=== PATIENT | female | born 1960 | race Caucasian/White ===

== ENCOUNTER 2018-02-27 17:27 | Emergency (ER) | payer OTHER ==
[~2018-02-27] VITALS: Ht 167.6 cm; Wt 143.3 kg
[~2018-02-27 17:27] MED LIST: (None)15 GM TOP; ACET325 PO; ACTOS; ARIP15; ARIP20 PO; ARIP30; ARIP30 PO; ASPI81EC; BASAGLAR K100 UNIT/1 SC; BUME2 PO; BUPR150T2; Bactrim Ds Tab1 EACH PO; CEPH500 PO; CHOL10002; CIPR250 PO; CLON1; CLON1 PO; CLOT1TC TOP; CLOTRIMAZOLE AF TOP; DOXY100 PO; ERGO400 PO; FLUO20; FLUT44OIA; FURO40; FURO40 PO; Flagyl500 MG PO; Flonase 0.05% N16 GM; GABA300 PO; GLIM4; HYDACE5 PO; IBUP600 PO; IBUP800 PO; INSDET100; INSULANI; INSULIN; LEVEMIR FL100 UNIT/1 SC; LEVEMIR FL100 UNIT/1 SQ; LORA1 PO; MELA3 PO; MELATONIN10 M2 PO; MELATONIN10 MG PO; METF500; METF500 PO; METO2.5 PO; MIRT15 PO; Macrobid 100 M100 MG PO; Micro-K10 MEQ PO; OMEP20ER PO; OXYACE5T PO; OXYB5 PO; PALI6TA; PALI6TA PO; PARO12.5; PARO20; PARO30; PAXIL CR; PERIDEX15 ML MM; PIOG15; PIOG45 PO; POTA10T; POTCHL10ER; Percocet 5-3251 EACH PO; Prozac40 MG PO; RANI150; RANI150 PO; SUDOGEST; Seroquel100 MG PO; TOPI25 PO; TRAM50 PO; TRAN2; TRAN2 PO; TRAVER4240; TRAZ100; TRAZ150T57 PO; TRAZ50; TRIA80TC TOP; Tylenol325 MG PO; Ultram50 MG PO; VERA240ER PO; ZIPR80; [UNRECOGNIZED DRUG - OTHER]; [UNRECOGNIZED DRUG - OTHER] PO; [UNRECOGNIZED DRUG - OTHER] PO; [UNRECOGNIZED DRUG - REMARK]
[2018-02-27 18:06] LABS: Source, Urine Voided
[2018-02-27] MEDS ORDERED: TRAN2 (18:09)
[2018-02-27] MEDS ORDERED: VERA240ER PO (18:09)
[2018-02-27] MEDS ORDERED: Prozac20 MG PO (18:09)
[2018-02-27] MEDS ORDERED: OXYB5 PO (18:10)
[2018-02-27] MEDS ORDERED: CLON1 PO (18:10)
[2018-02-27] MEDS ORDERED: CHOL10002 (18:10)
[2018-02-27] MEDS ORDERED: BUME2 PO (18:12)
[2018-02-27] MEDS ORDERED: POTCHL10ER PO (18:15)
[2018-02-27] MEDS ORDERED: SPIR25 PO (18:16)
[2018-02-27] MEDS ORDERED: GABA300 PO (18:16)
[2018-02-27] MEDS ORDERED: MELA3 PO (18:16)
[2018-02-27] MEDS ORDERED: OLAN7.5 PO (18:17)
[2018-02-27] MEDS ORDERED: RANI150 PO (18:18)
[2018-02-27] MEDS ORDERED: BASAGLAR K100 UNIT/1 SC (18:18)
[2018-02-27] MEDS ORDERED: SM PAIN RELIEV PO (18:18)
[2018-02-27 18:19] LABS: Appearance, Urine Clear (Clear); Bilirubin, Urine Neg (Neg); Blood, Urine Neg (Neg); Color, Urine Yellow (P-Yellow); Glucose Qualitative, Urine Neg (Neg); Ketones, Urine Neg (Neg); Leukocyte Esterase, Urine 3+ (Neg); Nitrite, Urine Pos (Neg); Protein, Urine Neg (Neg); Urobilinogen, Urine NORM (Normal)
[2018-02-27 18:23] LABS: BASOPHILS ABSOLUTE AUTO 0.03 K/mm3 (0.00-0.23); BASOPHILS PERCENT AUTO 0 % (0-2); EOSINOPHILS ABSOLUTE AUTO 0.71 K/mm3 (0.00-0.68); EOSINOPHILS PERCENT AUTO 7 % (0-6); Hematocrit 40.8 % (33.0-51.0); Hemoglobin 13.3 g/dL (11.5-16.0); IMMATURE GRAN ABSOLUTE AUTO 0.05 K/mm3 (0.00-0.10); IMMATURE GRAN PERCENT AUTO 1 % (0-1); LYMPHOCYTES ABSOLUTE AUTO 2.97 K/mm3 (0.84-5.20); LYMPHOCYTES PERCENT AUTO 30 % (21-46); MONOCYTES ABSOLUTE AUTO 0.94 K/mm3 (0.16-1.47); MONOCYTES PERCENT AUTO 9 % (4-13); Mean Corpuscular HGB 30.5 pg (26.0-34.0); Mean Corpuscular HGB Conc 32.6 g/dL (31.5-36.5); Mean Corpuscular Volume 94 fL (80-100); Mean Platelet Volume 9.6 fL (9.1-12.4); NEUTROPHILS ABSOLUTE AUTO 5.29 K/mm3 (1.96-9.15); NEUTROPHILS PERCENT AUTO 53 % (41-73); Platelet Count 233 K/mm3 (150-400); RDW Coefficient Variation 15.4 % (11.7-14.2); Red Blood Cell Count 4.36 M/mm3 (3.80-5.20); White Blood Cell Count 9.99 K/mm3 (4.00-11.30)
[2018-02-27 18:40] LABS: Albumin, Blood 3.6 g/dL (3.4-5.0); Albumin/Globulin Ratio 0.8 (0.8-1.8); Bilirubin, Total 0.3 mg/dL (0.1-1.0); Bun/Creatinine Ratio 28.4 (12.0-20.0); Calcium, Blood 9.2 mg/dL (8.5-10.1); Creatinine, Blood 2.08 mg/dL (0.40-1.00); Globulin, Blood 4.5 g/dL (2.2-4.0); Potassium, Blood 4.5 mmol/L (3.5-5.5); Total Protein, Blood 8.1 g/dL (6.4-8.2)
[2018-02-27 18:53] LABS: Bacteria Many /hpf; Red Blood Cells, Urine 0-2 /hpf (0-2); Squamous Epithelial Cells Few /hpf (Few); White Blood Cells, Urine 25-50 /hpf (0-5)
[2018-02-27] MEDS ORDERED: NITR100 PO (20:19)
== END 2018-02-27 20:38 | disposition home or self-care (01) ==
LOC: ER 17:27
PROVIDERS: Emergency Medicine
DX: N39.0 Urinary tract infection, site not specified (principal); E11.22 Type 2 diabetes mellitus with diabetic chronic kidney disease; N18.9 Chronic kidney disease, unspecified; N26.1 Atrophy of kidney (terminal); F32.9 Major depressive disorder, single episode, unspecified; E11.9 Type 2 diabetes mellitus without complications; Z87.891 Personal history of nicotine dependence; Z88.0 Allergy status to penicillin; Z79.899 Other long term (current) drug therapy; Z79.4 Long term (current) use of insulin; G40.909 Epilepsy, unspecified, not intractable, without status epilepticus
CPT/HCPCS: 36415; 76770; 80053; 81001; 82947; 85025; 87077; 87086; 87186; 96374; 96375; 99284; J0696; J1885; J2405

== ENCOUNTER 2018-03-15 22:14 | Emergency (ER) | payer OTHER ==
[~2018-03-15] VITALS: Ht 167.6 cm; Wt 142.0 kg
[~2018-03-15 22:14] MED LIST changes: +NITR100 PO; +OLAN7.5 PO; +POTCHL10ER PO; +Prozac20 MG PO; +SM PAIN RELIEV PO; +SPIR25 PO
[2018-03-16 00:29] LABS: Source, Urine Clean Catch
[2018-03-16 00:32] LABS: Bilirubin, Urine Neg (Neg); Blood, Urine Neg (Neg); Glucose Qualitative, Urine Neg (Neg); Ketones, Urine Neg (Neg); Leukocyte Esterase, Urine 3+ (Neg); Nitrite, Urine Pos (Neg); Protein, Urine Neg (Neg); Urobilinogen, Urine NORM (Normal)
[2018-03-16 00:33] LABS: Appearance, Urine Hazy (Clear); Color, Urine Pale Yellow (P-Yellow)
[2018-03-16 00:39] LABS: Bacteria Many /hpf; Red Blood Cells, Urine Not Seen /hpf (0-2); Squamous Epithelial Cells Few /hpf (Few); White Blood Cells, Urine 50-100 /hpf (0-5)
[2018-03-16] MEDS ORDERED: CEPH500 PO (04:34)
== END 2018-03-16 02:55 | disposition home or self-care (01) ==
LOC: ER 22:14
PROVIDERS: Emergency Medicine
DX: F32.9 Major depressive disorder, single episode, unspecified (principal); N39.0 Urinary tract infection, site not specified; Z88.0 Allergy status to penicillin; Z79.899 Other long term (current) drug therapy; Z79.4 Long term (current) use of insulin; Z79.2 Long term (current) use of antibiotics; E11.9 Type 2 diabetes mellitus without complications; F17.210 Nicotine dependence, cigarettes, uncomplicated
CPT/HCPCS: 81001; 87077; 87086; 87186; 99283

== ENCOUNTER → 2018-04-25 | Outpatient (CLI) | payer OTHER | END | disposition home or self-care (01) | LOC: LAB SHORT 09:51 → LAB EV 09:51 | DX: N39.0 Urinary tract infection, site not specified (principal) | CPT/HCPCS: 87077; 87086; 87186 ==

== ENCOUNTER 2018-06-04 10:05 | Emergency (ER) | payer OTHER ==
[~2018-06-04] VITALS: Ht 165.1 cm; Wt 140.6 kg
[2018-06-04] MEDS ORDERED: Prozac20 MG PO (11:30)
[2018-06-04] MEDS ORDERED: TRAN2 PO (11:31)
[2018-06-04] MEDS ORDERED: OXYB5 PO (11:31)
[2018-06-04] MEDS ORDERED: CHOL10002 PO (11:31)
[2018-06-04] MEDS ORDERED: CLON1 PO (11:31)
[2018-06-04] MEDS ORDERED: VERA240ER PO (11:31)
[2018-06-04] MEDS ORDERED: SPIR25 PO (11:32)
[2018-06-04] MEDS ORDERED: POTCHL10ER PO (11:32)
[2018-06-04] MEDS ORDERED: BUME2 PO ×2 (11:32)
[2018-06-04] MEDS ORDERED: OLAN7.5 PO (11:33)
[2018-06-04] MEDS ORDERED: GABA300 PO (11:33)
[2018-06-04] MEDS ORDERED: LITH300C PO (11:33)
[2018-06-04] MEDS ORDERED: RANI150EL PO (11:33)
[2018-06-04] MEDS ORDERED: METAMUCIL660 GM (11:34)
[2018-06-04] MEDS ORDERED: CEPH500 PO (11:34)
[2018-06-04] MEDS ORDERED: BASAGLAR K100 UNIT/1 SC (11:34)
[2018-06-04] MEDS ORDERED: TRAZ100 PO (11:34)
[2018-06-04 11:35] LABS: BASOPHILS ABSOLUTE AUTO 0.04 K/mm3 (0.00-0.23); BASOPHILS PERCENT AUTO 0 % (0-2); EOSINOPHILS ABSOLUTE AUTO 1.06 K/mm3 (0.00-0.68); EOSINOPHILS PERCENT AUTO 9 % (0-6); Hematocrit 43.5 % (33.0-51.0); Hemoglobin 14.3 g/dL (11.5-16.0); IMMATURE GRAN ABSOLUTE AUTO 0.06 K/mm3 (0.00-0.10); IMMATURE GRAN PERCENT AUTO 1 % (0-1); LYMPHOCYTES ABSOLUTE AUTO 2.76 K/mm3 (0.84-5.20); LYMPHOCYTES PERCENT AUTO 22 % (21-46); MONOCYTES PERCENT AUTO 6 % (4-13); Mean Corpuscular HGB 31.2 pg (26.0-34.0); Mean Corpuscular HGB Conc 32.9 g/dL (31.5-36.5); Mean Corpuscular Volume 95 fL (80-100); Mean Platelet Volume 9.8 fL (9.1-12.4); NEUTROPHILS ABSOLUTE AUTO 7.82 K/mm3 (1.96-9.15); NEUTROPHILS PERCENT AUTO 62 % (41-73); Platelet Count 253 K/mm3 (150-400); RDW Coefficient Variation 13.2 % (11.7-14.2); RDW Standard Deviation 46.4 fL (35.1-46.3); Red Blood Cell Count 4.58 M/mm3 (3.80-5.20); White Blood Cell Count 12.54 K/mm3 (4.00-11.30)
[2018-06-04 11:35] LABS: Source, Urine Voided
[2018-06-04 11:48] LABS: Appearance, Urine Cloudy (Clear); Bilirubin, Urine Neg (Neg); Blood, Urine 1+ (Neg); Color, Urine Yellow (P-Yellow); Glucose Qualitative, Urine Neg (Neg); Ketones, Urine Neg (Neg); Leukocyte Esterase, Urine 3+ (Neg); Nitrite, Urine Neg (Neg); Protein, Urine Neg (Neg); Urobilinogen, Urine NORM (Normal)
[2018-06-04 11:56] LABS: Alanine Aminotransfer (ALT/SGP 17 U/L (12-78); Albumin, Blood 3.9 g/dL (3.4-5.0); Albumin/Globulin Ratio 0.8 (0.8-1.8); Alk Phos 90 U/L (50-136); Anion Gap 7 mmol/L (6-16); Aspartate Aminotrans (AST/SGOT 20 U/L (12-37); Bilirubin, Total 0.4 mg/dL (0.1-1.0); Blood Urea Nitrogen 66 mg/dL (8-24); Bun/Creatinine Ratio 33.2 (12.0-20.0); CO2, Blood 30 mmol/L (21-32); Calcium, Blood 9.1 mg/dL (8.5-10.1); Chloride, Blood 101 mmol/L (98-108); Creatinine, Blood 1.99 mg/dL (0.40-1.00); Ethanol (Alcohol), Blood, Med <3 mg/dL; Globulin, Blood 4.6 g/dL (2.2-4.0); Glomerular Filtration Rate 28 (60-); Glucose, Blood 134 mg/dL (70-99); Potassium, Blood 4.3 mmol/L (3.5-5.5); Salicylate 3.5 mg/dL (2.8-20.0); Sodium, Blood 138 mmol/L (136-145); Total Protein, Blood 8.5 g/dL (6.4-8.2)
[2018-06-04 12:01] LABS: Bacteria Many /hpf; Squamous Epithelial Cells Few /hpf (Few); White Blood Cells, Urine 50-100 /hpf (0-5)
[2018-06-04 12:19] LABS: Acetaminophen, Random <2.0 ug/mL (10.0-30.0)
[2018-06-04 13:08] LABS: Lithium 0.53 mmol/L (0.60-1.20)
[2018-06-04 14:51] LABS: U Amphetamine Screen Not Detected; U Barbituate Screen Not Detected; U Benzodiazapine Screen Not Detected; U Buprenorphine Screen Not Detected; U Cannabinoids Screen Not Detected; U Cocaine Screen Not Detected; U Methadone Screen Not Detected; U Methamphetamine Screen Not Detected; U Opiates Screen Not Detected; U Oxycodone Screen Not Detected; U Phencyclidine Screen Not Detected; U Propoxyphene Screen Not Detected
== END 2018-06-04 13:31 | disposition home or self-care (01) ==
LOC: ER 10:05
PROVIDERS: Emergency Medicine
DX: F32.9 Major depressive disorder, single episode, unspecified (principal); L03.114 Cellulitis of left upper limb; N39.0 Urinary tract infection, site not specified; E11.9 Type 2 diabetes mellitus without complications; G40.909 Epilepsy, unspecified, not intractable, without status epilepticus; Z88.0 Allergy status to penicillin; Z79.899 Other long term (current) drug therapy; Z79.4 Long term (current) use of insulin
CPT/HCPCS: 36415; 80053; 80178; 81001; 81025; 84443; 85025; 87086; G0480

== ENCOUNTER 2018-07-15 08:52 | Emergency (ER) | payer OTHER ==
[~2018-07-15] VITALS: Ht 167.6 cm; Wt 142.9 kg
[~2018-07-15 08:52] MED LIST changes: +CHOL10002 PO; +LITH300C PO; +METAMUCIL660 GM; +RANI150EL PO; +TRAZ100 PO
[2018-07-15] MEDS ORDERED: GAVILAX17 GM PO (09:10)
== END 2018-07-15 15:12 | disposition home or self-care (01) ==
LOC: ER 08:52
DX: R45.1 Restlessness and agitation (principal); Z88.0 Allergy status to penicillin; Z79.899 Other long term (current) drug therapy; Z79.4 Long term (current) use of insulin; F32.9 Major depressive disorder, single episode, unspecified; E11.9 Type 2 diabetes mellitus without complications; F17.210 Nicotine dependence, cigarettes, uncomplicated
CPT/HCPCS: 99285; Q3014

== ENCOUNTER → 2018-07-29 | Outpatient (CLI) | payer OTHER ==
[~2018-07-29] MED LIST changes: +GAVILAX17 GM PO
== END | disposition home or self-care (01) ==
LOC: LAB SHORT 11:25 → LAB EV 11:25
DX: N39.0 Urinary tract infection, site not specified (principal)
CPT/HCPCS: 87077; 87086; 87186

== ENCOUNTER 2018-11-22 23:19 | Emergency (ER) | payer OTHER ==
[~2018-11-22] VITALS: Ht 172.7 cm; Wt 136.1 kg
[~2018-11-22 23:19] MED LIST changes: +ACID REDUCER 1150 MG PO; +ARIPIPRAZOLE5 MG PO; +CEFU500T30 PO; +OLAN2.5 PO
[2018-11-22 23:48] LABS: BASOPHILS ABSOLUTE AUTO 0.04 K/mm3 (0.00-0.23); BASOPHILS PERCENT AUTO 0 % (0-2); EOSINOPHILS ABSOLUTE AUTO 0.21 K/mm3 (0.00-0.68); EOSINOPHILS PERCENT AUTO 2 % (0-6); Hematocrit 40.9 % (33.0-51.0); Hemoglobin 13.1 g/dL (11.5-16.0); IMMATURE GRAN ABSOLUTE AUTO 0.04 K/mm3 (0.00-0.10); IMMATURE GRAN PERCENT AUTO 0 % (0-1); LYMPHOCYTES ABSOLUTE AUTO 2.32 K/mm3 (0.84-5.20); LYMPHOCYTES PERCENT AUTO 25 % (21-46); MONOCYTES ABSOLUTE AUTO 0.81 K/mm3 (0.16-1.47); MONOCYTES PERCENT AUTO 9 % (4-13); Mean Corpuscular HGB 31.6 pg (26.0-34.0); Mean Corpuscular Volume 99 fL (80-100); Mean Platelet Volume 9.6 fL (9.1-12.4); NEUTROPHILS ABSOLUTE AUTO 5.89 K/mm3 (1.96-9.15); NEUTROPHILS PERCENT AUTO 63 % (41-73); Platelet Count 213 K/mm3 (150-400); RDW Coefficient Variation 13.1 % (11.7-14.2); RDW Standard Deviation 47.5 fL (35.1-46.3); Red Blood Cell Count 4.15 M/mm3 (3.80-5.20); White Blood Cell Count 9.31 K/mm3 (4.00-11.30)
[2018-11-23 00:05] LABS: Albumin/Globulin Ratio 0.8 (0.8-1.8); Bilirubin, Total 0.3 mg/dL (0.1-1.0); Bun/Creatinine Ratio 14.8 (12.0-20.0); Calcium, Blood 8.7 mg/dL (8.5-10.1); Creatinine, Blood 1.15 mg/dL (0.40-1.00); Globulin, Blood 3.8 g/dL (2.2-4.0); Total Protein, Blood 6.8 g/dL (6.4-8.2)
[2018-11-23] MEDS ORDERED: LOPE2C PO (06:43)
== END 2018-11-23 00:27 | disposition left against medical advice (07) ==
LOC: ER 23:19
PROVIDERS: Emergency Medicine
DX: R53.83 Other fatigue (principal); R19.7 Diarrhea, unspecified; E86.0 Dehydration; Z88.0 Allergy status to penicillin; Z79.899 Other long term (current) drug therapy; Z79.4 Long term (current) use of insulin; F32.9 Major depressive disorder, single episode, unspecified; E11.9 Type 2 diabetes mellitus without complications; F17.210 Nicotine dependence, cigarettes, uncomplicated
CPT/HCPCS: 36415; 80053; 83690; 85025; 93005; 93010; 99284-25; J7030

== ENCOUNTER 2018-11-23 05:16 | Emergency (ER) | payer OTHER ==
[~2018-11-23] VITALS: Ht 160 cm; Wt 140.6 kg
[2018-11-23 05:46] LABS: Source, Urine Clean Catch
[2018-11-23 05:53] LABS: Bilirubin, Urine Neg (Neg); Blood, Urine 2+ (Neg); Glucose Qualitative, Urine Neg (Neg); Ketones, Urine 1+ (Neg); Leukocyte Esterase, Urine 3+ (Neg); Nitrite, Urine Neg (Neg); Protein, Urine 2+ (Neg); Specific Gravity, Urine 1.025 (1.003-1.022); Urobilinogen, Urine NORM (Normal)
[2018-11-23 06:02] LABS: Appearance, Urine Hazy (Clear); Color, Urine Yellow (P-Yellow)
[2018-11-23 06:03] LABS: Bacteria Many /hpf; Red Blood Cells, Urine 0-2 /hpf (0-2); Squamous Epithelial Cells Many /hpf (Few); White Blood Cells, Urine TNTC /hpf (0-5)
[2018-11-23] MEDS ORDERED: LOPE2C PO (06:43)
== END 2018-11-23 06:47 | disposition home or self-care (01) ==
LOC: ER 05:16
PROVIDERS: Emergency Medicine
DX: A08.4 Viral intestinal infection, unspecified (principal); F32.9 Major depressive disorder, single episode, unspecified; E11.9 Type 2 diabetes mellitus without complications; Z87.891 Personal history of nicotine dependence; Z88.0 Allergy status to penicillin; Z79.899 Other long term (current) drug therapy; Z79.4 Long term (current) use of insulin
CPT/HCPCS: 81001; 87086; 99283

== ENCOUNTER 2019-02-01 20:40 | Emergency (ER) | payer OTHER ==
[~2019-02-01] VITALS: Ht 167.6 cm; Wt 136.1 kg
[~2019-02-01 20:40] MED LIST changes: +LOPE2C PO
== END 2019-02-01 21:35 | disposition home or self-care (01) ==
LOC: ER 20:40
DX: F32.9 Major depressive disorder, single episode, unspecified (principal); Z88.0 Allergy status to penicillin; Z79.899 Other long term (current) drug therapy; E11.9 Type 2 diabetes mellitus without complications; Z87.891 Personal history of nicotine dependence
CPT/HCPCS: 99284

== ENCOUNTER 2019-02-10 22:12 | Emergency (ER) | payer OTHER ==
[~2019-02-10] VITALS: Ht 167.6 cm; Wt 156.5 kg
[2019-02-10 23:09] LABS: Source, Urine Clean Catch
[2019-02-10 23:15] LABS: Bilirubin, Urine Neg (Neg); Blood, Urine Neg (Neg); Glucose Qualitative, Urine Neg (Neg); Ketones, Urine Neg (Neg); Leukocyte Esterase, Urine 2+ (Neg); Nitrite, Urine Neg (Neg); Protein, Urine Neg (Neg); Urobilinogen, Urine NORM (Normal)
[2019-02-10 23:26] LABS: Appearance, Urine Hazy (Clear); Color, Urine Yellow (P-Yellow)
[2019-02-10 23:27] LABS: Bacteria Many /hpf; Red Blood Cells, Urine Not Seen /hpf (0-2); Squamous Epithelial Cells Mod /hpf (Few); Transitional Epithelial Cells Few /hpf (0-Rare); White Blood Cells, Urine TNTC /hpf (0-5)
[2019-02-10 23:28] LABS: U Amphetamine Screen Not Detected; U Barbituate Screen Not Detected; U Benzodiazapine Screen DETECTED; U Buprenorphine Screen Not Detected; U Cannabinoids Screen Not Detected; U Cocaine Screen Not Detected; U Methadone Screen Not Detected; U Methamphetamine Screen Not Detected; U Opiates Screen Not Detected; U Oxycodone Screen Not Detected; U Phencyclidine Screen Not Detected; U Propoxyphene Screen Not Detected
[2019-02-10 23:47] LABS: BASOPHILS ABSOLUTE AUTO 0.04 K/mm3 (0.00-0.23); BASOPHILS PERCENT AUTO 0 % (0-2); EOSINOPHILS ABSOLUTE AUTO 0.41 K/mm3 (0.00-0.68); EOSINOPHILS PERCENT AUTO 4 % (0-6); Hematocrit 43.1 % (33.0-51.0); Hemoglobin 13.8 g/dL (11.5-16.0); IMMATURE GRAN ABSOLUTE AUTO 0.03 K/mm3 (0.00-0.10); IMMATURE GRAN PERCENT AUTO 0 % (0-1); LYMPHOCYTES ABSOLUTE AUTO 2.81 K/mm3 (0.84-5.20); LYMPHOCYTES PERCENT AUTO 29 % (21-46); MONOCYTES ABSOLUTE AUTO 0.73 K/mm3 (0.16-1.47); MONOCYTES PERCENT AUTO 7 % (4-13); Mean Corpuscular HGB 30.9 pg (26.0-34.0); Mean Corpuscular Volume 96 fL (80-100); Mean Platelet Volume 9.9 fL (9.1-12.4); NEUTROPHILS ABSOLUTE AUTO 5.85 K/mm3 (1.96-9.15); NEUTROPHILS PERCENT AUTO 59 % (41-73); Platelet Count 203 K/mm3 (150-400); RDW Coefficient Variation 13.2 % (11.7-14.2); RDW Standard Deviation 47.4 fL (35.1-46.3); Red Blood Cell Count 4.47 M/mm3 (3.80-5.20); White Blood Cell Count 9.87 K/mm3 (4.00-11.30)
[2019-02-11 00:11] LABS: Alanine Aminotransfer (ALT/SGP 15 U/L (12-78); Albumin, Blood 3.3 g/dL (3.4-5.0); Albumin/Globulin Ratio 0.9 (0.8-1.8); Alk Phos 78 U/L (50-136); Anion Gap 8 mmol/L (6-16); Aspartate Aminotrans (AST/SGOT 9 U/L (12-37); Bilirubin, Total 0.3 mg/dL (0.1-1.0); Blood Urea Nitrogen 41 mg/dL (8-24); Bun/Creatinine Ratio 26.3 (12.0-20.0); CO2, Blood 28 mmol/L (21-32); Calcium, Blood 8.4 mg/dL (8.5-10.1); Chloride, Blood 106 mmol/L (98-108); Creatinine, Blood 1.56 mg/dL (0.40-1.00); Ethanol (Alcohol), Blood, Med <3 mg/dL; Globulin, Blood 3.7 g/dL (2.2-4.0); Glomerular Filtration Rate 36 (60-); Glucose, Blood 99 mg/dL (70-99); Salicylate <1.7 mg/dL (2.8-20.0); Sodium, Blood 142 mmol/L (136-145)
[2019-02-11 00:17] LABS: Acetaminophen, Random <2.0 ug/mL (10.0-30.0)
== END 2019-02-11 03:47 | disposition home or self-care (01) ==
LOC: ER 22:12
PROVIDERS: Emergency Medicine
DX: N39.0 Urinary tract infection, site not specified (principal); F32.9 Major depressive disorder, single episode, unspecified; Z88.0 Allergy status to penicillin; Z79.899 Other long term (current) drug therapy; Z79.4 Long term (current) use of insulin; E11.9 Type 2 diabetes mellitus without complications; Z87.891 Personal history of nicotine dependence
CPT/HCPCS: 80053; 81001; 84443; 85025; 87077; 87086; 87186; 99284; G0480; Q3014

== ENCOUNTER 2019-02-17 21:28 | Emergency (ER) | payer OTHER ==
[~2019-02-17] VITALS: Ht 167.6 cm; Wt 156.5 kg
[2019-02-17] MEDS ORDERED: MELATONIN5 M1 PO (21:48)
[2019-02-17] MEDS ORDERED: TOPI50 PO (21:50)
[2019-02-17 21:58] LABS: BASOPHILS ABSOLUTE AUTO 0.04 K/mm3 (0.00-0.23); BASOPHILS PERCENT AUTO 0 % (0-2); EOSINOPHILS ABSOLUTE AUTO 0.47 K/mm3 (0.00-0.68); EOSINOPHILS PERCENT AUTO 5 % (0-6); Hematocrit 43.1 % (33.0-51.0); Hemoglobin 13.9 g/dL (11.5-16.0); IMMATURE GRAN ABSOLUTE AUTO 0.04 K/mm3 (0.00-0.10); IMMATURE GRAN PERCENT AUTO 0 % (0-1); LYMPHOCYTES ABSOLUTE AUTO 3.32 K/mm3 (0.84-5.20); LYMPHOCYTES PERCENT AUTO 33 % (21-46); MONOCYTES ABSOLUTE AUTO 1.03 K/mm3 (0.16-1.47); MONOCYTES PERCENT AUTO 10 % (4-13); Mean Corpuscular HGB 31.6 pg (26.0-34.0); Mean Corpuscular HGB Conc 32.3 g/dL (31.5-36.5); Mean Corpuscular Volume 98 fL (80-100); Mean Platelet Volume 10.1 fL (9.1-12.4); NEUTROPHILS ABSOLUTE AUTO 5.25 K/mm3 (1.96-9.15); NEUTROPHILS PERCENT AUTO 52 % (41-73); Platelet Count 216 K/mm3 (150-400); RDW Coefficient Variation 13.2 % (11.7-14.2); RDW Standard Deviation 48.1 fL (35.1-46.3); White Blood Cell Count 10.15 K/mm3 (4.00-11.30)
[2019-02-17 22:07] LABS: Source, Urine Clean Catch
[2019-02-17 22:10] LABS: Appearance, Urine Clear (Clear); Bilirubin, Urine Neg (Neg); Blood, Urine Neg (Neg); Color, Urine Pale Yellow (P-Yellow); Glucose Qualitative, Urine Neg (Neg); Ketones, Urine Neg (Neg); Leukocyte Esterase, Urine Neg (Neg); Nitrite, Urine Neg (Neg); Protein, Urine Neg (Neg); Urobilinogen, Urine NORM (Normal); pH, Urine 6.5 (5.0-8.0)
[2019-02-17 22:16] LABS: Ethanol (Alcohol), Blood, Med <3 mg/dL
[2019-02-17 22:17] LABS: Alanine Aminotransfer (ALT/SGP 18 U/L (12-78); Albumin, Blood 3.2 g/dL (3.4-5.0); Albumin/Globulin Ratio 0.9 (0.8-1.8); Alk Phos 79 U/L (50-136); Anion Gap 8 mmol/L (6-16); Aspartate Aminotrans (AST/SGOT 9 U/L (12-37); Bilirubin, Total 0.4 mg/dL (0.1-1.0); Blood Urea Nitrogen 44 mg/dL (8-24); Bun/Creatinine Ratio 26.7 (12.0-20.0); CO2, Blood 28 mmol/L (21-32); Calcium, Blood 8.5 mg/dL (8.5-10.1); Chloride, Blood 108 mmol/L (98-108); Creatinine, Blood 1.65 mg/dL (0.40-1.00); Globulin, Blood 3.7 g/dL (2.2-4.0); Glomerular Filtration Rate 34 (60-); Glucose, Blood 161 mg/dL (70-99); Potassium, Blood 3.9 mmol/L (3.5-5.5); Sodium, Blood 144 mmol/L (136-145); Total Protein, Blood 6.9 g/dL (6.4-8.2)
[2019-02-17 22:22] LABS: U Amphetamine Screen Not Detected; U Barbituate Screen Not Detected; U Benzodiazapine Screen Not Detected; U Buprenorphine Screen Not Detected; U Cannabinoids Screen Not Detected; U Cocaine Screen Not Detected; U Methadone Screen Not Detected; U Methamphetamine Screen Not Detected; U Opiates Screen Not Detected; U Oxycodone Screen Not Detected; U Phencyclidine Screen Not Detected; U Propoxyphene Screen Not Detected
[2019-02-17 22:29] LABS: Salicylate <1.7 mg/dL (2.8-20.0)
[2019-02-17 22:32] LABS: Acetaminophen, Random <2.0 ug/mL (10.0-30.0)
== END 2019-02-17 23:22 | disposition home or self-care (01) ==
LOC: ER 21:28
PROVIDERS: Emergency Medicine
DX: T46.4X1A Poisoning by angiotensin-converting-enzyme inhibitors, accidental (unintentional), initial encounter (principal); T46.1X1A Poisoning by calcium-channel blockers, accidental (unintentional), initial encounter; T42.4X1A Poisoning by benzodiazepines, accidental (unintentional), initial encounter; Z88.0 Allergy status to penicillin; Z79.899 Other long term (current) drug therapy; F32.9 Major depressive disorder, single episode, unspecified; E11.9 Type 2 diabetes mellitus without complications; F17.210 Nicotine dependence, cigarettes, uncomplicated
CPT/HCPCS: 80053; 81003; 85025; 93005; 93010; 99284-25; G0480

== ENCOUNTER → 2019-02-22 | Outpatient (CLI) | payer OTHER ==
[~2019-02-22] MED LIST changes: +MELATONIN5 M1 PO; +TOPI50 PO
== END | disposition home or self-care (01) ==
LOC: PLD 07:43 → LAB SHORT 07:43
DX: N95.0 Postmenopausal bleeding (principal)
CPT/HCPCS: 88305

== ENCOUNTER → 2019-02-22 | Outpatient (CLI) | payer OTHER ==
[2019-02-24 14:07] LABS: HPV 16 Negative (Negative); HPV 18 Negative (Negative); HPV OTHER HR TYPES Negative (Negative)
== END | disposition home or self-care (01) ==
LOC: LAB SHORT 14:44 → LAB 14:44
PROVIDERS: Obstetrics & Gynecology
DX: N95.0 Postmenopausal bleeding (principal)
CPT/HCPCS: 87624; 88142

== ENCOUNTER 2019-03-19 22:37 | Emergency (ER) | payer OTHER ==
[~2019-03-19] VITALS: Ht 167.6 cm; Wt 155.1 kg
[2019-03-19 23:40] LABS: Source, Urine Clean Catch
[2019-03-19 23:43] LABS: Appearance, Urine Cloudy (Clear); Bilirubin, Urine Neg (Neg); Blood, Urine 2+ (Neg); Color, Urine Yellow (P-Yellow); Glucose Qualitative, Urine Neg (Neg); Ketones, Urine Neg (Neg); Leukocyte Esterase, Urine 3+ (Neg); Nitrite, Urine Neg (Neg); Protein, Urine 1+ (Neg); Specific Gravity, Urine 1.015 (1.003-1.022); Urobilinogen, Urine NORM (Normal); pH, Urine 6.5 (5.0-8.0)
[2019-03-19 23:48] LABS: Bacteria Many /hpf; Red Blood Cells, Urine 0-2 /hpf (0-2); Squamous Epithelial Cells Mod /hpf (Few); White Blood Cells, Urine TNTC /hpf (0-5)
[2019-03-19 23:51] LABS: BASOPHILS ABSOLUTE AUTO 0.06 K/mm3 (0.00-0.23); BASOPHILS PERCENT AUTO 0 % (0-2); EOSINOPHILS ABSOLUTE AUTO 0.58 K/mm3 (0.00-0.68); EOSINOPHILS PERCENT AUTO 3 % (0-6); Hematocrit 38.2 % (33.0-51.0); Hemoglobin 12.2 g/dL (11.5-16.0); IMMATURE GRAN ABSOLUTE AUTO 0.48 K/mm3 (0.00-0.10); IMMATURE GRAN PERCENT AUTO 3 % (0-1); LYMPHOCYTES ABSOLUTE AUTO 3.33 K/mm3 (0.84-5.20); LYMPHOCYTES PERCENT AUTO 19 % (21-46); MONOCYTES ABSOLUTE AUTO 1.15 K/mm3 (0.16-1.47); MONOCYTES PERCENT AUTO 7 % (4-13); Mean Corpuscular HGB Conc 31.9 g/dL (31.5-36.5); Mean Corpuscular Volume 97 fL (80-100); Mean Platelet Volume 9.4 fL (9.1-12.4); NEUTROPHILS ABSOLUTE AUTO 11.92 K/mm3 (1.96-9.15); NEUTROPHILS PERCENT AUTO 68 % (41-73); Platelet Count 267 K/mm3 (150-400); RDW Coefficient Variation 13.2 % (11.7-14.2); RDW Standard Deviation 47.6 fL (35.1-46.3); Red Blood Cell Count 3.94 M/mm3 (3.80-5.20); White Blood Cell Count 17.52 K/mm3 (4.00-11.30)
[2019-03-20 00:09] LABS: Albumin, Blood 2.4 g/dL (3.4-5.0); Albumin/Globulin Ratio 0.5 (0.8-1.8); Bilirubin, Total 0.2 mg/dL (0.1-1.0); Bun/Creatinine Ratio 20.4 (12.0-20.0); Creatinine, Blood 1.52 mg/dL (0.40-1.00); Globulin, Blood 4.8 g/dL (2.2-4.0); Total Protein, Blood 7.2 g/dL (6.4-8.2)
[2019-03-20] MEDS ORDERED: CEPH500 PO (00:28)
== END 2019-03-20 00:54 | disposition home or self-care (01) ==
LOC: ER 22:37
PROVIDERS: Emergency Medicine
DX: N12 Tubulo-interstitial nephritis, not specified as acute or chronic (principal); F32.9 Major depressive disorder, single episode, unspecified; E11.9 Type 2 diabetes mellitus without complications; F17.200 Nicotine dependence, unspecified, uncomplicated; Z79.899 Other long term (current) drug therapy; Z88.0 Allergy status to penicillin
CPT/HCPCS: 80053; 81001; 83690; 85025; 87086; 96361; 96365; 96375; 99284-25; J0696; J1170; J2405; J7120

== ENCOUNTER 2019-03-22 22:39 | Emergency (ER) | payer OTHER ==
[~2019-03-22] VITALS: Ht 162.6 cm; Wt 170.1 kg
[2019-03-22 23:41] LABS: BASOPHILS ABSOLUTE AUTO 0.06 K/mm3 (0.00-0.23); BASOPHILS PERCENT AUTO 0 % (0-2); EOSINOPHILS ABSOLUTE AUTO 0.47 K/mm3 (0.00-0.68); EOSINOPHILS PERCENT AUTO 4 % (0-6); Hematocrit 39.8 % (33.0-51.0); Hemoglobin 12.4 g/dL (11.5-16.0); IMMATURE GRAN ABSOLUTE AUTO 0.24 K/mm3 (0.00-0.10); IMMATURE GRAN PERCENT AUTO 2 % (0-1); LYMPHOCYTES PERCENT AUTO 21 % (21-46); MONOCYTES ABSOLUTE AUTO 0.97 K/mm3 (0.16-1.47); MONOCYTES PERCENT AUTO 7 % (4-13); Mean Corpuscular HGB 30.5 pg (26.0-34.0); Mean Corpuscular HGB Conc 31.2 g/dL (31.5-36.5); Mean Corpuscular Volume 98 fL (80-100); Mean Platelet Volume 9.1 fL (9.1-12.4); NEUTROPHILS ABSOLUTE AUTO 8.93 K/mm3 (1.96-9.15); NEUTROPHILS PERCENT AUTO 66 % (41-73); Platelet Count 281 K/mm3 (150-400); RDW Coefficient Variation 13.1 % (11.7-14.2); Red Blood Cell Count 4.07 M/mm3 (3.80-5.20); White Blood Cell Count 13.47 K/mm3 (4.00-11.30)
[2019-03-22 23:59] LABS: Alanine Aminotransfer (ALT/SGP 16 U/L (12-78); Albumin, Blood 2.7 g/dL (3.4-5.0); Albumin/Globulin Ratio 0.6 (0.8-1.8); Alk Phos 83 U/L (50-136); Anion Gap 6 mmol/L (6-16); Aspartate Aminotrans (AST/SGOT 19 U/L (12-37); Bilirubin, Total 0.2 mg/dL (0.1-1.0); Blood Urea Nitrogen 33 mg/dL (8-24); Bun/Creatinine Ratio 24.4 (12.0-20.0); CO2, Blood 28 mmol/L (21-32); Calcium, Blood 8.8 mg/dL (8.5-10.1); Chloride, Blood 107 mmol/L (98-108); Creatinine, Blood 1.35 mg/dL (0.40-1.00); Ethanol (Alcohol), Blood, Med <3 mg/dL; Globulin, Blood 4.5 g/dL (2.2-4.0); Glomerular Filtration Rate 43 (60-); Glucose, Blood 204 mg/dL (70-99); Potassium, Blood 3.8 mmol/L (3.5-5.5); Salicylate <1.7 mg/dL (2.8-20.0); Sodium, Blood 141 mmol/L (136-145); Total Protein, Blood 7.2 g/dL (6.4-8.2)
[2019-03-23 00:02] LABS: Acetaminophen, Random <2.0 ug/mL (10.0-30.0)
== END 2019-03-23 00:02 | disposition home or self-care (01) ==
LOC: ER 22:39
PROVIDERS: Physician Assistant
DX: Z04.6 Encounter for general psychiatric examination, requested by authority (principal); Z88.0 Allergy status to penicillin; Z79.899 Other long term (current) drug therapy; F32.9 Major depressive disorder, single episode, unspecified; E11.22 Type 2 diabetes mellitus with diabetic chronic kidney disease; N18.9 Chronic kidney disease, unspecified; F17.210 Nicotine dependence, cigarettes, uncomplicated
CPT/HCPCS: 80053; 85025; 99284; G0480

== ENCOUNTER 2019-05-05 01:35 | Emergency (ER) | payer OTHER ==
[~2019-05-05] VITALS: Ht 167.6 cm; Wt 136.1 kg
== END 2019-05-05 03:15 | disposition home or self-care (01) ==
LOC: ER 01:35
DX: F32.9 Major depressive disorder, single episode, unspecified (principal); Z88.0 Allergy status to penicillin; Z79.899 Other long term (current) drug therapy; E11.9 Type 2 diabetes mellitus without complications; F17.210 Nicotine dependence, cigarettes, uncomplicated
CPT/HCPCS: 99284

== ENCOUNTER 2019-05-12 23:08 | Emergency (ER) | payer OTHER ==
[~2019-05-12] VITALS: Ht 167.6 cm; Wt 148.3 kg
[2019-09-15] MEDS ORDERED: MELA3 PO (17:13)
[2019-09-15] MEDS ORDERED: LEVO750 PO (17:15)
[2019-09-15] MEDS ORDERED: Florastor250 MG PO (17:15)
== END 2019-05-12 23:45 | disposition left against medical advice (07) ==
LOC: ER 23:08
DX: Z53.21 Procedure and treatment not carried out due to patient leaving prior to being seen by health care provider (principal)

== ENCOUNTER 2019-05-13 00:43 | Emergency (ER) | payer OTHER ==
[~2019-05-13] VITALS: Ht 167.6 cm; Wt 148.3 kg
[2019-09-15] MEDS ORDERED: MELA3 PO (17:13)
[2019-09-15] MEDS ORDERED: LEVO750 PO (17:15)
[2019-09-15] MEDS ORDERED: Florastor250 MG PO (17:15)
== END 2019-05-13 02:20 | disposition home or self-care (01) ==
LOC: ER 00:43
DX: K80.20 Calculus of gallbladder without cholecystitis without obstruction (principal); F32.9 Major depressive disorder, single episode, unspecified; Z88.0 Allergy status to penicillin; Z79.899 Other long term (current) drug therapy; E11.9 Type 2 diabetes mellitus without complications; F17.210 Nicotine dependence, cigarettes, uncomplicated
CPT/HCPCS: 99284

== ENCOUNTER 2019-05-18 05:34 | Emergency (ER) | payer OTHER ==
[~2019-05-18] VITALS: Ht 167.6 cm; Wt 148.3 kg
[2019-05-18 06:03] LABS: BASOPHILS ABSOLUTE AUTO 0.04 K/mm3 (0.00-0.23); BASOPHILS PERCENT AUTO 0 % (0-2); EOSINOPHILS ABSOLUTE AUTO 0.45 K/mm3 (0.00-0.68); EOSINOPHILS PERCENT AUTO 4 % (0-6); Hematocrit 40.8 % (33.0-51.0); Hemoglobin 13.2 g/dL (11.5-16.0); IMMATURE GRAN ABSOLUTE AUTO 0.08 K/mm3 (0.00-0.10); IMMATURE GRAN PERCENT AUTO 1 % (0-1); LYMPHOCYTES ABSOLUTE AUTO 3.71 K/mm3 (0.84-5.20); LYMPHOCYTES PERCENT AUTO 29 % (21-46); MONOCYTES ABSOLUTE AUTO 1.01 K/mm3 (0.16-1.47); MONOCYTES PERCENT AUTO 8 % (4-13); Mean Corpuscular HGB 31.2 pg (26.0-34.0); Mean Corpuscular HGB Conc 32.4 g/dL (31.5-36.5); Mean Corpuscular Volume 97 fL (80-100); Mean Platelet Volume 9.6 fL (9.1-12.4); NEUTROPHILS ABSOLUTE AUTO 7.74 K/mm3 (1.96-9.15); NEUTROPHILS PERCENT AUTO 59 % (41-73); Platelet Count 229 K/mm3 (150-400); RDW Coefficient Variation 13.4 % (11.7-14.2); RDW Standard Deviation 47.8 fL (35.1-46.3); Red Blood Cell Count 4.23 M/mm3 (3.80-5.20); White Blood Cell Count 13.03 K/mm3 (4.00-11.30)
[2019-05-18 06:19] LABS: Albumin, Blood 3.2 g/dL (3.4-5.0); Albumin/Globulin Ratio 0.8 (0.8-1.8); Bilirubin, Total 0.3 mg/dL (0.1-1.0); Calcium, Blood 8.9 mg/dL (8.5-10.1); Creatinine, Blood 1.39 mg/dL (0.40-1.00); Globulin, Blood 3.9 g/dL (2.2-4.0); Total Protein, Blood 7.1 g/dL (6.4-8.2)
[2019-09-15] MEDS ORDERED: MELA3 PO (17:13)
[2019-09-15] MEDS ORDERED: Florastor250 MG PO (17:15)
[2019-09-15] MEDS ORDERED: LEVO750 PO (17:15)
== END 2019-05-18 07:06 | disposition home or self-care (01) ==
LOC: ER 05:34
PROVIDERS: Emergency Medicine
DX: R10.11 Right upper quadrant pain (principal); Z88.0 Allergy status to penicillin; Z79.899 Other long term (current) drug therapy; F32.9 Major depressive disorder, single episode, unspecified; E11.9 Type 2 diabetes mellitus without complications; F17.210 Nicotine dependence, cigarettes, uncomplicated
CPT/HCPCS: 36415; 80053; 83690; 85025; 99284

== ENCOUNTER 2019-05-20 21:51 | Observation (INO) | payer OTHER ==
[~2019-05-20] VITALS: Ht 167.6 cm; Wt 148.3 kg
[2019-09-15] MEDS ORDERED: MELA3 PO (17:13)
[2019-09-15] MEDS ORDERED: LEVO750 PO (17:15)
[2019-09-15] MEDS ORDERED: Florastor250 MG PO (17:15)
== END 2019-05-21 09:10 | disposition home or self-care (01) ==
LOC: ER 21:51 → EOR 21:52
PROVIDERS: ADMIT Emergency Medicine
DX: F32.9 Major depressive disorder, single episode, unspecified (principal); E11.9 Type 2 diabetes mellitus without complications; F17.210 Nicotine dependence, cigarettes, uncomplicated; Z88.0 Allergy status to penicillin; Z79.899 Other long term (current) drug therapy
CPT/HCPCS: 82947; 99285; G0378

== ENCOUNTER 2019-05-22 22:06 | Emergency (ER) | payer OTHER ==
[~2019-05-22] VITALS: Ht 167.6 cm; Wt 148.3 kg
[2019-05-22 23:23] LABS: BASOPHILS ABSOLUTE AUTO 0.04 K/mm3 (0.00-0.23); BASOPHILS PERCENT AUTO 0 % (0-2); EOSINOPHILS PERCENT AUTO 5 % (0-6); Hematocrit 40.2 % (33.0-51.0); Hemoglobin 12.9 g/dL (11.5-16.0); IMMATURE GRAN ABSOLUTE AUTO 0.06 K/mm3 (0.00-0.10); IMMATURE GRAN PERCENT AUTO 1 % (0-1); LYMPHOCYTES ABSOLUTE AUTO 3.86 K/mm3 (0.84-5.20); LYMPHOCYTES PERCENT AUTO 31 % (21-46); MONOCYTES ABSOLUTE AUTO 1.05 K/mm3 (0.16-1.47); MONOCYTES PERCENT AUTO 8 % (4-13); Mean Corpuscular HGB 31.5 pg (26.0-34.0); Mean Corpuscular HGB Conc 32.1 g/dL (31.5-36.5); Mean Corpuscular Volume 98 fL (80-100); Mean Platelet Volume 9.8 fL (9.1-12.4); NEUTROPHILS ABSOLUTE AUTO 7.05 K/mm3 (1.96-9.15); NEUTROPHILS PERCENT AUTO 56 % (41-73); Platelet Count 228 K/mm3 (150-400); RDW Coefficient Variation 13.4 % (11.7-14.2); RDW Standard Deviation 48.3 fL (35.1-46.3); White Blood Cell Count 12.66 K/mm3 (4.00-11.30)
[2019-05-22 23:41] LABS: Alanine Aminotransfer (ALT/SGP 21 U/L (12-78); Albumin/Globulin Ratio 0.8 (0.8-1.8); Alk Phos 83 U/L (50-136); Anion Gap 4 mmol/L (6-16); Aspartate Aminotrans (AST/SGOT 15 U/L (12-37); Bilirubin, Total 0.2 mg/dL (0.1-1.0); Blood Urea Nitrogen 38 mg/dL (8-24); Bun/Creatinine Ratio 28.8 (12.0-20.0); CO2, Blood 31 mmol/L (21-32); Calcium, Blood 8.8 mg/dL (8.5-10.1); Chloride, Blood 106 mmol/L (98-108); Creatinine, Blood 1.32 mg/dL (0.40-1.00); Globulin, Blood 3.9 g/dL (2.2-4.0); Glomerular Filtration Rate 44 (60-); Glucose, Blood 138 mg/dL (70-99); Potassium, Blood 3.8 mmol/L (3.5-5.5); Sodium, Blood 141 mmol/L (136-145); Total Protein, Blood 6.9 g/dL (6.4-8.2); Troponin I <0.015 ng/mL (0.000-0.040)
[2019-09-15] MEDS ORDERED: MELA3 PO (17:13)
[2019-09-15] MEDS ORDERED: Florastor250 MG PO (17:15)
[2019-09-15] MEDS ORDERED: LEVO750 PO (17:15)
== END 2019-05-23 00:49 | disposition home or self-care (01) ==
LOC: ER 22:06
PROVIDERS: Emergency Medicine
DX: R07.9 Chest pain, unspecified (principal); F32.9 Major depressive disorder, single episode, unspecified; E11.9 Type 2 diabetes mellitus without complications; Z88.0 Allergy status to penicillin; Z79.899 Other long term (current) drug therapy; F17.200 Nicotine dependence, unspecified, uncomplicated
CPT/HCPCS: 71045; 80053; 83690; 84484; 85025; 93005; 93010; 96374; 99285-25; J2405

== ENCOUNTER → 2019-05-25 | Outpatient (CLI) | payer OTHER ==
[~2019-05-25] MED LIST changes: +ALBU90OI INH; +Benedryl E12.5 MG/5 PO; +Bumetanide2 MG PO; +Chlor-Trimeton4 MG PO; +Florastor250 MG PO; +INSULIN GLARGINE SC; +Keflex500 MG PO; +LEVFLO500 PO; +LEVO750 PO; +MIRALAX17 GM PO; +Monodox100 MG PO; +POTA10T PO; +Prednisone20 MG PO; +QUET100 PO; +Venlafaxine HC225 MG PO
[2019-05-25 17:14] LABS: Bilirubin, Urine Neg (Neg); Blood, Urine Neg (Neg); Glucose Qualitative, Urine Neg (Neg); Ketones, Urine Neg (Neg); Leukocyte Esterase, Urine 3+ (Neg); Nitrite, Urine Pos (Neg); Protein, Urine Neg (Neg); Specific Gravity, Urine 1.005 (1.003-1.022); Urobilinogen, Urine NORM (Normal)
[2019-05-25 17:24] LABS: Appearance, Urine Clear (Clear); Color, Urine Yellow (P-Yellow)
[2019-05-25 17:25] LABS: Bacteria Many /hpf; Red Blood Cells, Urine 0-2 /hpf (0-2); Squamous Epithelial Cells Few /hpf (Few)
== END ==
LOC: LAB SHORT 16:47 → LAB 16:47
PROVIDERS: Nurse Practitioner Family
DX: N39.0 Urinary tract infection, site not specified (principal); R82.90 Unspecified abnormal findings in urine
CPT/HCPCS: 81001; 87077; 87086; 87186

== ENCOUNTER 2019-05-27 21:42 | Observation (INO) | payer OTHER ==
[~2019-05-27] VITALS: Ht 167.6 cm; Wt 148.3 kg
[~2019-05-27 21:42] MED LIST changes: -ALBU90OI INH; -Benedryl E12.5 MG/5 PO; -Bumetanide2 MG PO; -Chlor-Trimeton4 MG PO; -Florastor250 MG PO; -INSULIN GLARGINE SC; -Keflex500 MG PO; -LEVFLO500 PO; -LEVO750 PO; -MIRALAX17 GM PO; -Monodox100 MG PO; -POTA10T PO; -Prednisone20 MG PO; -QUET100 PO; -Venlafaxine HC225 MG PO
[2019-05-27 23:38] LABS: BASOPHILS ABSOLUTE AUTO 0.03 K/mm3 (0.00-0.23); BASOPHILS PERCENT AUTO 0 % (0-2); EOSINOPHILS ABSOLUTE AUTO 0.51 K/mm3 (0.00-0.68); EOSINOPHILS PERCENT AUTO 5 % (0-6); Hematocrit 40.1 % (33.0-51.0); Hemoglobin 12.8 g/dL (11.5-16.0); IMMATURE GRAN ABSOLUTE AUTO 0.04 K/mm3 (0.00-0.10); IMMATURE GRAN PERCENT AUTO 0 % (0-1); LYMPHOCYTES ABSOLUTE AUTO 2.96 K/mm3 (0.84-5.20); LYMPHOCYTES PERCENT AUTO 31 % (21-46); MONOCYTES ABSOLUTE AUTO 0.86 K/mm3 (0.16-1.47); MONOCYTES PERCENT AUTO 9 % (4-13); Mean Corpuscular HGB 31.3 pg (26.0-34.0); Mean Corpuscular HGB Conc 31.9 g/dL (31.5-36.5); Mean Corpuscular Volume 98 fL (80-100); NEUTROPHILS PERCENT AUTO 54 % (41-73); Platelet Count 214 K/mm3 (150-400); RDW Coefficient Variation 13.4 % (11.7-14.2); RDW Standard Deviation 48.7 fL (35.1-46.3); Red Blood Cell Count 4.09 M/mm3 (3.80-5.20)
[2019-05-27 23:55] LABS: Alanine Aminotransfer (ALT/SGP 22 U/L (12-78); Albumin/Globulin Ratio 0.8 (0.8-1.8); Alk Phos 88 U/L (50-136); Anion Gap 6 mmol/L (6-16); Aspartate Aminotrans (AST/SGOT 16 U/L (12-37); Bilirubin, Total 0.2 mg/dL (0.1-1.0); Blood Urea Nitrogen 54 mg/dL (8-24); Bun/Creatinine Ratio 28.1 (12.0-20.0); CO2, Blood 29 mmol/L (21-32); Calcium, Blood 9.6 mg/dL (8.5-10.1); Chloride, Blood 104 mmol/L (98-108); Creatinine, Blood 1.92 mg/dL (0.40-1.00); Ethanol (Alcohol), Blood, Med <3 mg/dL; Globulin, Blood 3.8 g/dL (2.2-4.0); Glomerular Filtration Rate 29 (60-); Glucose, Blood 193 mg/dL (70-99); Potassium, Blood 4.8 mmol/L (3.5-5.5); Salicylate 1.8 mg/dL (2.8-20.0); Sodium, Blood 139 mmol/L (136-145); Total Protein, Blood 6.8 g/dL (6.4-8.2)
[2019-05-28 00:05] LABS: Acetaminophen, Random <2.0 ug/mL (10.0-30.0)
[2019-05-28 03:41] LABS: Source, Urine Clean Catch
[2019-05-28 03:50] LABS: Bilirubin, Urine Neg (Neg); Blood, Urine Neg (Neg); Glucose Qualitative, Urine Neg (Neg); Ketones, Urine Neg (Neg); Leukocyte Esterase, Urine 1+ (Neg); Nitrite, Urine Neg (Neg); Protein, Urine Neg (Neg); Urobilinogen, Urine NORM (Normal); pH, Urine 6.5 (5.0-8.0)
[2019-05-28 03:55] LABS: Appearance, Urine Hazy (Clear); Color, Urine Pale Yellow (P-Yellow)
[2019-05-28 03:59] LABS: U Amphetamine Screen Not Detected; U Barbituate Screen Not Detected; U Benzodiazapine Screen DETECTED; U Buprenorphine Screen Not Detected; U Cannabinoids Screen Not Detected; U Cocaine Screen Not Detected; U Methadone Screen Not Detected; U Methamphetamine Screen Not Detected; U Opiates Screen Not Detected; U Oxycodone Screen Not Detected; U Phencyclidine Screen Not Detected; U Propoxyphene Screen Not Detected
[2019-05-28 04:08] LABS: Amorphous Light (0-Heavy); Bacteria Few /hpf; Red Blood Cells, Urine Not Seen /hpf (0-2); Squamous Epithelial Cells Mod /hpf (Few); White Blood Cells, Urine 50-100 /hpf (0-5)
[2019-05-28] MEDS ORDERED: Bactrim Ds Tab1 EACH PO (05:35)
[2019-09-15] MEDS ORDERED: MELA3 PO (17:13)
[2019-09-15] MEDS ORDERED: Florastor250 MG PO (17:15)
[2019-09-15] MEDS ORDERED: LEVO750 PO (17:15)
== END 2019-05-28 05:43 | disposition home or self-care (01) ==
LOC: ER 21:42 → EOR 21:43
PROVIDERS: ADMIT Emergency Medicine
DX: F33.1 Major depressive disorder, recurrent, moderate (principal); N30.90 Cystitis, unspecified without hematuria; E11.9 Type 2 diabetes mellitus without complications; F17.200 Nicotine dependence, unspecified, uncomplicated; Z88.0 Allergy status to penicillin; Z79.899 Other long term (current) drug therapy
CPT/HCPCS: 80053; 81001; 81025; 84443; 85025; 87086; 93005; 93010; 99285-25; G0378; G0480; Q3014

== ENCOUNTER 2019-06-02 22:57 | Observation (INO) | payer OTHER ==
[~2019-06-02] VITALS: Ht 167.6 cm; Wt 161.9 kg
[2019-06-03 00:50] LABS: Source, Urine Voided
[2019-06-03 00:58] LABS: Bilirubin, Urine Neg (Neg); Blood, Urine Neg (Neg); Glucose Qualitative, Urine Neg (Neg); Ketones, Urine Neg (Neg); Leukocyte Esterase, Urine 2+ (Neg); Nitrite, Urine Neg (Neg); Protein, Urine Neg (Neg); Urobilinogen, Urine NORM (Normal)
[2019-06-03 01:04] LABS: Appearance, Urine Clear (Clear); Color, Urine Yellow (P-Yellow)
[2019-06-03 01:05] LABS: Bacteria Few /hpf; Red Blood Cells, Urine Not Seen /hpf (0-2); Squamous Epithelial Cells Few /hpf (Few)
[2019-06-03 01:11] LABS: U Amphetamine Screen Not Detected; U Barbituate Screen Not Detected; U Benzodiazapine Screen DETECTED; U Buprenorphine Screen Not Detected; U Cannabinoids Screen Not Detected; U Cocaine Screen Not Detected; U Methadone Screen Not Detected; U Methamphetamine Screen Not Detected; U Opiates Screen Not Detected; U Oxycodone Screen Not Detected; U Phencyclidine Screen Not Detected; U Propoxyphene Screen Not Detected
[2019-09-15] MEDS ORDERED: MELA3 PO (17:13)
[2019-09-15] MEDS ORDERED: Florastor250 MG PO (17:15)
[2019-09-15] MEDS ORDERED: LEVO750 PO (17:15)
== END 2019-06-03 15:21 | disposition home or self-care (01) ==
LOC: ER 22:57 → EOR 22:58
PROVIDERS: ADMIT Emergency Medicine
DX: F32.9 Major depressive disorder, single episode, unspecified (principal); F43.25 Adjustment disorder with mixed disturbance of emotions and conduct; F84.8 Other pervasive developmental disorders; E11.9 Type 2 diabetes mellitus without complications; F17.210 Nicotine dependence, cigarettes, uncomplicated; Z88.0 Allergy status to penicillin; Z79.899 Other long term (current) drug therapy
CPT/HCPCS: 81001; 87086; 99285; G0378; Q3014

== ENCOUNTER 2019-06-04 23:26 | Emergency (ER) | payer OTHER ==
[~2019-06-04] VITALS: Ht 167.6 cm; Wt 170.1 kg
[2019-09-15] MEDS ORDERED: MELA3 PO (17:13)
[2019-09-15] MEDS ORDERED: LEVO750 PO (17:15)
[2019-09-15] MEDS ORDERED: Florastor250 MG PO (17:15)
== END 2019-06-05 00:30 | disposition home or self-care (01) ==
LOC: ER 23:26
DX: S90.32XA Contusion of left foot, initial encounter (principal); X58.XXXA Exposure to other specified factors, initial encounter; F32.9 Major depressive disorder, single episode, unspecified; E11.9 Type 2 diabetes mellitus without complications; F17.210 Nicotine dependence, cigarettes, uncomplicated
CPT/HCPCS: 73630; 99283-25

== ENCOUNTER 2019-06-06 01:03 | Emergency (ER) | payer OTHER ==
[~2019-06-06] VITALS: Ht 167.6 cm; Wt 170.1 kg
[2019-09-15] MEDS ORDERED: MELA3 PO (17:13)
[2019-09-15] MEDS ORDERED: Florastor250 MG PO (17:15)
[2019-09-15] MEDS ORDERED: LEVO750 PO (17:15)
== END 2019-06-06 01:21 | disposition home or self-care (01) ==
LOC: ER 01:03
DX: F32.9 Major depressive disorder, single episode, unspecified (principal); Z88.0 Allergy status to penicillin; Z79.899 Other long term (current) drug therapy; E11.9 Type 2 diabetes mellitus without complications; F17.210 Nicotine dependence, cigarettes, uncomplicated
CPT/HCPCS: 99283

== ENCOUNTER 2019-06-19 15:47 | Emergency (ER) | payer OTHER ==
[~2019-06-19] VITALS: Ht 162.6 cm; Wt 156.5 kg
[2019-06-19 16:12] LABS: Source, Urine Clean Catch
[2019-06-19 16:15] LABS: BASOPHILS ABSOLUTE AUTO 0.04 K/mm3 (0.00-0.23); BASOPHILS PERCENT AUTO 0 % (0-2); EOSINOPHILS PERCENT AUTO 6 % (0-6); Hematocrit 42.7 % (33.0-51.0); Hemoglobin 13.7 g/dL (11.5-16.0); IMMATURE GRAN ABSOLUTE AUTO 0.04 K/mm3 (0.00-0.10); IMMATURE GRAN PERCENT AUTO 0 % (0-1); LYMPHOCYTES ABSOLUTE AUTO 2.69 K/mm3 (0.84-5.20); LYMPHOCYTES PERCENT AUTO 26 % (21-46); MONOCYTES ABSOLUTE AUTO 0.84 K/mm3 (0.16-1.47); MONOCYTES PERCENT AUTO 8 % (4-13); Mean Corpuscular HGB 31.6 pg (26.0-34.0); Mean Corpuscular HGB Conc 32.1 g/dL (31.5-36.5); Mean Corpuscular Volume 98 fL (80-100); Mean Platelet Volume 10.1 fL (9.1-12.4); NEUTROPHILS PERCENT AUTO 60 % (41-73); Platelet Count 202 K/mm3 (150-400); RDW Coefficient Variation 13.3 % (11.7-14.2); RDW Standard Deviation 48.8 fL (35.1-46.3); Red Blood Cell Count 4.34 M/mm3 (3.80-5.20); White Blood Cell Count 10.51 K/mm3 (4.00-11.30)
[2019-06-19 16:28] LABS: Albumin, Blood 3.4 g/dL (3.4-5.0); Albumin/Globulin Ratio 0.9 (0.8-1.8); Bilirubin, Total 0.3 mg/dL (0.1-1.0); Calcium, Blood 9.1 mg/dL (8.5-10.1); Creatinine, Blood 1.63 mg/dL (0.40-1.00); Globulin, Blood 3.9 g/dL (2.2-4.0); Total Protein, Blood 7.3 g/dL (6.4-8.2)
[2019-06-19 16:33] LABS: Bilirubin, Urine Neg (Neg); Blood, Urine Neg (Neg); Glucose Qualitative, Urine Neg (Neg); Ketones, Urine Neg (Neg); Leukocyte Esterase, Urine 2+ (Neg); Nitrite, Urine Neg (Neg); Protein, Urine Neg (Neg); Specific Gravity, Urine 1.015 (1.003-1.022); Urobilinogen, Urine NORM (Normal)
[2019-06-19 16:46] LABS: Color, Urine Pale Yellow (P-Yellow)
[2019-06-19 16:47] LABS: Appearance, Urine Hazy (Clear)
[2019-06-19 16:48] LABS: Bacteria Many /hpf; Red Blood Cells, Urine 0-2 /hpf (0-2); Squamous Epithelial Cells Mod /hpf (Few)
[2019-06-19] MEDS ORDERED: CEPH500 PO (17:00)
[2019-09-15] MEDS ORDERED: MELA3 PO (17:13)
[2019-09-15] MEDS ORDERED: LEVO750 PO (17:15)
[2019-09-15] MEDS ORDERED: Florastor250 MG PO (17:15)
== END 2019-06-19 17:15 | disposition home or self-care (01) ==
LOC: ER 15:47
PROVIDERS: Emergency Medicine
DX: N39.0 Urinary tract infection, site not specified (principal); Z88.0 Allergy status to penicillin; Z79.899 Other long term (current) drug therapy; F32.9 Major depressive disorder, single episode, unspecified; E11.9 Type 2 diabetes mellitus without complications; F17.210 Nicotine dependence, cigarettes, uncomplicated
CPT/HCPCS: 36415; 80053; 81001; 85025; 87077; 87086; 87186; 99284

== ENCOUNTER 2019-06-27 17:24 | Emergency (ER) | payer OTHER ==
[~2019-06-27] VITALS: Ht 167.6 cm; Wt 155.1 kg
[2019-06-27 17:51] LABS: Source, Urine Clean Catch
[2019-06-27 18:17] LABS: Bilirubin, Urine Neg (Neg); Blood, Urine Neg (Neg); Glucose Qualitative, Urine Neg (Neg); Ketones, Urine Neg (Neg); Leukocyte Esterase, Urine 3+ (Neg); Nitrite, Urine Neg (Neg); Protein, Urine Neg (Neg); Urobilinogen, Urine NORM (Normal)
[2019-06-27] MEDS ORDERED: Chlor-Trimeton4 MG PO (18:23)
[2019-06-27 18:40] LABS: Appearance, Urine Hazy (Clear); Color, Urine Pale Yellow (P-Yellow)
[2019-06-27 18:41] LABS: Bacteria Many /hpf; Red Blood Cells, Urine 0-2 /hpf (0-2); Squamous Epithelial Cells Few /hpf (Few); White Blood Cells, Urine 50-100 /hpf (0-5)
[2019-06-27] MEDS ORDERED: LEVFLO500 PO (18:43)
[2019-09-15] MEDS ORDERED: MELA3 PO (17:13)
[2019-09-15] MEDS ORDERED: LEVO750 PO (17:15)
[2019-09-15] MEDS ORDERED: Florastor250 MG PO (17:15)
== END 2019-06-27 19:10 | disposition home or self-care (01) ==
LOC: ER 17:24
PROVIDERS: Physician Assistant
DX: N39.0 Urinary tract infection, site not specified (principal); H92.01 Otalgia, right ear; Z88.0 Allergy status to penicillin; Z79.899 Other long term (current) drug therapy; F32.9 Major depressive disorder, single episode, unspecified; E11.9 Type 2 diabetes mellitus without complications; F17.210 Nicotine dependence, cigarettes, uncomplicated
CPT/HCPCS: 81001; 87077; 87086; 87186; 99283

== ENCOUNTER 2019-06-29 03:31 | Emergency (ER) | payer OTHER ==
[~2019-06-29] VITALS: Ht 167.6 cm; Wt 155.1 kg
[~2019-06-29 03:31] MED LIST changes: +Chlor-Trimeton4 MG PO; +LEVFLO500 PO
[2019-06-29 04:45] LABS: Albumin, Blood 3.3 g/dL (3.4-5.0); Albumin/Globulin Ratio 0.8 (0.8-1.8); Bilirubin, Total 0.2 mg/dL (0.1-1.0); Bun/Creatinine Ratio 17.9 (12.0-20.0); Calcium, Blood 8.8 mg/dL (8.5-10.1); Creatinine, Blood 1.79 mg/dL (0.40-1.00); Potassium, Blood 3.6 mmol/L (3.5-5.5); Total Protein, Blood 7.3 g/dL (6.4-8.2)
[2019-09-15] MEDS ORDERED: MELA3 PO (17:13)
[2019-09-15] MEDS ORDERED: Florastor250 MG PO (17:15)
[2019-09-15] MEDS ORDERED: LEVO750 PO (17:15)
== END 2019-06-29 05:04 | disposition home or self-care (01) ==
LOC: ER 03:31
PROVIDERS: Emergency Medicine
DX: K76.0 Fatty (change of) liver, not elsewhere classified (principal); N39.0 Urinary tract infection, site not specified; Z88.0 Allergy status to penicillin; Z79.899 Other long term (current) drug therapy; F32.9 Major depressive disorder, single episode, unspecified; E11.9 Type 2 diabetes mellitus without complications; F17.210 Nicotine dependence, cigarettes, uncomplicated
CPT/HCPCS: 36415; 80053; 96372; 99285; J1885; J3010

== ENCOUNTER 2019-07-04 09:22 | Emergency (ER) | payer OTHER ==
[~2019-07-04] VITALS: Ht 167.6 cm; Wt 147.4 kg
[2019-07-04 10:09] LABS: BASOPHILS ABSOLUTE AUTO 0.04 K/mm3 (0.00-0.23); BASOPHILS PERCENT AUTO 0 % (0-2); EOSINOPHILS ABSOLUTE AUTO 0.38 K/mm3 (0.00-0.68); EOSINOPHILS PERCENT AUTO 3 % (0-6); Hematocrit 40.3 % (33.0-51.0); Hemoglobin 12.9 g/dL (11.5-16.0); IMMATURE GRAN ABSOLUTE AUTO 0.14 K/mm3 (0.00-0.10); IMMATURE GRAN PERCENT AUTO 1 % (0-1); LYMPHOCYTES ABSOLUTE AUTO 4.66 K/mm3 (0.84-5.20); LYMPHOCYTES PERCENT AUTO 30 % (21-46); MONOCYTES ABSOLUTE AUTO 1.34 K/mm3 (0.16-1.47); MONOCYTES PERCENT AUTO 9 % (4-13); Mean Corpuscular HGB 31.2 pg (26.0-34.0); Mean Corpuscular Volume 97 fL (80-100); Mean Platelet Volume 9.9 fL (9.1-12.4); NEUTROPHILS ABSOLUTE AUTO 8.77 K/mm3 (1.96-9.15); NEUTROPHILS PERCENT AUTO 57 % (41-73); Platelet Count 198 K/mm3 (150-400); RDW Coefficient Variation 13.6 % (11.7-14.2); RDW Standard Deviation 49.1 fL (35.1-46.3); Red Blood Cell Count 4.14 M/mm3 (3.80-5.20); White Blood Cell Count 15.33 K/mm3 (4.00-11.30)
[2019-07-04 10:30] LABS: Albumin, Blood 3.2 g/dL (3.4-5.0); Albumin/Globulin Ratio 0.7 (0.8-1.8); Bilirubin, Total 0.3 mg/dL (0.1-1.0); Bun/Creatinine Ratio 25.7 (12.0-20.0); Calcium, Blood 9.1 mg/dL (8.5-10.1); Creatinine, Blood 2.02 mg/dL (0.40-1.00); Globulin, Blood 4.4 g/dL (2.2-4.0); Potassium, Blood 3.9 mmol/L (3.5-5.5); Total Protein, Blood 7.6 g/dL (6.4-8.2)
[2019-07-04] MEDS ORDERED: ALBU90OI INH (11:08)
[2019-07-04] MEDS ORDERED: Prednisone20 MG PO (11:19)
[2019-07-04] MEDS ORDERED: QUET100 PO (11:49)
[2019-07-04] MEDS ORDERED: Venlafaxine HC225 MG PO (11:51)
[2019-09-15] MEDS ORDERED: MELA3 PO (17:13)
[2019-09-15] MEDS ORDERED: Florastor250 MG PO (17:15)
[2019-09-15] MEDS ORDERED: LEVO750 PO (17:15)
== END 2019-07-04 12:11 | disposition home or self-care (01) ==
LOC: ER 09:22
PROVIDERS: Physician Assistant
DX: J44.1 Chronic obstructive pulmonary disease with (acute) exacerbation (principal); Z88.0 Allergy status to penicillin; Z79.899 Other long term (current) drug therapy; F32.9 Major depressive disorder, single episode, unspecified; E11.9 Type 2 diabetes mellitus without complications; F17.210 Nicotine dependence, cigarettes, uncomplicated
CPT/HCPCS: 36415; 71046; 80053; 83880; 85025; 93005; 93010; 99284-25; J7512

== ENCOUNTER 2019-07-09 19:00 | Emergency (ER) | payer OTHER ==
[~2019-07-09] VITALS: Ht 170.2 cm; Wt 136.1 kg
[~2019-07-09 19:00] MED LIST changes: +ALBU90OI INH; +Prednisone20 MG PO; +QUET100 PO; +Venlafaxine HC225 MG PO
[2019-09-15] MEDS ORDERED: MELA3 PO (17:13)
[2019-09-15] MEDS ORDERED: LEVO750 PO (17:15)
[2019-09-15] MEDS ORDERED: Florastor250 MG PO (17:15)
== END 2019-07-09 20:39 | disposition home or self-care (01) ==
LOC: ER 19:00
DX: R60.0 Localized edema (principal); Z88.0 Allergy status to penicillin; Z79.899 Other long term (current) drug therapy; E11.9 Type 2 diabetes mellitus without complications; F32.9 Major depressive disorder, single episode, unspecified; F17.210 Nicotine dependence, cigarettes, uncomplicated
CPT/HCPCS: 73600; 99283-25

== ENCOUNTER 2019-07-18 00:48 | Emergency (ER) | payer OTHER ==
[~2019-07-18] VITALS: Ht 167.6 cm; Wt 154.2 kg
[2019-09-15] MEDS ORDERED: MELA3 PO (17:13)
[2019-09-15] MEDS ORDERED: Florastor250 MG PO (17:15)
[2019-09-15] MEDS ORDERED: LEVO750 PO (17:15)
== END 2019-07-18 01:18 | disposition home or self-care (01) ==
LOC: ER 00:48
DX: S80.02XA Contusion of left knee, initial encounter (principal); S80.01XA Contusion of right knee, initial encounter; W18.30XA Fall on same level, unspecified, initial encounter; F32.9 Major depressive disorder, single episode, unspecified; E11.9 Type 2 diabetes mellitus without complications; F17.210 Nicotine dependence, cigarettes, uncomplicated; F41.9 Anxiety disorder, unspecified; Z88.0 Allergy status to penicillin; Z79.899 Other long term (current) drug therapy; Z79.52 Long term (current) use of systemic steroids
CPT/HCPCS: 99283

== ENCOUNTER 2019-07-23 20:11 | Emergency (ER) | payer OTHER ==
[~2019-07-23] VITALS: Ht 167.6 cm; Wt 158.8 kg
[2019-09-15] MEDS ORDERED: MELA3 PO (17:13)
[2019-09-15] MEDS ORDERED: Florastor250 MG PO (17:15)
[2019-09-15] MEDS ORDERED: LEVO750 PO (17:15)
== END 2019-07-23 22:05 | disposition home or self-care (01) ==
LOC: ER 20:11
DX: S81.832A Puncture wound without foreign body, left lower leg, initial encounter (principal); E11.9 Type 2 diabetes mellitus without complications; F32.9 Major depressive disorder, single episode, unspecified; F17.210 Nicotine dependence, cigarettes, uncomplicated; Z86.73 Personal history of transient ischemic attack (TIA), and cerebral infarction without residual deficits; Z88.0 Allergy status to penicillin; Z79.899 Other long term (current) drug therapy; Y04.2XXA Assault by strike against or bumped into by another person, initial encounter
CPT/HCPCS: 99283

== ENCOUNTER 2019-07-27 19:17 | Emergency (ER) | payer OTHER ==
[~2019-07-27] VITALS: Ht 167.6 cm; Wt 158.3 kg
[2019-09-15] MEDS ORDERED: MELA3 PO (17:13)
[2019-09-15] MEDS ORDERED: LEVO750 PO (17:15)
[2019-09-15] MEDS ORDERED: Florastor250 MG PO (17:15)
== END 2019-07-27 21:56 | disposition home or self-care (01) ==
LOC: ER 19:17
DX: M79.605 Pain in left leg (principal); R55 Syncope and collapse; E79.0 Hyperuricemia without signs of inflammatory arthritis and tophaceous disease
CPT/HCPCS: 73590; 73630; 84550; 99283-25

== ENCOUNTER 2019-08-07 14:38 | Emergency (ER) | payer OTHER ==
[~2019-08-07] VITALS: Ht 167.6 cm; Wt 155.1 kg
[2019-09-15] MEDS ORDERED: MELA3 PO (17:13)
[2019-09-15] MEDS ORDERED: LEVO750 PO (17:15)
[2019-09-15] MEDS ORDERED: Florastor250 MG PO (17:15)
== END 2019-08-07 16:05 | disposition home or self-care (01) ==
LOC: ER 14:38
DX: S40.012A Contusion of left shoulder, initial encounter (principal); F32.9 Major depressive disorder, single episode, unspecified; R45.851 Suicidal ideations; Z88.0 Allergy status to penicillin; Z79.899 Other long term (current) drug therapy; E11.9 Type 2 diabetes mellitus without complications; F17.210 Nicotine dependence, cigarettes, uncomplicated; W18.30XA Fall on same level, unspecified, initial encounter
CPT/HCPCS: 73030; 99283-25

== ENCOUNTER 2019-08-09 02:50 | Emergency (ER) | payer OTHER ==
[~2019-08-09] VITALS: Ht 167.6 cm; Wt 155.1 kg
[2019-08-09] MEDS ORDERED: TOPI50 PO (03:12)
[2019-08-09] MEDS ORDERED: Bactrim Ds Tab1 EACH PO (07:58)
[2019-08-09] MEDS ORDERED: Keflex500 MG PO (07:58)
[2019-09-15] MEDS ORDERED: MELA3 PO (17:13)
[2019-09-15] MEDS ORDERED: Florastor250 MG PO (17:15)
[2019-09-15] MEDS ORDERED: LEVO750 PO (17:15)
== END 2019-08-09 04:26 | disposition left against medical advice (07) ==
LOC: ER 02:50
DX: M79.89 Other specified soft tissue disorders (principal); Z88.0 Allergy status to penicillin; Z79.899 Other long term (current) drug therapy; F32.9 Major depressive disorder, single episode, unspecified; E11.9 Type 2 diabetes mellitus without complications; F17.210 Nicotine dependence, cigarettes, uncomplicated; L03.116 Cellulitis of left lower limb; I89.0 Lymphedema, not elsewhere classified
CPT/HCPCS: 93971; 99283; 99283-25

== ENCOUNTER 2019-08-13 12:43 | Emergency (ER) | payer OTHER ==
[~2019-08-13] VITALS: Ht 167.6 cm; Wt 163.8 kg
[~2019-08-13 12:43] MED LIST changes: +Keflex500 MG PO
[2019-08-13] MEDS ORDERED: Monodox100 MG PO (15:31)
[2019-09-15] MEDS ORDERED: MELA3 PO (17:13)
[2019-09-15] MEDS ORDERED: LEVO750 PO (17:15)
[2019-09-15] MEDS ORDERED: Florastor250 MG PO (17:15)
== END 2019-08-13 15:36 | disposition home or self-care (01) ==
LOC: ER 12:43
DX: S80.01XA Contusion of right knee, initial encounter (principal); S80.822A Blister (nonthermal), left lower leg, initial encounter; L03.116 Cellulitis of left lower limb; Z88.0 Allergy status to penicillin; Z79.899 Other long term (current) drug therapy; Z87.442 Personal history of urinary calculi; E11.9 Type 2 diabetes mellitus without complications; F32.9 Major depressive disorder, single episode, unspecified; F17.210 Nicotine dependence, cigarettes, uncomplicated
CPT/HCPCS: 73562-RT; 99283-25

== ENCOUNTER 2019-08-22 21:03 | Emergency (ER) | payer OTHER ==
[~2019-08-22] VITALS: Ht 167.6 cm; Wt 162.4 kg
[~2019-08-22 21:03] MED LIST changes: +Monodox100 MG PO
[2019-08-22] MEDS ORDERED: TRAM50 PO (23:32)
[2019-09-15] MEDS ORDERED: MELA3 PO (17:13)
[2019-09-15] MEDS ORDERED: LEVO750 PO (17:15)
[2019-09-15] MEDS ORDERED: Florastor250 MG PO (17:15)
== END 2019-08-23 00:38 | disposition home or self-care (01) ==
LOC: ER 21:03
DX: M23.91 Unspecified internal derangement of right knee (principal); M79.81 Nontraumatic hematoma of soft tissue; Z88.0 Allergy status to penicillin; Z79.899 Other long term (current) drug therapy; F32.9 Major depressive disorder, single episode, unspecified; E11.9 Type 2 diabetes mellitus without complications; F17.210 Nicotine dependence, cigarettes, uncomplicated
CPT/HCPCS: 93971; 99284-25

== ENCOUNTER 2019-09-02 00:42 | Day surgery (SDC) | payer OTHER ==
[2019-09-02] MEDS ORDERED: Benedryl E12.5 MG/5 PO (14:18)
[2019-09-02] MEDS ORDERED: MIRALAX17 GM PO (14:20)
[2019-09-02] MEDS ORDERED: ACET325 PO (14:21)
[2019-09-02] MEDS ORDERED: INSULIN GLARGINE SC (14:24)
[2019-09-02] MEDS ORDERED: POTA10T PO (14:25)
[2019-09-02] MEDS ORDERED: Bumetanide2 MG PO (14:26)
[2019-09-15] MEDS ORDERED: MELA3 PO (17:13)
[2019-09-15] MEDS ORDERED: LEVO750 PO (17:15)
[2019-09-15] MEDS ORDERED: Florastor250 MG PO (17:15)
== END 2019-09-02 15:00 | disposition home or self-care (01) ==
LOC: ATC 00:42
DX: N39.0 Urinary tract infection, site not specified (principal); I12.9 Hypertensive chronic kidney disease with stage 1 through stage 4 chronic kidney disease, or unspecified chronic kidney disease; E11.22 Type 2 diabetes mellitus with diabetic chronic kidney disease; N18.4 Chronic kidney disease, stage 4 (severe); D63.1 Anemia in chronic kidney disease; N25.81 Secondary hyperparathyroidism of renal origin; E11.21 Type 2 diabetes mellitus with diabetic nephropathy; E55.9 Vitamin D deficiency, unspecified; Z79.899 Other long term (current) drug therapy; Z88.0 Allergy status to penicillin
CPT/HCPCS: 96365; J3370

== ENCOUNTER → 2019-09-14 | Outpatient (CLI) | payer OTHER ==
[~2019-09-14] MED LIST changes: +Benedryl E12.5 MG/5 PO; +Bumetanide2 MG PO; +Florastor250 MG PO; +INSULIN GLARGINE SC; +LEVO750 PO; +MIRALAX17 GM PO; +POTA10T PO
== END | disposition home or self-care (01) ==
LOC: LAB SHORT 09:13 → LAB 09:13
DX: L97.209 Non-pressure chronic ulcer of unspecified calf with unspecified severity (principal)
CPT/HCPCS: 87070; 87077; 87185; 87205

== ENCOUNTER 2019-09-17 19:49 | Emergency (ER) | payer OTHER ==
[~2019-09-17] VITALS: Ht 167.6 cm; Wt 154.2 kg
== END 2019-09-17 20:43 | disposition home or self-care (01) ==
LOC: ER 19:49
DX: F41.9 Anxiety disorder, unspecified (principal); F32.9 Major depressive disorder, single episode, unspecified; E11.9 Type 2 diabetes mellitus without complications; Z88.0 Allergy status to penicillin; Z79.899 Other long term (current) drug therapy
CPT/HCPCS: 99284

== ENCOUNTER 2019-09-26 14:03 | Emergency (ER) | payer OTHER ==
[~2019-09-26] VITALS: Ht 165.1 cm; Wt 149.7 kg
[2019-09-26 14:31] LABS: Hematocrit 39.8 % (33.0-51.0); Hemoglobin 12.6 g/dL (11.5-16.0); Mean Corpuscular HGB Conc 31.7 g/dL (31.5-36.5); Mean Corpuscular Volume 98 fL (80-100); Mean Platelet Volume 9.3 fL (9.1-12.4); Platelet Count 282 K/mm3 (150-400); RDW Coefficient Variation 13.8 % (11.7-14.2); RDW Standard Deviation 50.4 fL (35.1-46.3); Red Blood Cell Count 4.07 M/mm3 (3.80-5.20); White Blood Cell Count 11.45 K/mm3 (4.00-11.30)
[2019-09-26 14:49] LABS: Anion Gap 7 mmol/L (6-16); Blood Urea Nitrogen 62 mg/dL (8-24); Bun/Creatinine Ratio 35.8 (12.0-20.0); CO2, Blood 25 mmol/L (21-32); Calcium, Blood 8.9 mg/dL (8.5-10.1); Chloride, Blood 105 mmol/L (98-108); Creatinine, Blood 1.73 mg/dL (0.40-1.00); Glomerular Filtration Rate 32 (60-); Glucose, Blood 237 mg/dL (70-99); Potassium, Blood 4.3 mmol/L (3.5-5.5); Sodium, Blood 137 mmol/L (136-145); Troponin I <0.015 ng/mL (0.000-0.040)
== END 2019-09-26 15:25 | disposition home or self-care (01) ==
LOC: ER 14:03
PROVIDERS: Emergency Medicine
DX: R07.2 Precordial pain (principal); I12.9 Hypertensive chronic kidney disease with stage 1 through stage 4 chronic kidney disease, or unspecified chronic kidney disease; E11.22 Type 2 diabetes mellitus with diabetic chronic kidney disease; N18.4 Chronic kidney disease, stage 4 (severe); F32.9 Major depressive disorder, single episode, unspecified; E66.9 Obesity, unspecified; F17.210 Nicotine dependence, cigarettes, uncomplicated
CPT/HCPCS: 71045; 80048; 84484; 85027; 93005; 93010; 99285-25

== ENCOUNTER 2019-09-28 03:34 | Emergency (ER) | payer OTHER ==
[~2019-09-28] VITALS: Ht 167.6 cm; Wt 154.2 kg
== END 2019-09-28 03:51 | disposition home or self-care (01) ==
LOC: ER 03:34
DX: G89.29 Other chronic pain (principal); R10.9 Unspecified abdominal pain; Z88.0 Allergy status to penicillin; Z79.899 Other long term (current) drug therapy; F32.9 Major depressive disorder, single episode, unspecified; E11.9 Type 2 diabetes mellitus without complications; F17.210 Nicotine dependence, cigarettes, uncomplicated
CPT/HCPCS: 99283

== ENCOUNTER 2019-10-15 05:57 | Emergency (ER) | payer OTHER ==
[~2019-10-15] VITALS: Ht 167.6 cm; Wt 140.6 kg
[~2019-10-15 05:57] MED LIST changes: -INSULIN GLARGINE SC
[2019-10-16] MEDS ORDERED: LIDO700A20 TOP (23:48)
[2019-10-16] MEDS ORDERED: IBUP600 PO (23:48)
== END 2019-10-15 07:13 | disposition home or self-care (01) ==
LOC: ER 05:57
DX: S63.602A Unspecified sprain of left thumb, initial encounter (principal); I12.9 Hypertensive chronic kidney disease with stage 1 through stage 4 chronic kidney disease, or unspecified chronic kidney disease; E11.22 Type 2 diabetes mellitus with diabetic chronic kidney disease; N18.4 Chronic kidney disease, stage 4 (severe); F32.9 Major depressive disorder, single episode, unspecified; E66.01 Morbid (severe) obesity due to excess calories; Z68.43 Body mass index [BMI] 50.0-59.9, adult; Z87.440 Personal history of urinary (tract) infections; Z88.0 Allergy status to penicillin; W18.39XA Other fall on same level, initial encounter
CPT/HCPCS: 29125; 73120; 99283-25; A9270-GY

== ENCOUNTER 2019-10-16 23:15 | Emergency (ER) | payer OTHER ==
[~2019-10-16] VITALS: Ht 167.6 cm; Wt 147.4 kg
[2019-10-16] MEDS ORDERED: LIDO700A20 TOP (23:48)
[2019-10-16] MEDS ORDERED: IBUP600 PO (23:48)
== END 2019-10-17 00:20 | disposition home or self-care (01) ==
LOC: ER 23:15
DX: S80.01XA Contusion of right knee, initial encounter (principal); F32.9 Major depressive disorder, single episode, unspecified; E11.9 Type 2 diabetes mellitus without complications; F17.210 Nicotine dependence, cigarettes, uncomplicated; Z79.899 Other long term (current) drug therapy; W18.39XA Other fall on same level, initial encounter
CPT/HCPCS: 73562-RT; 99283-25; A9270-GY

== ENCOUNTER → 2019-10-21 | Outpatient (CLI) | payer OTHER ==
[~2019-10-21] MED LIST changes: +LIDO700A20 TOP; +Nystatin15 GM TOP
== END | disposition home or self-care (01) ==
LOC: LAB SHORT 16:33 → LAB 16:33
DX: B37.2 Candidiasis of skin and nail (principal)
CPT/HCPCS: 87070; 87147; 87205

== ENCOUNTER 2019-10-22 17:21 | Emergency (ER) | payer OTHER ==
[~2019-10-22] VITALS: Ht 167.6 cm; Wt 158.8 kg
[~2019-10-22 17:21] MED LIST changes: -Nystatin15 GM TOP
[2019-10-22 17:51] LABS: BASOPHILS ABSOLUTE AUTO 0.04 K/mm3 (0.00-0.23); BASOPHILS PERCENT AUTO 0 % (0-2); EOSINOPHILS ABSOLUTE AUTO 0.98 K/mm3 (0.00-0.68); EOSINOPHILS PERCENT AUTO 5 % (0-6); Hematocrit 38.9 % (33.0-51.0); Hemoglobin 12.1 g/dL (11.5-16.0); IMMATURE GRAN ABSOLUTE AUTO 0.17 K/mm3 (0.00-0.10); IMMATURE GRAN PERCENT AUTO 1 % (0-1); LYMPHOCYTES ABSOLUTE AUTO 2.94 K/mm3 (0.84-5.20); LYMPHOCYTES PERCENT AUTO 14 % (21-46); MONOCYTES ABSOLUTE AUTO 1.72 K/mm3 (0.16-1.47); MONOCYTES PERCENT AUTO 8 % (4-13); Mean Corpuscular HGB 30.3 pg (26.0-34.0); Mean Corpuscular HGB Conc 31.1 g/dL (31.5-36.5); Mean Corpuscular Volume 98 fL (80-100); Mean Platelet Volume 9.7 fL (9.1-12.4); NEUTROPHILS ABSOLUTE AUTO 14.88 K/mm3 (1.96-9.15); NEUTROPHILS PERCENT AUTO 72 % (41-73); Platelet Count 290 K/mm3 (150-400); RDW Coefficient Variation 13.5 % (11.7-14.2); RDW Standard Deviation 49.1 fL (35.1-46.3); Red Blood Cell Count 3.99 M/mm3 (3.80-5.20); White Blood Cell Count 20.73 K/mm3 (4.00-11.30)
[2019-10-22 18:13] LABS: Alanine Aminotransfer (ALT/SGP 14 U/L (12-78); Albumin/Globulin Ratio 0.7 (0.8-1.8); Alk Phos 83 U/L (50-136); Anion Gap 6 mmol/L (6-16); Aspartate Aminotrans (AST/SGOT 9 U/L (12-37); Bilirubin, Total 0.3 mg/dL (0.1-1.0); Blood Urea Nitrogen 50 mg/dL (8-24); CO2, Blood 25 mmol/L (21-32); Calcium, Blood 8.9 mg/dL (8.5-10.1); Chloride, Blood 105 mmol/L (98-108); Ethanol (Alcohol), Blood, Med <3 mg/dL; Globulin, Blood 4.5 g/dL (2.2-4.0); Glomerular Filtration Rate 27 (60-); Glucose, Blood 139 mg/dL (70-99); Sodium, Blood 136 mmol/L (136-145); Thyroxine (T4) 6.1 ug/dL (4.8-13.9); Total Protein, Blood 7.5 g/dL (6.4-8.2)
[2019-10-22 18:18] LABS: Acetaminophen, Random 10.7 ug/mL (10.0-30.0)
[2019-10-22] MEDS ORDERED: GABA300 PO (19:14)
[2019-10-22] MEDS ORDERED: Nystatin15 GM TOP (19:21)
== END 2019-10-22 19:44 | disposition home or self-care (01) ==
LOC: ER 17:21
PROVIDERS: Emergency Medicine
DX: B37.2 Candidiasis of skin and nail (principal); R45.851 Suicidal ideations; E11.9 Type 2 diabetes mellitus without complications; F32.9 Major depressive disorder, single episode, unspecified; F17.210 Nicotine dependence, cigarettes, uncomplicated; Z88.0 Allergy status to penicillin; Z79.899 Other long term (current) drug therapy
CPT/HCPCS: 36415; 80053; 84436; 84443; 85025; 99284; G0480

== ENCOUNTER 2019-10-26 19:59 | Inpatient (IN) | payer OTHER ==
[~2019-10-26] VITALS: Ht 167.6 cm; Wt 161.0 kg
[~2019-10-26 19:59] MED LIST changes: +Nystatin15 GM TOP
[2019-10-26 20:38] LABS: BASOPHILS ABSOLUTE AUTO 0.05 K/mm3 (0.00-0.23); BASOPHILS PERCENT AUTO 0 % (0-2); EOSINOPHILS ABSOLUTE AUTO 0.33 K/mm3 (0.00-0.68); EOSINOPHILS PERCENT AUTO 1 % (0-6); Hematocrit 34.9 % (33.0-51.0); IMMATURE GRAN ABSOLUTE AUTO 0.32 K/mm3 (0.00-0.10); IMMATURE GRAN PERCENT AUTO 1 % (0-1); LYMPHOCYTES ABSOLUTE AUTO 2.14 K/mm3 (0.84-5.20); LYMPHOCYTES PERCENT AUTO 8 % (21-46); MONOCYTES ABSOLUTE AUTO 1.26 K/mm3 (0.16-1.47); MONOCYTES PERCENT AUTO 5 % (4-13); Mean Corpuscular HGB 30.6 pg (26.0-34.0); Mean Corpuscular HGB Conc 31.5 g/dL (31.5-36.5); Mean Corpuscular Volume 97 fL (80-100); NEUTROPHILS ABSOLUTE AUTO 22.05 K/mm3 (1.96-9.15); NEUTROPHILS PERCENT AUTO 84 % (41-73); NRBC ABSOLUTE 0.02 K/mm3 (0.00-0.02); NRBC Auto 0.1 /100 WBC (0.0-0.2); Platelet Count 289 K/mm3 (150-400); RDW Coefficient Variation 14.5 % (11.7-14.2); RDW Standard Deviation 52.1 fL (35.1-46.3); Red Blood Cell Count 3.59 M/mm3 (3.80-5.20); White Blood Cell Count 26.15 K/mm3 (4.00-11.30)
[2019-10-26 21:00] LABS: Source, Urine Clean Catch
[2019-10-26 21:03] LABS: Bilirubin, Urine Neg (Neg); Blood, Urine 4+ (Neg); Glucose Qualitative, Urine Neg (Neg); Ketones, Urine Neg (Neg); Leukocyte Esterase, Urine 3+ (Neg); Nitrite, Urine Pos (Neg); Protein, Urine 2+ (Neg); Specific Gravity, Urine 1.015 (1.003-1.022); Urobilinogen, Urine NORM (Normal)
[2019-10-26 21:04] LABS: Appearance, Urine Cloudy (Clear); Color, Urine Yellow (P-Yellow)
[2019-10-26 21:07] LABS: Albumin, Blood 2.3 g/dL (3.4-5.0); Albumin/Globulin Ratio 0.5 (0.8-1.8); Bilirubin, Total 0.3 mg/dL (0.1-1.0); Bun/Creatinine Ratio 18.2 (12.0-20.0); Calcium, Blood 8.4 mg/dL (8.5-10.1); Creatinine, Blood 4.39 mg/dL (0.40-1.00); Potassium, Blood 4.6 mmol/L (3.5-5.5); Total Protein, Blood 7.3 g/dL (6.4-8.2)
[2019-10-26 21:08] LABS: Bacteria Many /hpf; Mucus Light (0-Heavy); Squamous Epithelial Cells Mod /hpf (Few); White Blood Cells, Urine 25-50 /hpf (0-5)
[2019-10-27 04:33] LABS: Hematocrit 33.1 % (33.0-51.0); Hemoglobin 10.3 g/dL (11.5-16.0); Mean Corpuscular HGB Conc 31.1 g/dL (31.5-36.5); Mean Corpuscular Volume 97 fL (80-100); Mean Platelet Volume 10.2 fL (9.1-12.4); Platelet Count 236 K/mm3 (150-400); RDW Coefficient Variation 14.3 % (11.7-14.2); RDW Standard Deviation 50.4 fL (35.1-46.3); Red Blood Cell Count 3.43 M/mm3 (3.80-5.20); White Blood Cell Count 18.84 K/mm3 (4.00-11.30)
[2019-10-27 04:51] LABS: Albumin/Globulin Ratio 0.5 (0.8-1.8); Bilirubin, Total 0.2 mg/dL (0.1-1.0); Bun/Creatinine Ratio 17.9 (12.0-20.0); Calcium, Blood 8.1 mg/dL (8.5-10.1); Creatinine, Blood 4.18 mg/dL (0.40-1.00); Globulin, Blood 4.3 g/dL (2.2-4.0); Potassium, Blood 3.9 mmol/L (3.5-5.5); Total Protein, Blood 6.3 g/dL (6.4-8.2)
--- NOTE | 2019-10-27 06:26 | NUR ---
SHIFT SUMMARY PT ARRIVED APPROX 2300. DENIED PAIN. SBA Ina BELLO TO BA. BP 86/53. NOTIFIED DR SHAW AND HE ORDERED 500 NS BOLUS. BP AFTERWARDS 96/54. TELE WAS NSR @ 72 PER DIESEL INSTRUCTOR AT 0105. R LEG PINK WARM PICS TAKEN. SAYS SHE HAS A CAREGIVER(S) COME IN TO HELP HER. SHE DOSED OFF AND ON T/O NIGHT. CALL LIGHT IN REACH.
--- NOTE | 2019-10-27 15:19 | NUR ---
PT REPORTED SUICIDAL IDEATION TO [facility] MENTAL HEALTH REPRESENTITIVE KIMBERLEE. PT REPORTS BEING VERY DEPRESSED ABOUT CURRENT ILLNESS BUT HAS NO PLAN AND AGREES TO REMAIN SAFE WHILE SHE IS IN THE HOSPITAL. ALL ABOVE REPORTED TO MELISSA ALBERTS RN, DR. GRISSOM. SEE SUICIDE RISK ASSESSMENT.
--- NOTE | 2019-10-27 16:06 | NUR ---
PREEXISTING IV 20G LEFT ANTECUBITAL PATENT AND WNL.
--- NOTE | 2019-10-27 17:27 | NUR ---
SHIFT SUMMARY OX3; PSYCH HX. DM CBG'S AC. LIVES AT HOME WITH CAREGIVERS. LOW SUICIDE RISK. TEARFUL TODAY AND SUICIDE ASSESSMENT PLACED IN CHART. STOOL SPECIMEN SENT. SBA TO BATHROOM CONTINENT PULL UPS IN PLACE.
[2019-10-27 17:58] LABS: Campylobacter Sp Not Detected (NOT DETECT)
[2019-10-27 17:59] LABS: Adenovirus F 40/41 Not Detected (NOT DETECT); Astrovirus Not Detected (NOT DETECT); Cryptosporidium Not Detected (NOT DETECT); Cyclospora Cayetanensis Not Detected (NOT DETECT); E. Coli O157 Not Detected (NOT DETECT); Entamoeba Histolytica Not Detected (NOT DETECT); Enteroaggregative E. coli-EAEC Not Detected (NOT DETECT); Enteropathogenic E. coli-EPEC Not Detected (NOT DETECT); Enterotoxigenic E. coli-ETEC Not Detected (NOT DETECT); Giardia Lamblia Not Detected (NOT DETECT); Norovirus GI/GII Not Detected (NOT DETECT); Plesiomonas Shigelloides Not Detected (NOT DETECT); Rotavirus A Not Detected (NOT DETECT); Salmonella Sp Not Detected (NOT DETECT); Sapovirus Not Detected (NOT DETECT); Shiga Toxin-prod E. coli-STEC Not Detected (NOT DETECT); Shigella/Enteroin E. coli-EIEC Not Detected (NOT DETECT); Vibrio Cholerae Not Detected (NOT DETECT); Vibrio Sp Not Detected (NOT DETECT); Yersinia Enterocolitica Not Detected (NOT DETECT)
--- NOTE | 2019-10-27 18:20 | NUR ---
PT STATES "I'M HOPING TO GO HOME SOON I NEED TO GET HOME AND GET READY TO GO TO THE [facility] IS RIGHT ON THURSDAY NIGHT. I WOULDN'T MISS THAT!" APPEARS IN [employer]TER [employer]IR[employer] SITTING UP IN BED WATCHING T.V. AND TALKING WITH FAMILY ON PHONE.
--- NOTE | 2019-10-28 04:45 | NUR ---
SHIFT SUMMARY PT HAD NO ISSUES NOTED. PT SLEPT SOME THIS SHIFT. PT IS EAGER TO GO HOME TODAY. PT STATES SHE HAS PLANS SHE DOES NOT WANT TO MISS. PT CURRENTLY RESTING COMFORTABLY. CALL LIGHT IN REACH.
[2019-10-28 05:16] LABS: Hematocrit 33.7 % (33.0-51.0); Hemoglobin 10.9 g/dL (11.5-16.0)
[2019-10-28 05:41] LABS: Magnesium, Blood 2.1 mg/dL (1.6-2.4)
[2019-10-28 05:44] LABS: Albumin, Blood 2.3 g/dL (3.4-5.0); Anion Gap 6 mmol/L (6-16); Blood Urea Nitrogen 60 mg/dL (8-24); Bun/Creatinine Ratio 19.8 (12.0-20.0); CO2, Blood 27 mmol/L (21-32); Calcium, Blood 9.2 mg/dL (8.5-10.1); Chloride, Blood 109 mmol/L (98-108); Creatinine, Blood 3.03 mg/dL (0.40-1.00); Glomerular Filtration Rate 17 (60-); Glucose, Blood 141 mg/dL (70-99); Phosphorus, Blood 3.2 mg/dL (2.5-4.9); Sodium, Blood 142 mmol/L (136-145)
[2019-10-28] MEDS ORDERED: CEPH500 PO (11:00)
--- NOTE | 2019-10-28 11:31 | NUR ---
PATIENT REFUSED LUNCH BLOOD SUGAR SHE IS TO DISCHARGE AT 1200. NO ACUTE CONCERNS PER PATIENT SHE JUST WANTS TO GO HOME.
--- NOTE | 2019-10-28 11:32 | NUR ---
PATIENT IS PLEASANT, ALERT AND ORIENTED. NO ACUTE CONCERNS AT THIS TIME. PATIENT WAS GIVEN ALL DISCAHRGE INFORMATION INCLUDING HER FOLLOW UP APPOINTMENTS WHICH ARE ALL SCHEDULED. SHE HAS A TAXI RIDE HOME AT 1200 FROM CARE MANAGEMENT.
== END 2019-10-28 11:50 | disposition home or self-care (01) | DRG 872 ==
LOC: ER 19:59 → MEDS 21:56 → ENPENDDIS 10-28 11:10 → MEDS 10-28 11:50
PROVIDERS: Internal Medicine Nephrology; Physician Assistant; ADMIT Internal Medicine
DX: A41.9 Sepsis, unspecified organism (principal); N39.0 Urinary tract infection, site not specified; N18.4 Chronic kidney disease, stage 4 (severe); N17.9 Acute kidney failure, unspecified; Z68.43 Body mass index [BMI] 50.0-59.9, adult; L03.116 Cellulitis of left lower limb; N25.81 Secondary hyperparathyroidism of renal origin; R65.20 Severe sepsis without septic shock; I12.9 Hypertensive chronic kidney disease with stage 1 through stage 4 chronic kidney disease, or unspecified chronic kidney disease; E11.22 Type 2 diabetes mellitus with diabetic chronic kidney disease; F32.9 Major depressive disorder, single episode, unspecified; E66.01 Morbid (severe) obesity due to excess calories; F17.210 Nicotine dependence, cigarettes, uncomplicated; E88.09 Other disorders of plasma-protein metabolism, not elsewhere classified; D63.1 Anemia in chronic kidney disease; E86.9 Volume depletion, unspecified; F41.9 Anxiety disorder, unspecified; Z91.5 Personal history of self-harm; Z88.0 Allergy status to penicillin; E86.0 Dehydration; E11.65 Type 2 diabetes mellitus with hyperglycemia; G89.29 Other chronic pain; R21 Rash and other nonspecific skin eruption
CPT/HCPCS: 0097U; 36415; 36416; 76770; 80053; 80069; 81001; 82947; 83036; 83605; 83690; 83735; 85014; 85018; 85025; 85027; 87040; 87077; 87086; 87186; 93306; 93975; 96361; 96365; 99285-25; J0690; J1644; J1956; J7030; J7040; J7120; P9041

== ENCOUNTER 2019-11-01 15:12 | Emergency (ER) | payer OTHER ==
[~2019-11-01] VITALS: Ht 167.6 cm; Wt 154.2 kg
[2019-11-01 15:54] LABS: BASOPHILS ABSOLUTE AUTO 0.06 K/mm3 (0.00-0.23); BASOPHILS PERCENT AUTO 0 % (0-2); EOSINOPHILS ABSOLUTE AUTO 0.21 K/mm3 (0.00-0.68); EOSINOPHILS PERCENT AUTO 1 % (0-6); Hematocrit 36.4 % (33.0-51.0); Hemoglobin 11.4 g/dL (11.5-16.0); IMMATURE GRAN ABSOLUTE AUTO 0.75 K/mm3 (0.00-0.10); IMMATURE GRAN PERCENT AUTO 4 % (0-1); LYMPHOCYTES ABSOLUTE AUTO 2.19 K/mm3 (0.84-5.20); LYMPHOCYTES PERCENT AUTO 13 % (21-46); MONOCYTES ABSOLUTE AUTO 1.42 K/mm3 (0.16-1.47); MONOCYTES PERCENT AUTO 8 % (4-13); Mean Corpuscular HGB 30.3 pg (26.0-34.0); Mean Corpuscular HGB Conc 31.3 g/dL (31.5-36.5); Mean Corpuscular Volume 97 fL (80-100); Mean Platelet Volume 9.8 fL (9.1-12.4); NEUTROPHILS ABSOLUTE AUTO 12.32 K/mm3 (1.96-9.15); NEUTROPHILS PERCENT AUTO 73 % (41-73); Platelet Count 402 K/mm3 (150-400); RDW Standard Deviation 50.3 fL (35.1-46.3); Red Blood Cell Count 3.76 M/mm3 (3.80-5.20); White Blood Cell Count 16.95 K/mm3 (4.00-11.30)
[2019-11-01 16:05] LABS: Bun/Creatinine Ratio 19.2 (12.0-20.0); Creatinine, Blood 2.91 mg/dL (0.40-1.00); Potassium, Blood 4.1 mmol/L (3.5-5.5)
[2019-11-01] MEDS ORDERED: Cleocin HCl150 MG PO (16:21)
== END 2019-11-01 18:50 | disposition home or self-care (01) ==
LOC: ER 15:12
PROVIDERS: Physician Assistant
DX: L03.115 Cellulitis of right lower limb (principal); L03.116 Cellulitis of left lower limb; E11.622 Type 2 diabetes mellitus with other skin ulcer; L97.829 Non-pressure chronic ulcer of other part of left lower leg with unspecified severity; L97.819 Non-pressure chronic ulcer of other part of right lower leg with unspecified severity; F32.9 Major depressive disorder, single episode, unspecified; M10.9 Gout, unspecified; F17.210 Nicotine dependence, cigarettes, uncomplicated; Z88.0 Allergy status to penicillin; Z79.899 Other long term (current) drug therapy; Z79.4 Long term (current) use of insulin
CPT/HCPCS: 36415; 80048; 85025; 99283

== ENCOUNTER 2019-11-05 12:03 | Emergency (ER) | payer OTHER ==
[~2019-11-05] VITALS: Ht 167.6 cm; Wt 156.5 kg
[~2019-11-05 12:03] MED LIST changes: +Cleocin HCl150 MG PO
[2019-11-05 12:56] LABS: Albumin, Blood 2.1 g/dL (3.4-5.0); Albumin/Globulin Ratio 0.4 (0.8-1.8); Bilirubin, Total 0.2 mg/dL (0.1-1.0); Bun/Creatinine Ratio 24.5 (12.0-20.0); Creatinine, Blood 2.29 mg/dL (0.40-1.00); Globulin, Blood 4.7 g/dL (2.2-4.0); Potassium, Blood 3.5 mmol/L (3.5-5.5); Total Protein, Blood 6.8 g/dL (6.4-8.2)
[2019-11-05 13:01] LABS: BASOPHILS ABSOLUTE AUTO 0.05 K/mm3 (0.00-0.23); BASOPHILS PERCENT AUTO 1 % (0-2); EOSINOPHILS PERCENT AUTO 4 % (0-6); Hematocrit 39.1 % (33.0-51.0); Hemoglobin 12.1 g/dL (11.5-16.0); IMMATURE GRAN ABSOLUTE AUTO 0.06 K/mm3 (0.00-0.10); IMMATURE GRAN PERCENT AUTO 1 % (0-1); LYMPHOCYTES ABSOLUTE AUTO 2.57 K/mm3 (0.84-5.20); LYMPHOCYTES PERCENT AUTO 25 % (21-46); MONOCYTES PERCENT AUTO 7 % (4-13); Mean Corpuscular HGB 29.7 pg (26.0-34.0); Mean Corpuscular HGB Conc 30.9 g/dL (31.5-36.5); Mean Corpuscular Volume 96 fL (80-100); Mean Platelet Volume 9.8 fL (9.1-12.4); NEUTROPHILS ABSOLUTE AUTO 6.47 K/mm3 (1.96-9.15); NEUTROPHILS PERCENT AUTO 63 % (41-73); Platelet Count 360 K/mm3 (150-400); RDW Standard Deviation 49.4 fL (35.1-46.3); Red Blood Cell Count 4.08 M/mm3 (3.80-5.20); White Blood Cell Count 10.25 K/mm3 (4.00-11.30)
== END 2019-11-05 14:14 | disposition home or self-care (01) ==
LOC: ER 12:03
PROVIDERS: Physician Assistant
DX: E11.65 Type 2 diabetes mellitus with hyperglycemia (principal); E11.622 Type 2 diabetes mellitus with other skin ulcer; L97.829 Non-pressure chronic ulcer of other part of left lower leg with unspecified severity; L97.819 Non-pressure chronic ulcer of other part of right lower leg with unspecified severity; E11.42 Type 2 diabetes mellitus with diabetic polyneuropathy; L03.116 Cellulitis of left lower limb; L03.115 Cellulitis of right lower limb; F32.9 Major depressive disorder, single episode, unspecified; M10.9 Gout, unspecified; F17.210 Nicotine dependence, cigarettes, uncomplicated; Z88.0 Allergy status to penicillin; Z79.899 Other long term (current) drug therapy; Z79.4 Long term (current) use of insulin
CPT/HCPCS: 36415; 80053; 85025; 96374; 99283-25; J1885

== ENCOUNTER 2019-12-03 15:30 | Emergency (ER) | payer OTHER ==
[~2019-12-03] VITALS: Ht 167.6 cm; Wt 154.2 kg
[2019-12-03 16:22] LABS: BASOPHILS ABSOLUTE AUTO 0.03 K/mm3 (0.00-0.23); BASOPHILS PERCENT AUTO 0 % (0-2); EOSINOPHILS ABSOLUTE AUTO 0.73 K/mm3 (0.00-0.68); EOSINOPHILS PERCENT AUTO 7 % (0-6); Hematocrit 39.8 % (33.0-51.0); Hemoglobin 12.5 g/dL (11.5-16.0); IMMATURE GRAN ABSOLUTE AUTO 0.05 K/mm3 (0.00-0.10); IMMATURE GRAN PERCENT AUTO 0 % (0-1); LYMPHOCYTES ABSOLUTE AUTO 1.78 K/mm3 (0.84-5.20); LYMPHOCYTES PERCENT AUTO 16 % (21-46); MONOCYTES ABSOLUTE AUTO 0.97 K/mm3 (0.16-1.47); MONOCYTES PERCENT AUTO 9 % (4-13); Mean Corpuscular HGB 30.3 pg (26.0-34.0); Mean Corpuscular HGB Conc 31.4 g/dL (31.5-36.5); Mean Corpuscular Volume 96 fL (80-100); Mean Platelet Volume 9.9 fL (9.1-12.4); NEUTROPHILS ABSOLUTE AUTO 7.62 K/mm3 (1.96-9.15); NEUTROPHILS PERCENT AUTO 68 % (41-73); Platelet Count 228 K/mm3 (150-400); RDW Coefficient Variation 14.6 % (11.7-14.2); RDW Standard Deviation 51.6 fL (35.1-46.3); Red Blood Cell Count 4.13 M/mm3 (3.80-5.20); White Blood Cell Count 11.18 K/mm3 (4.00-11.30)
[2019-12-03 16:44] LABS: Alanine Aminotransfer (ALT/SGP 17 U/L (12-78); Albumin, Blood 3.3 g/dL (3.4-5.0); Albumin/Globulin Ratio 0.7 (0.8-1.8); Alk Phos 88 U/L (50-136); Anion Gap 9 mmol/L (6-16); Aspartate Aminotrans (AST/SGOT 14 U/L (12-37); Bilirubin, Total 0.4 mg/dL (0.1-1.0); Blood Urea Nitrogen 40 mg/dL (8-24); Bun/Creatinine Ratio 24.7 (12.0-20.0); CO2, Blood 28 mmol/L (21-32); Chloride, Blood 99 mmol/L (98-108); Creatinine, Blood 1.62 mg/dL (0.40-1.00); Glomerular Filtration Rate 35 (60-); Glucose, Blood 202 mg/dL (70-99); Potassium, Blood 3.9 mmol/L (3.5-5.5); Sodium, Blood 136 mmol/L (136-145); Total Protein, Blood 8.3 g/dL (6.4-8.2); Troponin I <0.015 ng/mL (0.000-0.040)
[2019-12-03] MEDS ORDERED: ALBU90OI INH (16:55)
[2019-12-03] MEDS ORDERED: AZIT250 PO (16:55)
== END 2019-12-03 17:36 | disposition home or self-care (01) ==
LOC: ER 15:30
PROVIDERS: Physician Assistant
DX: J45.901 Unspecified asthma with (acute) exacerbation (principal); I12.9 Hypertensive chronic kidney disease with stage 1 through stage 4 chronic kidney disease, or unspecified chronic kidney disease; E11.22 Type 2 diabetes mellitus with diabetic chronic kidney disease; N18.4 Chronic kidney disease, stage 4 (severe); F32.9 Major depressive disorder, single episode, unspecified; F17.210 Nicotine dependence, cigarettes, uncomplicated; Z79.899 Other long term (current) drug therapy; Z79.4 Long term (current) use of insulin
CPT/HCPCS: 36415; 71046; 80053; 83880; 84484; 85025; 93005; 93010; 94640; 99284-25

== ENCOUNTER 2019-12-10 10:13 | Emergency (ER) | payer OTHER ==
[~2019-12-10] VITALS: Ht 167.6 cm; Wt 151.9 kg
[~2019-12-10 10:13] MED LIST changes: +AZIT250 PO
== END 2019-12-10 11:02 | disposition home or self-care (01) ==
LOC: ER 10:13
DX: E11.65 Type 2 diabetes mellitus with hyperglycemia (principal); F32.9 Major depressive disorder, single episode, unspecified; Z88.0 Allergy status to penicillin; Z79.899 Other long term (current) drug therapy; Z79.4 Long term (current) use of insulin
CPT/HCPCS: 82947; 99285

== ENCOUNTER 2019-12-20 20:37 | Emergency (ER) | payer OTHER ==
[~2019-12-20] VITALS: Ht 167.6 cm; Wt 155.1 kg
== END 2019-12-20 22:17 | disposition home or self-care (01) ==
LOC: ER 20:37
DX: F32.9 Major depressive disorder, single episode, unspecified (principal); Z88.0 Allergy status to penicillin; Z79.899 Other long term (current) drug therapy; Z79.4 Long term (current) use of insulin; E11.9 Type 2 diabetes mellitus without complications; Z87.891 Personal history of nicotine dependence
CPT/HCPCS: 99284

== ENCOUNTER 2019-12-24 21:14 | Emergency (ER) | payer OTHER ==
[~2019-12-24] VITALS: Ht 167.6 cm; Wt 156.5 kg
[2019-12-24] MEDS ORDERED: Zovirax800 MG PO (23:54)
[2019-12-24] MEDS ORDERED: LIDO700A20 TOP (23:54)
== END 2019-12-25 00:34 | disposition home or self-care (01) ==
LOC: ER 21:14
DX: B02.9 Zoster without complications (principal); Z88.0 Allergy status to penicillin; Z79.899 Other long term (current) drug therapy; Z79.4 Long term (current) use of insulin; F32.9 Major depressive disorder, single episode, unspecified; E11.9 Type 2 diabetes mellitus without complications; Z87.891 Personal history of nicotine dependence
CPT/HCPCS: 99283

== ENCOUNTER 2020-04-06 20:50 | Emergency (ER) | payer OTHER ==
[~2020-04-06] VITALS: Ht 167.6 cm; Wt 154.2 kg
[~2020-04-06 20:50] MED LIST changes: +Zovirax800 MG PO
[2020-04-06 21:10] LABS: BASOPHILS ABSOLUTE AUTO 0.03 K/mm3 (0.00-0.23); BASOPHILS PERCENT AUTO 0 % (0-2); EOSINOPHILS ABSOLUTE AUTO 0.37 K/mm3 (0.00-0.68); EOSINOPHILS PERCENT AUTO 4 % (0-6); Hemoglobin 12.4 g/dL (11.5-16.0); IMMATURE GRAN ABSOLUTE AUTO 0.06 K/mm3 (0.00-0.10); IMMATURE GRAN PERCENT AUTO 1 % (0-1); LYMPHOCYTES ABSOLUTE AUTO 2.47 K/mm3 (0.84-5.20); LYMPHOCYTES PERCENT AUTO 24 % (21-46); MONOCYTES ABSOLUTE AUTO 0.99 K/mm3 (0.16-1.47); MONOCYTES PERCENT AUTO 10 % (4-13); Mean Corpuscular HGB 30.8 pg (26.0-34.0); Mean Corpuscular HGB Conc 31.8 g/dL (31.5-36.5); Mean Corpuscular Volume 97 fL (80-100); Mean Platelet Volume 9.9 fL (9.1-12.4); NEUTROPHILS ABSOLUTE AUTO 6.44 K/mm3 (1.96-9.15); NEUTROPHILS PERCENT AUTO 62 % (41-73); Platelet Count 217 K/mm3 (150-400); RDW Coefficient Variation 13.5 % (11.7-14.2); RDW Standard Deviation 49.1 fL (35.1-46.3); Red Blood Cell Count 4.03 M/mm3 (3.80-5.20); White Blood Cell Count 10.36 K/mm3 (4.00-11.30)
[2020-04-06 21:38] LABS: Bun/Creatinine Ratio 34.6 (12.0-20.0); Calcium, Blood 8.9 mg/dL (8.5-10.1); Creatinine, Blood 2.43 mg/dL (0.40-1.00); Magnesium, Blood 2.5 mg/dL (1.6-2.4); Potassium, Blood 4.9 mmol/L (3.5-5.5)
== END 2020-04-06 23:22 | disposition home or self-care (01) ==
LOC: ER 20:50
PROVIDERS: Emergency Medicine
DX: R60.0 Localized edema (principal); I12.9 Hypertensive chronic kidney disease with stage 1 through stage 4 chronic kidney disease, or unspecified chronic kidney disease; E11.22 Type 2 diabetes mellitus with diabetic chronic kidney disease; N18.4 Chronic kidney disease, stage 4 (severe); F32.9 Major depressive disorder, single episode, unspecified; E66.01 Morbid (severe) obesity due to excess calories; Z88.0 Allergy status to penicillin; Z79.899 Other long term (current) drug therapy; Z79.4 Long term (current) use of insulin; Z79.51 Long term (current) use of inhaled steroids; Z87.891 Personal history of nicotine dependence; Z68.43 Body mass index [BMI] 50.0-59.9, adult
CPT/HCPCS: 36415; 80048; 83735; 83880; 85025; 99284

== ENCOUNTER 2020-04-29 18:23 | Emergency (ER) | payer OTHER ==
[~2020-04-29] VITALS: Ht 167.6 cm; Wt 154.2 kg
[2020-04-29 20:10] LABS: Source, Urine Catheter
[2020-04-29 20:12] LABS: Bilirubin, Urine Neg (Neg); Blood, Urine Neg (Neg); Glucose Qualitative, Urine Neg (Neg); Ketones, Urine Neg (Neg); Leukocyte Esterase, Urine 1+ (Neg); Nitrite, Urine Neg (Neg); Protein, Urine Neg (Neg); Specific Gravity, Urine 1.015 (1.003-1.022); Urobilinogen, Urine NORM (Normal)
[2020-04-29 20:16] LABS: Appearance, Urine Clear (Clear); Color, Urine Yellow (P-Yellow)
[2020-04-29 20:18] LABS: Bacteria Many /hpf; Red Blood Cells, Urine 0-2 /hpf (0-2); Squamous Epithelial Cells Few /hpf (Few)
== END 2020-04-30 00:16 | disposition home or self-care (01) ==
LOC: ER 18:23
PROVIDERS: Emergency Medicine
DX: N93.9 Abnormal uterine and vaginal bleeding, unspecified (principal); F32.9 Major depressive disorder, single episode, unspecified; E11.9 Type 2 diabetes mellitus without complications; Z88.0 Allergy status to penicillin; Z79.899 Other long term (current) drug therapy; Z79.4 Long term (current) use of insulin; Z87.891 Personal history of nicotine dependence
CPT/HCPCS: 51701; 81001; 87077; 87086; 87186; 99283

== ENCOUNTER 2020-07-05 09:42 | Inpatient (IN) | payer OTHER ==
[~2020-07-05] VITALS: Ht 167.6 cm; Wt 153.8 kg
[~2020-07-05 09:42] MED LIST changes: +PRED20 PO
[2020-07-05 11:42] LABS: BASOPHILS ABSOLUTE AUTO 0.02 K/mm3 (0.00-0.23); BASOPHILS PERCENT AUTO 0 % (0-2); EOSINOPHILS ABSOLUTE AUTO 0.06 K/mm3 (0.00-0.68); EOSINOPHILS PERCENT AUTO 0 % (0-6); Hematocrit 37.3 % (33.0-51.0); Hemoglobin 12.9 g/dL (11.5-16.0); IMMATURE GRAN ABSOLUTE AUTO 0.14 K/mm3 (0.00-0.10); IMMATURE GRAN PERCENT AUTO 1 % (0-1); LYMPHOCYTES ABSOLUTE AUTO 1.19 K/mm3 (0.84-5.20); LYMPHOCYTES PERCENT AUTO 7 % (21-46); MONOCYTES ABSOLUTE AUTO 1.19 K/mm3 (0.16-1.47); MONOCYTES PERCENT AUTO 7 % (4-13); Mean Corpuscular HGB 31.5 pg (26.0-34.0); Mean Corpuscular HGB Conc 34.6 g/dL (31.5-36.5); Mean Corpuscular Volume 91 fL (80-100); Mean Platelet Volume 10.7 fL (9.1-12.4); NEUTROPHILS ABSOLUTE AUTO 15.29 K/mm3 (1.96-9.15); NEUTROPHILS PERCENT AUTO 85 % (41-73); Platelet Count 204 K/mm3 (150-400); RDW Coefficient Variation 12.7 % (11.7-14.2); RDW Standard Deviation 42.3 fL (35.1-46.3); Red Blood Cell Count 4.09 M/mm3 (3.80-5.20); White Blood Cell Count 17.89 K/mm3 (4.00-11.30)
[2020-07-05 12:13] LABS: Troponin I 0.017 ng/mL (0.000-0.040)
[2020-07-05 12:17] LABS: Albumin, Blood 3.5 g/dL (3.4-5.0); Albumin/Globulin Ratio 0.9 (0.8-1.8); Bilirubin, Total 0.5 mg/dL (0.1-1.0); Bun/Creatinine Ratio 21.2 (12.0-20.0); Creatinine, Blood 10.4 mg/dL (0.40-1.00); Globulin, Blood 4.1 g/dL (2.2-4.0); Potassium, Blood 4.7 mmol/L (3.5-5.5); Total Protein, Blood 7.6 g/dL (6.4-8.2)
[2020-07-05] MEDS ORDERED: GABA300 PO ×2 (12:41→12:42)
[2020-07-05 13:35] LABS: Source, Urine Clean Catch
[2020-07-05 13:39] LABS: Bilirubin, Urine Neg (Neg); Blood, Urine 2+ (Neg); Glucose Qualitative, Urine Neg (Neg); Ketones, Urine Neg (Neg); Leukocyte Esterase, Urine 3+ (Neg); Nitrite, Urine Neg (Neg); Protein, Urine 2+ (Neg); Urobilinogen, Urine NORM (Normal)
[2020-07-05 13:45] LABS: Appearance, Urine Cloudy (Clear); Color, Urine Yellow (P-Yellow)
[2020-07-05 13:47] LABS: White Blood Cells, Urine 25-50 /hpf (0-5)
[2020-07-05 13:48] LABS: Bacteria Many /hpf; Squamous Epithelial Cells Many /hpf (Few)
--- NOTE | 2020-07-05 14:02 | NUR ---
INTO [facility] VIA [facility]. History, Chart, Medications and Allergies reviewed before start of procedure.Patient confirms NPO status and agrees with scheduled surgery. Surgical site prepped with 2% Chlorhexidine cloth wipe. Lungs clear T/O to Auscultation.
[2020-07-05 14:31] LABS: Creatine Kinase MB 28.5 ng/mL (0.0-3.6); Creatine Kinase MB Index 3.1 (0.0-4.0)
[2020-07-05 17:46] LABS: Source, Urine Catheter
--- NOTE | 2020-07-05 17:51 | NUR ---
Admission/[place] of Care: Patient arrived to room ICU 2 at 1640hr, via stretcher, accompanied by PACU nurse. Patient slightly drowsy, but awake responding easily to verbal stimuli. Oriented to self, place, and date. Perma-cath to rt upper chest (placed today in OR). Cath site shows very scant amount of sanguineous drainage, no s/s of active bleeding, CHG dressing C/D/I. Peripheral IV to lt AC patent and intact. Dr. Diez and Dr. Schuler to room shortly after arrival to unit. Received instructions/orders for Dialysis (per Dr. Diez) now, Morris MOSES in route at this time to run dialysis. Order placed per Dr. Diez after he left unit, for 24hr. Call then placed to Dr. Diez, as he did not want to place a Mays catheter when he was at patient's bedside, expressed concern with accurately obtaining 24hr specimen as patient is incontinent of urine. Received instructions to bladder scan patient to assess for urinary retention before placing mays catheter. Patient then bladder scanned, which showed volume of 550ml. Mays cath then placed without difficulty, sterile technique maintained and UA sent to lab per protocol. Call light in reach, makes needs known. Will continue to monitor for pain, safety, comfort.
[2020-07-05 17:55] LABS: Bilirubin, Urine Neg (Neg); Blood, Urine 3+ (Neg); Glucose Qualitative, Urine Neg (Neg); Ketones, Urine Neg (Neg); Leukocyte Esterase, Urine 3+ (Neg); Nitrite, Urine Neg (Neg); Protein, Urine 2+ (Neg); Specific Gravity, Urine 1.005 (1.003-1.022); Urobilinogen, Urine NORM (Normal)
[2020-07-05 18:07] LABS: Appearance, Urine Cloudy (Clear); Color, Urine Yellow (P-Yellow)
[2020-07-05 18:12] LABS: White Blood Cells, Urine TNTC /hpf (0-5)
[2020-07-05 18:13] LABS: Bacteria Many /hpf; Squamous Epithelial Cells Many /hpf (Few)
--- NOTE | 2020-07-05 18:25 | NUR ---
HD 1:1 NON-ROUTINE HOURS HEMODIALSIS FOR PATIENT ADMITTED TO ICU VIA ER FOR URGENT CVC INSERT AND FIRST RUN DIALYSIS PER DR BAIG'S ORDERS.
--- NOTE | 2020-07-05 19:00 | NUR ---
ASSUMED CARE ASSUMED CARE OF PATIENT. AWAKE AND ALERT. ORIENTED AND COOPERATIVE. SLOW VERBAL RESPONSE. MOVES ALL EXTREMITES WEAKLY. DENIES C/O PAIN OR DISCOMFORT. MONITOR SHOWS NSR, RATE 70s. SBP 80s-100s. RA SATS STABLE. RESPIRATIONS EVEN AND UNLABORED. RSC HEMODIALYSIS CATHETER NOTED- DIALYSIS IN PROGRESS. BLAIR PATENT AND DRAINING YELLOW URINE. SEE SHIFT ASSESSMENT FOR FULL ASSESSMENT.
[2020-07-05 20:30] LABS: Albumin, Blood 3.8 g/dL (3.4-5.0); Anion Gap 12 mmol/L (6-16); Blood Urea Nitrogen 120 mg/dL (8-24); Bun/Creatinine Ratio 20.7 (12.0-20.0); CO2, Blood 29 mmol/L (21-32); Calcium, Blood 8.7 mg/dL (8.5-10.1); Chloride, Blood 87 mmol/L (98-108); Glomerular Filtration Rate 8 (60-); Glucose, Blood 143 mg/dL (70-99); Potassium, Blood 3.3 mmol/L (3.5-5.5); Sodium, Blood 128 mmol/L (136-145)
[2020-07-05 20:31] LABS: Phosphorus, Blood 6.2 mg/dL (2.5-4.9)
[2020-07-06 03:34] LABS: BASOPHILS ABSOLUTE AUTO 0.01 K/mm3 (0.00-0.23); BASOPHILS PERCENT AUTO 0 % (0-2); EOSINOPHILS ABSOLUTE AUTO 0.05 K/mm3 (0.00-0.68); EOSINOPHILS PERCENT AUTO 1 % (0-6); Hematocrit 33.9 % (33.0-51.0); Hemoglobin 11.7 g/dL (11.5-16.0); IMMATURE GRAN ABSOLUTE AUTO 0.07 K/mm3 (0.00-0.10); IMMATURE GRAN PERCENT AUTO 1 % (0-1); LYMPHOCYTES PERCENT AUTO 8 % (21-46); MONOCYTES ABSOLUTE AUTO 0.87 K/mm3 (0.16-1.47); MONOCYTES PERCENT AUTO 8 % (4-13); Mean Corpuscular HGB 31.5 pg (26.0-34.0); Mean Corpuscular HGB Conc 34.5 g/dL (31.5-36.5); Mean Corpuscular Volume 91 fL (80-100); Mean Platelet Volume 10.3 fL (9.1-12.4); NEUTROPHILS PERCENT AUTO 82 % (41-73); Platelet Count 177 K/mm3 (150-400); RDW Coefficient Variation 12.6 % (11.7-14.2); RDW Standard Deviation 42.3 fL (35.1-46.3); Red Blood Cell Count 3.72 M/mm3 (3.80-5.20)
[2020-07-06 04:00] LABS: Albumin, Blood 3.4 g/dL (3.4-5.0); Anion Gap 16 mmol/L (6-16); Blood Urea Nitrogen 132 mg/dL (8-24); Bun/Creatinine Ratio 19.2 (12.0-20.0); CO2, Blood 28 mmol/L (21-32); CPK Creatine Kinase 620 U/L (26-193); Calcium, Blood 8.4 mg/dL (8.5-10.1); Chloride, Blood 86 mmol/L (98-108); Creatinine, Blood 6.88 mg/dL (0.40-1.00); Glomerular Filtration Rate 7 (60-); Glucose, Blood 134 mg/dL (70-99); Magnesium, Blood 2.3 mg/dL (1.6-2.4); Osmolality, Serum 321 mos/KG (275-300); Potassium, Blood 3.7 mmol/L (3.5-5.5); Sodium, Blood 130 mmol/L (136-145); Uric Acid, Blood 11.2 mg/dL (2.6-6.0)
[2020-07-06 04:11] LABS: Phosphorus, Blood 8.7 mg/dL (2.5-4.9)
--- NOTE | 2020-07-06 05:59 | NUR ---
SHIFT SUMMARY NO ACUTE CHANGES. SLEPT INTERMITTENTLY. CONTINUES TO BE ORIENTED AND COOPERATIVE. ASSISTS WITH REPOSITIONING. DENIED C/O PAIN OR DISCOMFORT T/O NOC. REMAINS ON RA. LABILE BP WITH SBP BETWEEN 80s-140. AFEBRILE. BLAIR PATENT AND DRAINING CLOUDY YELLOW URINE. PLAN IS TO DIALYZE PT THIS AM. WILL REPORT TO ONCOMING RN WHEN AVAILABLE.
--- NOTE | 2020-07-06 07:24 | NUR ---
ASSUMED CARE: RECEIVED BEDSIDE REPORT FROM NOC RN. PT SITTING UP IN THE BED A/O ANSWERING QUESTIONS APPROPRIATLY. CALL LIGHT IN REACH. BLAIR NOTED TO BE DRAINGING TO GRAVITY AND BAG NOTED IN A BUCKET OF ICE. 24 HOUR URINE TO BE COMPLETE AT 1730. NO ACUTE DISTRESS NOTED AT THIS TIME. WILL CONTINUE TO MONITOR AND ASSESS FURTHER. NO IV FLUIDS RUNNINT AT THIS TIME.
--- NOTE | 2020-07-06 07:37 | NUR ---
24 HOUR URINE: ADDED ICE TO BLAIR BUCKET
[2020-07-06 09:11] LABS: HBSAG SCREEN Negative (Negative); HEP A AB, IGM Negative (Negative); HEP B CORE AB, IGM Negative (Negative); HEP C VIRUS AB <0.1 (0.0-0.9)
--- NOTE | 2020-07-06 09:23 | NUR ---
DIALYSIS: PT IS RECEIVING DIALYSIS AT THIS TIME. WILL CONTINUE TO MONITOR.
--- NOTE | 2020-07-06 10:03 | NUR ---
ELIVATED TEMP NOTED: CORE TEMP IS NOTED. PT STATES SHE FEELS WARM TEMPT IN THE ROOM HAD BEEN TURNED DOWN DURING BEDSIDE REPORT, BUT SOME HOW WAS TURNED BACK UP. TURNED THE TEMP IN THE ROOM DOWN AND WILL CONTINUE TO MONITOR. TEMPORAL TEMP IS NOTED TO BE AT 98.8
--- NOTE | 2020-07-06 11:32 | NUR ---
24 HOUR URINE: ICE PLACED IN BUCKET WITH BLAIR BAG AND COLLECTION JUG BUCKET.
--- NOTE | 2020-07-06 12:39 | NUR ---
ECHO AT THIS TIME
--- NOTE | 2020-07-06 15:14 | NUR ---
REPORT GIVEN TO YANIV Bradley RN. PT APPEARS STABLE. [facility] PCT TAKES PT UP TO THE FLOOR.
--- NOTE | 2020-07-06 15:35 | NUR ---
1440 RECIEVED REPORT FROM CYRUS ZAMORA. PT HERE TO ROOM AT 1505. SETTLED TO BED. PT A/O ANSWERS QUESTIONS. A/O X3. BED IN LOW POSITION, CALL LITE IN REACH, CALLS APPROP, BED ALARM ON FOR SAFETY
--- NOTE | 2020-07-06 16:51 | NUR ---
PT PLEASANT SINCE TRANSFER FROM ICU.PERMACATH CLEAN, DRY, INTACT. RUCW. PT STATES WILL NOT TOUCH. PT IS SOME DEV DELAY. BP RETURNED UP TO WNL AFTER DAILYSIS. HELD MIDODRINE THIS ANGELLA. NO NEW CONCERNS AT THIS TIME. BED IN LOW POSITION, CALL LITE IN REACH, CALLS APPROP. BED ALARM ON FOR SAFETY
[2020-07-06 19:25] LABS: Protein, Urine Quantitative 38.5 mg/dL (0.0-11.9)
--- NOTE | 2020-07-07 04:02 | NUR ---
SHIFT SUMMARY PATIENT HAD NO ACUTE CHANGES OBSERVED. AXOX 2-3 AND BEDREST. PERMACATH C/D/I RUC. BLAIR PATENT AND DRAINING. VSS/AFEBRILE. DENIES PAIN, SOB, AND N/V. PIV REMAINS INTACT. VISUAL HALLUCINATIONS AT TIMES SEEING SOMEONE IN ROOM AND BEHIND DOOR. DEVELOPMENTALLY DELAYED. CBG 244. CALL LIGHT IN REACH. BED IN LOWEST POSITION. WILL CONTINUE TO MONITOR UNTIL DAY SHIFT NURSE ASSUMES CARE.
[2020-07-07 05:00] LABS: Hematocrit 37.6 % (33.0-51.0); Hemoglobin 12.3 g/dL (11.5-16.0)
[2020-07-07 05:50] LABS: Albumin, Blood 3.7 g/dL (3.4-5.0); Anion Gap 11 mmol/L (6-16); Blood Urea Nitrogen 68 mg/dL (8-24); Bun/Creatinine Ratio 18.7 (12.0-20.0); CO2, Blood 31 mmol/L (21-32); Calcium, Blood 9.6 mg/dL (8.5-10.1); Chloride, Blood 94 mmol/L (98-108); Creatinine, Blood 3.63 mg/dL (0.40-1.00); Glomerular Filtration Rate 14 (60-); Glucose, Blood 217 mg/dL (70-99); Phosphorus, Blood 6.4 mg/dL (2.5-4.9); Potassium, Blood 3.6 mmol/L (3.5-5.5); Sodium, Blood 136 mmol/L (136-145)
--- NOTE | 2020-07-07 16:04 | NUR ---
SHIFT SUMMARY PT AWAKE DURING SHIFT REPORT THIS AM, RESTING QUIETLY. SOME AMS NOTED; PER SHIFT REPORT, PT IS DEVELOPMENTALLY DELAYED. PT HAS BEEN EMOTIONALLY UP AND DOWN ALL DAY TODAY. TOOK MEDICATIONS W/O DIFFICULTY. PT TAKEN DOWN TO DIALYSIS THIS AM. DR DELGADO IN TO SEE PT PRIOR TO GOING DOWN. PT WILL NEED TO HAVE OUTPT DIALYSIS SET UP PRIOR TO D/C, PER DR DELGADO. P/T HERE AFTER DIALYSIS TO HELP GET PT MOBILE AGAIN. PT WAS NOT CO-OPERATIVE SHE NEEDED TO BE. P/T ABLE TO ASSIST PT, UP TO EOB FOR A WHILE. MORBIDLY OBESE, MAKING MOBILITY VERY DIFFICULT. ABX CHANGED PER DR DELGADO. BLAIR TO GRAVITY, PATENT; PER DR BAIG. CALL LT IN REACH, ABLE TO MAKE NEEDS KNOWN.
--- NOTE | 2020-07-07 17:37 | NUR ---
BLOOD GLUCOSE HAS SLOWLY GONE UP TODAY. DR DELGADO NOTIFIED. PT RESTARTED ON LANTUS AT BEDTIME; SEE EMAR, WELL MED SS INSULIN.
--- NOTE | 2020-07-08 04:36 | NUR ---
SHIFT SUMMARY ALERT, ABLE TO MAKE NEEDS KNOWN. COOPERATIVE WITH CARE. ANXIOUS AND FEARFUL AT TIMES. C/O PAIN/DISCOMFORT TO LOWER BACK; CHRONIC, MEDICATED PER EMAR. BP NOTED TO BE ELEVATED AT BEGINNING OF SHIFT AND STILL HAS NOT CHANGED. WILL RE-CHECK PRESSURE. APPEARED TO REST MUCH OF SHIFT. BLAIR SECURED AND DRAINING TO GRAIVITY. NO OTHER ACUTE CHANGES NOTED OVERNIGHT. BED REMAINED IN LOWEST POSITION. CALL LIGHT AND BELONINGS WITHIN REACH. WCTM. REPORT TO ONCOMING RN.
[2020-07-08 05:03] LABS: Hematocrit 41.7 % (33.0-51.0); Hemoglobin 13.6 g/dL (11.5-16.0)
[2020-07-08 05:37] LABS: Albumin, Blood 3.6 g/dL (3.4-5.0); Anion Gap 11 mmol/L (6-16); Blood Urea Nitrogen 53 mg/dL (8-24); Bun/Creatinine Ratio 19.5 (12.0-20.0); CO2, Blood 29 mmol/L (21-32); Calcium, Blood 11.1 mg/dL (8.5-10.1); Chloride, Blood 93 mmol/L (98-108); Creatinine, Blood 2.72 mg/dL (0.40-1.00); Glomerular Filtration Rate 19 (60-); Glucose, Blood 241 mg/dL (70-99); Magnesium, Blood 1.9 mg/dL (1.6-2.4); Phosphorus, Blood 5.2 mg/dL (2.5-4.9); Potassium, Blood 3.6 mmol/L (3.5-5.5); Sodium, Blood 133 mmol/L (136-145)
--- NOTE | 2020-07-08 11:55 | NUR ---
PT REFUSING TO GET OUT OF CHAIR & WANTS TO GO HOME PT UP IN WHEELCHAIR. REFUSING TO GET BACK INTO BED WITH NURSING STAFF AND PHYSICAL THERAPY. DR. DELGADO IN ROOM DURING EVENT AND AWARE OF PROBLEM. PT STATES SHE WANTS TO QUIT DIALYSIS AND THAT SHE "CAN TAKE CARE OF HERSELF." DR. BAIG NOTIFIED AND SPOKE TO PT ABOUT CARE. DR. BAIG STATED HE WILL COME IN AND SPEAK TO PT. MEANWHILE PT REQUIRES A 2P MAX ASSIST TO TRANSFER FROM BED TO WHEELCHAIR AND BACK. DR. DELGADO NOTIFIED OF ELEVATED SUGAR LEVELS AND LACK OF APPETITE.
--- NOTE | 2020-07-08 12:57 | NUR ---
UPDATE PT RELUCTANT TO TAKEN MEDICATIONS BUT AGREEABLE AFTER TALKING TO DR. BAIG. DR. BAIG TREATED PT TO LUNCH A COMPROMISE TO STAYING ANOTHER NIGHT. WILL MONITOR SUGARS. PT CONTINUES TO THINK THAT MEDICATIONS & FOOD ARE POISONED BY STAFF. PT UP IN WHEELCHAIR. STATES SHE WILL LAY DOWN AFTER SHE IS DONE EATING AND AGREEABLE TO STAYING. PRIOR TO THIS AGREEMENT, PT HAD TO HAVE BLOOD SUGAR REPEATED IN FRONT OF DR. BAIG TO PROVE STAFF WASNT LYING ABOUT RESULTS. WILL CONTINUE TO MONITOR.
--- NOTE | 2020-07-08 17:03 | NUR ---
SHIFT SUMMARY PT AGREED TO GET BACK INTO BED. MORE RELAXED, BUT STATES SHE IS "SCARED OF BEING HERE" PT REMINDED THAT SHE "IS SAFE AND WE ARE ALL ON HER TEAM". PT HAS POOR APPETITE. SUGARS REMAIN ELEVATED. DR. DELGADO MADE ADJUSTMENTS TO INSULINS TO HELP. SON IN TO VISIT THIS MORNING. TOOK PT OUTSIDE FOR AIR, THIS TRIGGERED HER ANXIETY AND FURTHER PARANOIA. PT STARTED BLADDER TRAINING THIS SHIFT. OKAY TO REMOVE BLAIR NEXT SHIFT. NO OTHER CHANGES IN ASSESSMENT AT THIS TIME. VS REVIEWED. WILL CONTINUE TO MONITOR UNTIL TURNOVER IS COMPLETE.
--- NOTE | 2020-07-08 22:37 | NUR ---
PATIENT ANXIOUS AND IRRITABLE INITIALLY REFUSING MEDICATION ADMINISTRATION. YELLING AND SCREAMING IN ROOM. WAITED AND VISTARIL 25 MG GIVEN FOR ANXIETY AND MELATONIN 6 MG GIVEN FOR INOSOMNIA. PATIENT ABLE TO TAKE REST OF MEDICATION AND INSULIN. CALL LIGHT IN REACH.
--- NOTE | 2020-07-09 03:09 | NUR ---
SHIFT SUMMARY PATIENT HAD TWO EVENTS YELLING AND SCREAMING. REFUSED HER MEDICATION INITIALLY AND TOOK IT THE SECOND TIME AFTER WAITING LESS THAN AN HOUR. MELATONIN 6 MG GIVEN FOR INSOMNIA AND VISTARIL 25 MG GIVEN FOR ANXIETY. CBG 235. TOOK MEDICATION WHOLE WITH WATER. AXOX 2-3, DEVELOPMENTALLY DELAYED. VSS/AFEBRILE. REPORTED BACK PAIN X ONE AND TYLENOL 650 MG GIVEN PER EMAR. HELD MIDODRINE SBP>130. PATIENT WANTING TO LEAVE FACILITY TO GO HOME. CALL LIGHT IN REACH. BED IN LOWEST POSITION. WILL CONTINUE TO MONITOR UNTIL DAY SHIFT NURSE ASSUMES CARE.
[2020-07-09 05:26] LABS: Hematocrit 42.4 % (33.0-51.0)
[2020-07-09 05:58] LABS: Albumin, Blood 3.7 g/dL (3.4-5.0); Anion Gap 13 mmol/L (6-16); Blood Urea Nitrogen 75 mg/dL (8-24); Bun/Creatinine Ratio 24.9 (12.0-20.0); CO2, Blood 30 mmol/L (21-32); Chloride, Blood 92 mmol/L (98-108); Creatinine, Blood 3.01 mg/dL (0.40-1.00); Glomerular Filtration Rate 17 (60-); Glucose, Blood 211 mg/dL (70-99); Magnesium, Blood 1.9 mg/dL (1.6-2.4); Phosphorus, Blood 4.7 mg/dL (2.5-4.9); Potassium, Blood 3.3 mmol/L (3.5-5.5); Sodium, Blood 135 mmol/L (136-145)
[2020-07-09 10:08] LABS: ANTIGLOMERULAR BM AB 3 units (0-20)
--- NOTE | 2020-07-09 13:11 | NUR ---
RETENTION PT HAS YET TO PEE AFTER 6 HOURS OF NO BLAIR. PT DENIES AN URGE TO URINATE. PT ATTEMPTED TO GET UP TO COMMODE TO TRY BUT WAS UNABLE TO. PT STRAIGHT CATHED PER PROTOCOL. [address] NEED[address] FOR THIS. DR. COLEMAN NOTIFIED AND GAVE NEW ORDER FOR STRAIGH CATH FOR BLADDER SCAN MORE THAN 400CC.
--- NOTE | 2020-07-09 18:27 | NUR ---
SHIFT SUMMARY PT HAD DIALYSIS THIS SHFIT. VERY FATIGUED AFTERWARDS. WORKED WITH PHYSICAL THERAPY UP TO SIDE OF BED AND STOOD. UNABLE TO TRANSFER TO CHAIR. PT MEDICATED ONCE PRN FOR ANXIETY. PT STRAIGHT CATHED ONCE THIS SHIFT. BLADDER SCANNED AT 1814 AND REVEALED 32CC. PT ENCOURAGED TO INCREASE PO INTAKE. WATER & DIET PEPSI PROVIDED. NO OTHER CHANGES IN ASSESSMENT AT THIS TIME. VITALS SIGNS REVIEWED. WILL CONTINUE TO MONITOR UNTIL TURNOVER IS COMPLETE.
--- NOTE | 2020-07-09 21:44 | NUR ---
QUIET UNLESS SPOKEN TO, TOLERATED HS MEDS WELL. HOB ELEVATED. CALL LIGHT IN REACH
--- NOTE | 2020-07-09 23:49 | NUR ---
FLUIDS ENCOURAGED. BLADDER SCAN 124 CC. WILL RESCAN IN ABOUT 4 HRS.
--- NOTE | 2020-07-10 05:05 | NUR ---
BLADDER SCAN 221. FLUIDS CONTINUE TO BE ENCOURAGED. CALL LIGHT IN REACH
[2020-07-10 05:38] LABS: BASOPHILS ABSOLUTE AUTO 0.06 K/mm3 (0.00-0.23); BASOPHILS PERCENT AUTO 0 % (0-2); EOSINOPHILS ABSOLUTE AUTO 0.29 K/mm3 (0.00-0.68); EOSINOPHILS PERCENT AUTO 2 % (0-6); Hematocrit 45.8 % (33.0-51.0); Hemoglobin 14.1 g/dL (11.5-16.0); IMMATURE GRAN ABSOLUTE AUTO 0.12 K/mm3 (0.00-0.10); IMMATURE GRAN PERCENT AUTO 1 % (0-1); LYMPHOCYTES ABSOLUTE AUTO 2.84 K/mm3 (0.84-5.20); LYMPHOCYTES PERCENT AUTO 20 % (21-46); MONOCYTES ABSOLUTE AUTO 1.45 K/mm3 (0.16-1.47); MONOCYTES PERCENT AUTO 10 % (4-13); Mean Corpuscular HGB 30.6 pg (26.0-34.0); Mean Corpuscular HGB Conc 30.8 g/dL (31.5-36.5); Mean Corpuscular Volume 99 fL (80-100); Mean Platelet Volume 10.2 fL (9.1-12.4); NEUTROPHILS ABSOLUTE AUTO 9.81 K/mm3 (1.96-9.15); NEUTROPHILS PERCENT AUTO 67 % (41-73); Platelet Count 204 K/mm3 (150-400); RDW Coefficient Variation 12.9 % (11.7-14.2); RDW Standard Deviation 47.8 fL (35.1-46.3); Red Blood Cell Count 4.61 M/mm3 (3.80-5.20); White Blood Cell Count 14.57 K/mm3 (4.00-11.30)
[2020-07-10 05:56] LABS: Albumin, Blood 3.3 g/dL (3.4-5.0); Anion Gap 10 mmol/L (6-16); Blood Urea Nitrogen 64 mg/dL (8-24); Bun/Creatinine Ratio 21.1 (12.0-20.0); CO2, Blood 24 mmol/L (21-32); Calcium, Blood 10.3 mg/dL (8.5-10.1); Chloride, Blood 100 mmol/L (98-108); Creatinine, Blood 3.04 mg/dL (0.40-1.00); Glomerular Filtration Rate 17 (60-); Glucose, Blood 216 mg/dL (70-99); Magnesium, Blood 2.2 mg/dL (1.6-2.4); Phosphorus, Blood 4.8 mg/dL (2.5-4.9); Potassium, Blood 3.7 mmol/L (3.5-5.5); Sodium, Blood 134 mmol/L (136-145)
--- NOTE | 2020-07-10 08:25 | NUR ---
DIFFICULT TO TELL IF PATIENT IS TRULY CONFUSED OR DOES NOT WANT TO ANSWER QUESTIONS
[2020-07-10 13:10] LABS: ALBUMIN 3.1 g/dL (2.9-4.4); ALPHA-1-GLOBULIN 0.3 g/dL (0.0-0.4); ALPHA-2-GLOBULIN 1.1 g/dL (0.4-1.0); ANA DIRECT Negative (Negative); ANTIMYELOPEROXIDASE (MPO) ABS <9.0 U/mL (0.0-9.0); ANTIPROTEINASE 3 (PR-3) ABS <3.5 U/mL (0.0-3.5); ATYPICAL PANCA <1:20 titer (Neg:<1:20); BETA GLOBULIN 0.9 g/dL (0.7-1.3); CYTOPLASMIC (C-ANCA) <1:20 titer (Neg:<1:20); GAMMA GLOBULIN 0.9 g/dL (0.4-1.8); GLOBULIN, TOTAL 3.2 g/dL (2.2-3.9); IMMUNOGLOBULIN A, QN, SERUM 215 mg/dL (87-352); IMMUNOGLOBULIN G, QN, SERUM 836 mg/dL (586-1602); IMMUNOGLOBULIN M, QN, SERUM 201 mg/dL (26-217); M-SPIKE Not Observed g/dL (Not Observed); PERINUCLEAR (P-ANCA) <1:20 titer (Neg:<1:20); PROTEIN, TOTAL, SERUM 6.3 g/dL (6.0-8.5)
--- NOTE | 2020-07-10 17:43 | NUR ---
ALERT. SLOW TO RESPOND. UNLABORED RESPIRATIONS. BLADDER SCAN 351ML. PER CAREGIVER PATIENT WALKS AT HOME TO BATHROOM AND CAN TAKE SHOWER ON HER OWN. DISCUSS WITH PATIENT COOPERATING WITH P.T. AND STAFF WITH REGARDS TO GETTING UP. PATIENT WANTS TO GO HOME. INCONTINENT OF URINE AND STOOL. COOPERATIVE WITH MEDS. NO ACUTE CHANGES.WCTM.
--- NOTE | 2020-07-11 06:30 | NUR ---
SHIFT SUMMARY PT IS A 59 Y/O FEMALE, ADMITTED FOR ACUTE ON CHRONIC RENAL FAILURE. SHE HAS A HX OF DEVELOPMENTAL DELAY, A&O X 2, AND CURRENTLY ON BEDREST. SHE WAS MEDICATED FOR BACK PAIN AT HS, AND AFTER REPORTING NAUSEA WAS MEDICATED WITH PRN ODT ZOFRAN PER HOSPITALIST ASHVIN PARK'S ORDER. NO C/O SOB. PT SLEPT WELL THROUGH THE NIGHT. VITAL SIGNS STABLE. NO ACUTE CHANGES IN PT CONDITION NOTED. WILL CONTINUE TO MONITOR AND TREAT PER EMAR UNTIL HAND OFF TO DAY SHIFT RN.
[2020-07-11] MEDS ORDERED: NYSTOP15 GM TOP (08:55)
[2020-07-11] MEDS ORDERED: VERA240ER PO (08:57)
[2020-07-11] MEDS ORDERED: TRAN2 PO (08:58)
[2020-07-11] MEDS ORDERED: SPIR25 PO (08:59)
[2020-07-11 09:02] LABS: Albumin, Blood 3.4 g/dL (3.4-5.0); Anion Gap 10 mmol/L (6-16); Blood Urea Nitrogen 93 mg/dL (8-24); Bun/Creatinine Ratio 33.9 (12.0-20.0); CO2, Blood 28 mmol/L (21-32); Calcium, Blood 10.5 mg/dL (8.5-10.1); Chloride, Blood 98 mmol/L (98-108); Creatinine, Blood 2.74 mg/dL (0.40-1.00); Glomerular Filtration Rate 19 (60-); Glucose, Blood 192 mg/dL (70-99); Magnesium, Blood 2.2 mg/dL (1.6-2.4); Phosphorus, Blood 5.6 mg/dL (2.5-4.9); Potassium, Blood 3.7 mmol/L (3.5-5.5); Sodium, Blood 136 mmol/L (136-145)
[2020-07-11] MEDS ORDERED: QUET100 PO (09:03)
[2020-07-11] MEDS ORDERED: ACET325 PO (09:03)
[2020-07-11] MEDS ORDERED: BRINTELLIX10 MG PO (09:04)
[2020-07-11] MEDS ORDERED: Nicoderm Cq1 EAC1 TOP (09:06)
[2020-07-11] MEDS ORDERED: VOLTAREN ARTHRI20 GM TOP (09:06)
[2020-07-11] MEDS ORDERED: VITAMIN D325 MC3 PO (09:07)
[2020-07-11] MEDS ORDERED: BUME1 PO (09:08)
[2020-07-11] MEDS ORDERED: Ranitidine HCl150 M1 PO (09:09)
[2020-07-11 10:19] LABS: Hematocrit 45.1 % (33.0-51.0); Hemoglobin 14.3 g/dL (11.5-16.0)
[2020-07-11 13:08] LABS: M-SPIKE, % Comment: % (Not Observed)
--- NOTE | 2020-07-11 15:13 | NUR ---
DIALYSIS NURSE, BUSTER, WAS UNABLE TO GET PERMACATH TO WORK. USED ACTIVASE WHICH WAS LEFT IN FOR ONE HOUR AND STILL COULD NOT GET CATH TO WORK. STS PER , DO ANOTHER ACTIVASE AND LEAVE IN OVER NIGHT AND TRY AGAIN TOMORROW. IF CATH DOES NOT WORK, THEN WILL NEED SURGERY FOR ANOTHER CATH PLACEMENT. WILL LET NIGHT RN KNOW TO NOTIFY TOMORROWS DAY SHIFT RN. WILL PLACE PATIENT NPO AFTER MIDNITE JUST IN CASE.
--- NOTE | 2020-07-11 16:41 | NUR ---
Hemodialysis Patients catheter was clotted. Unable to run. Called Dr. Diez for orders. Activase ordered for a 1 hour dwell. Then restart. Activase administered. Will come back in one hour to resart
--- NOTE | 2020-07-11 16:44 | NUR ---
Hemodialysis Activase was not successful. Called Dr. Diez for orders. Activase orderd for a dwell. If not successfull, call for port replacement. Acitvase was administered. Will give report to dialysis nurse Becca.
--- NOTE | 2020-07-11 18:40 | NUR ---
ALERT AND ORIENTED X 3. DEVELOPMENTALLY DELAYED. PERMACATH DID NOT WORK TODAY.2 PERSON ASSIST TO CHAIR. WEAKNESS ON RETURNING TO BED REQUIRING 3 PERSON. NICKEL TO QUARTER SIZE WOUND TO LEFT BUTTOCK W/NEW MEPILEX APPLIED. SCANT AMOUNT OF DRAINAGE. C/O BACK PAIN WITJH MOVING AND MEDICATED W/GOOD RESULTS. UNLABORED RESPIRATIONS. WCTM
--- NOTE | 2020-07-12 04:36 | NUR ---
CHANGE CONTROL MANAGER SUMMARY PT A/O X3 TO SELF AND PLACE. SLEPT WELL TONIGHT. NPO SINCE MIDNIGHT FOR POSSIBLE PROCEDURE. MEDICATED FOR CHRONIC BACK PAIN. DENIES CHEST PAIN, SOB. VSS. NO ACUTE CHANGES.
[2020-07-12 05:15] LABS: Hematocrit 43.2 % (33.0-51.0); Hemoglobin 13.7 g/dL (11.5-16.0)
[2020-07-12 05:59] LABS: Albumin, Blood 3.4 g/dL (3.4-5.0); Anion Gap 14 mmol/L (6-16); Blood Urea Nitrogen 109 mg/dL (8-24); Bun/Creatinine Ratio 43.4 (12.0-20.0); CO2, Blood 25 mmol/L (21-32); Calcium, Blood 10.4 mg/dL (8.5-10.1); Chloride, Blood 99 mmol/L (98-108); Creatinine, Blood 2.51 mg/dL (0.40-1.00); Glomerular Filtration Rate 21 (60-); Glucose, Blood 180 mg/dL (70-99); Phosphorus, Blood 5.5 mg/dL (2.5-4.9); Potassium, Blood 3.2 mmol/L (3.5-5.5); Sodium, Blood 138 mmol/L (136-145)
--- NOTE | 2020-07-12 14:51 | NUR ---
PATIENT HAS HAD AN UNEVENTFUL DAY. SHE WENT TO DIALYSIS AND BRENDA, THE DIALYSIS NURSE, WAS ABLE TO ACCESS THE PATIENTS HD PORT AND THE PATIENT DID NOT REQUIRE NEW ACCESS TO BE SURGICALLY PLACED. SUBQ HEPARIN HELD THIS MORNING IN PREP OF POSSIBLE SURGERY, ALTHOUGH THE PATIENT DID NOT REQUIRE IT. PATIENT TOLERATED DIALYSIS WITHOUT TROUBLE AND IS NOW IN HER ROOM RELAXING. PATIENT REPOSITIONED AND CHANGED NEEDED. WILL CONTINUE TO MONITOR AND PROVIDE CARE NEEDED.
--- NOTE | 2020-07-13 05:05 | NUR ---
SHIFT SUMMARY PATIENT HAD NO ACUTE CHANGES OBSERVED. AXOX X 2-3, DEVELOPMENTAL DELAY. BEDFAST. TAKES MEDICATION WHOLE WITH WATER. NO IV ACCESS. CBG 172. VSS/AFEBRILE. DENIES PAIN, SOB AND N/V. PATIENT ANXIOUS AT TIMES PULLING ON BED RAILS. MELATONIN 6 MG GIVEN FOR INSOMNIA. PERMACATH INTACT. CALL LIGHT IN REACH. BED IN LOWEST POSITION. WILL CONTINUE TO MONITOR UNTIL DAY SHIFT NURSE ASSUMES CARE.
[2020-07-13 05:12] LABS: Hematocrit 46.8 % (33.0-51.0); Hemoglobin 14.9 g/dL (11.5-16.0)
[2020-07-13 05:43] LABS: Albumin, Blood 3.7 g/dL (3.4-5.0); Anion Gap 14 mmol/L (6-16); Blood Urea Nitrogen 86 mg/dL (8-24); CO2, Blood 25 mmol/L (21-32); Chloride, Blood 97 mmol/L (98-108); Creatinine, Blood 3.44 mg/dL (0.40-1.00); Glomerular Filtration Rate 15 (60-); Glucose, Blood 196 mg/dL (70-99); Magnesium, Blood 2.3 mg/dL (1.6-2.4); Phosphorus, Blood 5.8 mg/dL (2.5-4.9); Potassium, Blood 3.6 mmol/L (3.5-5.5); Sodium, Blood 136 mmol/L (136-145)
[2020-07-13] MEDS ORDERED: METO25ER PO (14:43)
[2020-07-13] MEDS ORDERED: MIDO5 PO (14:43)
--- NOTE | 2020-07-13 15:00 | NUR ---
PATIENT D/C'D TO [facility], REPORTS CALLED TO KYLER, A NURSE AT THE FACILITY. BELONGINGS SENT WITH PATIENT. SHE WAS TRANSPORTED BY [facility]. DC PACKET WAS LEFT BEHIND, [facility] CALLED AND THEY WILL BE BACK TO PICK IT UP AT THE PATIENT ENTRANCE.
== END 2020-07-13 15:11 | DRG 673 ==
LOC: ER 09:42 → PCU 13:51 → ICUE 13:51 → MEDS 07-06 15:15
PROVIDERS: Emergency Medicine; Internal Medicine; Internal Medicine Nephrology; Surgery; ADMIT Internal Medicine
PROC: 02HV33Z Insertion of Infusion Device into Superior Vena Cava, Percutaneous Approach (ICD-10-PCS; 2020-07-05)
PROC: B513ZZA Fluoroscopy of Right Jugular Veins, Guidance (ICD-10-PCS; 2020-07-05)
PROC: 5A1D70Z Performance of Urinary Filtration, Intermittent, Less than 6 Hours Per Day (ICD-10-PCS; 2020-07-05)
PROC: 0JH63XZ Insertion of Tunneled Vascular Access Device into Chest Subcutaneous Tissue and Fascia, Percutaneous Approach (ICD-10-PCS; principal; 2020-07-05 14:00)
PROC: 5A1D70Z Performance of Urinary Filtration, Intermittent, Less than 6 Hours Per Day (ICD-10-PCS; 2020-07-06)
PROC: 5A1D70Z Performance of Urinary Filtration, Intermittent, Less than 6 Hours Per Day (ICD-10-PCS; 2020-07-07)
DX: N17.9 Acute kidney failure, unspecified (principal); G92 Toxic encephalopathy; I12.0 Hypertensive chronic kidney disease with stage 5 chronic kidney disease or end stage renal disease; E87.1 Hypo-osmolality and hyponatremia; M62.82 Rhabdomyolysis; Z68.43 Body mass index [BMI] 50.0-59.9, adult; Z20.828 Contact with and (suspected) exposure to other viral communicable diseases; E87.70 Fluid overload, unspecified; E11.22 Type 2 diabetes mellitus with diabetic chronic kidney disease; N18.6 End stage renal disease; Z99.2 Dependence on renal dialysis; D63.1 Anemia in chronic kidney disease; E11.65 Type 2 diabetes mellitus with hyperglycemia; E66.01 Morbid (severe) obesity due to excess calories; E83.39 Other disorders of phosphorus metabolism; E83.52 Hypercalcemia; E87.6 Hypokalemia; F32.9 Major depressive disorder, single episode, unspecified; F43.10 Post-traumatic stress disorder, unspecified; Z87.891 Personal history of nicotine dependence; I95.9 Hypotension, unspecified; W19.XXXA Unspecified fall, initial encounter; E11.40 Type 2 diabetes mellitus with diabetic neuropathy, unspecified; F41.9 Anxiety disorder, unspecified; F60.89 Other specific personality disorders
CPT/HCPCS: 36415; 36593; 51702; 71046; 76770; 77001; 80048; 80053; 80069; 80074; 81001; 81050; 82530; 82533; 82550; 82553; 82784; 82947; 83516; 83520; 83735; 83930; 84156; 84165; 84166; 84443; 84484; 84550; 85014; 85018; 85025; 86038; 86256; 86317; 86334; 86335; 87077; 87086; 87186; 93005; 93010; 93306; 94760; 96360; 96361; 97110; 97162; 97166; 97530; 97535; 99285-25; A9270; A9270-GY; C1750; J0690; J0696; J1644; J2370; J2405; J2704; J2997; J3010; J7030; P9046; Q0177; U0002

== ENCOUNTER 2020-07-28 14:08 | Inpatient (IN) | payer OTHER ==
[~2020-07-28] VITALS: Ht 167.6 cm; Wt 152.0 kg
[~2020-07-28 14:08] MED LIST changes: -ARIPIPRAZOLE5 MG PO; +BISA10S PR; +BUME1 PO; +METO25ER PO; +NYSTOP15 GM TOP; +Ranitidine HCl150 M1 PO; +SULTRIDS PO; +VOLTAREN ARTHRI20 GM TOP; -Venlafaxine HC225 MG PO
[2020-07-28 14:45] LABS: Hematocrit 33.5 % (33.0-51.0); Hemoglobin 11.3 g/dL (11.5-16.0); Mean Corpuscular HGB 30.5 pg (26.0-34.0); Mean Corpuscular HGB Conc 33.7 g/dL (31.5-36.5); Mean Corpuscular Volume 90 fL (80-100); Red Blood Cell Count 3.71 M/mm3 (3.80-5.20); White Blood Cell Count 22.37 K/mm3 (4.00-11.30)
[2020-07-28 14:48] LABS: Mean Platelet Volume 13.4 fL (9.1-12.4)
[2020-07-28] MEDS ORDERED: BASAGLAR K100 UNIT/1 SC (14:51)
[2020-07-28 14:52] LABS: Platelet Count 35 K/mm3 (150-400)
[2020-07-28] MEDS ORDERED: ABILIFY MYCITE15 MG PO (14:52)
[2020-07-28] MEDS ORDERED: QUET100 PO (14:53)
[2020-07-28] MEDS ORDERED: BUME2 PO (14:53)
[2020-07-28] MEDS ORDERED: TOPI25 PO (14:53)
[2020-07-28] MEDS ORDERED: GABA300 PO ×2 (14:54)
[2020-07-28] MEDS ORDERED: POTA10T PO (14:55)
[2020-07-28] MEDS ORDERED: Verapamil HCl240 M1 PO (14:56)
[2020-07-28] MEDS ORDERED: BRINTELLIX10 MG PO (14:57)
[2020-07-28] MEDS ORDERED: SPIR25 PO (14:57)
[2020-07-28 14:58] LABS: PO2 Arterial 57.6 mmHg (80-100)
[2020-07-28] MEDS ORDERED: METO5 PO (14:58)
[2020-07-28] MEDS ORDERED: ALBU90OI INH (14:58)
[2020-07-28] MEDS ORDERED: CLON.5 PO (14:59)
[2020-07-28] MEDS ORDERED: PANT40 PO (14:59)
[2020-07-28 15:02] LABS: International Normalized Ratio 1.05; Prothrombin Time Results 11.2 Sec (9.7-11.5)
[2020-07-28 15:06] LABS: Albumin/Globulin Ratio 0.4 (0.8-1.8); Bilirubin, Total 0.9 mg/dL (0.1-1.0); Bun/Creatinine Ratio 51.8 (12.0-20.0); Calcium, Blood 9.9 mg/dL (8.5-10.1); Creatinine, Blood 1.7 mg/dL (0.40-1.00); Globulin, Blood 5.3 g/dL (2.2-4.0); Potassium, Blood 3.2 mmol/L (3.5-5.5); Total Protein, Blood 7.3 g/dL (6.4-8.2)
[2020-07-28 15:15] LABS: BAND PERCENT MAN 1 % (0-8); BASOPHILS PERCENT MAN 0 % (0-2); EOSINOPHILS PERCENT MAN 0 % (0-6); LYMPHOCYTES ABSOLUTE MAN 0.89 K/mm3 (0.84-5.20); LYMPHOCYTES PERCENT MAN 4 % (21-46); METAMYELOCYTE ABSOLUTE MAN 0.67 K/mm3 (0.00-0.00); METAMYELOCYTE PERCENT MAN 3 % (0-0); MONOCYTES ABSOLUTE MAN 1.34 K/mm3 (0.16-1.47); MONOCYTES PERCENT MAN 6 % (4-13); MYELOCYTE ABSOLUTE MAN 0.22 K/mm3 (0.00-0.00); MYELOCYTE PERCENT MAN 1 % (0-0); NEUTROPHILS ABSOLUTE MAN 19.23 K/mm3 (1.96-9.15); SEG NEUTROPHILS PERCENT MAN 85 % (41-73); TOTAL CELLS COUNTED 100
[2020-07-28 15:58] LABS: U Amphetamine Screen Not Detected; U Barbituate Screen Not Detected; U Benzodiazapine Screen Not Detected; U Buprenorphine Screen Not Detected; U Cannabinoids Screen Not Detected; U Cocaine Screen Not Detected; U Methadone Screen Not Detected; U Methamphetamine Screen Not Detected; U Opiates Screen Not Detected; U Oxycodone Screen Not Detected; U Phencyclidine Screen Not Detected; U Propoxyphene Screen Not Detected
[2020-07-28] MEDS ORDERED: VITAMIN D325 MC3 PO (16:08)
[2020-07-28] MEDS ORDERED: EFFEXOR XR37.5 MG PO (16:08)
[2020-07-28] MEDS ORDERED: MIDO5 PO (16:10)
[2020-07-28] MEDS ORDERED: Nicoderm Cq1 EAC1 TOP ×2 (16:10→19:12)
[2020-07-28] MEDS ORDERED: ACET325 PO (16:11)
[2020-07-28] MEDS ORDERED: Milk Of Ma400 MG/5 M PO (16:12)
[2020-07-28] MEDS ORDERED: BISA10S PR (16:12)
[2020-07-28] MEDS ORDERED: ATHLETE'S FOO35.4 GM TOP (16:13)
--- NOTE | 2020-07-28 19:13 | NUR ---
PT ARRIVE IN THE UNIT VIA STRETCHER, SLIDE TRANSFER TO BED. REPORT RECEIVED FROM TK MOSES. PT IS EHRE FOR MRSA INFECTION BACTEREMIA, PT WAS STARTED ON IV ABO IN THE ER AND SOME FLUIDS. PT IS ALERT ABLE TO RESPOND TO QUESTIONS BUT FALLS ASLEEP EASILY, VITALS HRR SINUS TACH 115'S, BP SYSTOLIC 140'S, SATS ABOVE 94% ON ROOMAIR, AFEBRILE. PT DENIES ANY PAIN/SOB. DR BAIG SAW PT TODAY ORDERED BLOOD CULTURE ON PERMACATH, ALSO GENERAL SURGERY CONSULT FOR POSS PERMACATH REMOVAL IN AM CALLED TO ANSWERING SERVICE. NS RUNNING AT 75MLS/HR. WILL REPORT TO ONCOMING SHIFT
[2020-07-28 19:53] LABS: Source, Urine Catheter
[2020-07-28 20:01] LABS: Appearance, Urine Hazy (Clear); Bilirubin, Urine Neg (Neg); Blood, Urine 1+ (Neg); Color, Urine Amber (P-Yellow); Glucose Qualitative, Urine 4+ (Neg); Ketones, Urine Neg (Neg); Leukocyte Esterase, Urine Neg (Neg); Nitrite, Urine Neg (Neg); Protein, Urine 2+ (Neg); Specific Gravity, Urine 1.015 (1.003-1.022); Urobilinogen, Urine NORM (Normal)
[2020-07-28 20:10] LABS: Bacteria Many /hpf; Red Blood Cells, Urine 0-2 /hpf (0-2); Squamous Epithelial Cells Few /hpf (Few)
[2020-07-28 20:11] LABS: Amorphous Light (0-Heavy)
[2020-07-29 04:25] LABS: BASOPHILS ABSOLUTE AUTO 0.08 K/mm3 (0.00-0.23); BASOPHILS PERCENT AUTO 0 % (0-2); Hematocrit 27.4 % (33.0-51.0); Hemoglobin 9.1 g/dL (11.5-16.0); LYMPHOCYTES ABSOLUTE AUTO 2.58 K/mm3 (0.84-5.20); LYMPHOCYTES PERCENT AUTO 10 % (21-46); MONOCYTES PERCENT AUTO 8 % (4-13); Mean Corpuscular HGB 30.6 pg (26.0-34.0); Mean Corpuscular HGB Conc 33.2 g/dL (31.5-36.5); Mean Corpuscular Volume 92 fL (80-100); NRBC ABSOLUTE 0.02 K/mm3 (0.00-0.02); NRBC Auto 0.1 /100 WBC (0.0-0.2); RDW Coefficient Variation 13.2 % (11.7-14.2); RDW Standard Deviation 44.5 fL (35.1-46.3); Red Blood Cell Count 2.97 M/mm3 (3.80-5.20); White Blood Cell Count 27.11 K/mm3 (4.00-11.30)
[2020-07-29 04:42] LABS: EOSINOPHILS ABSOLUTE AUTO 0.01 K/mm3 (0.00-0.68); EOSINOPHILS PERCENT AUTO 0 % (0-6); IMMATURE GRAN ABSOLUTE AUTO 2.74 K/mm3 (0.00-0.10); IMMATURE GRAN PERCENT AUTO 10 % (0-1); NEUTROPHILS PERCENT AUTO 72 % (41-73)
[2020-07-29 04:43] LABS: Alanine Aminotransfer (ALT/SGP 34 U/L (12-78); Albumin, Blood 1.6 g/dL (3.4-5.0); Albumin/Globulin Ratio 0.3 (0.8-1.8); Alk Phos 154 U/L (50-136); Anion Gap 12 mmol/L (6-16); Aspartate Aminotrans (AST/SGOT 23 U/L (12-37); Bilirubin, Total 0.7 mg/dL (0.1-1.0); Blood Urea Nitrogen 102 mg/dL (8-24); Bun/Creatinine Ratio 56.4 (12.0-20.0); CO2, Blood 24 mmol/L (21-32); Chloride, Blood 92 mmol/L (98-108); Creatinine, Blood 1.81 mg/dL (0.40-1.00); Globulin, Blood 5.2 g/dL (2.2-4.0); Glomerular Filtration Rate 31 (60-); Glucose, Blood 441 mg/dL (70-99); Magnesium, Blood 1.9 mg/dL (1.6-2.4); Phosphorus, Blood 1.4 mg/dL (2.5-4.9); Potassium, Blood 3.4 mmol/L (3.5-5.5); Sodium, Blood 128 mmol/L (136-145); Total Protein, Blood 6.8 g/dL (6.4-8.2); Vancomycin, Random 24.3 ug/mL
[2020-07-29 04:44] LABS: Platelet Count 31 K/mm3 (150-400)
[2020-07-29 05:24] LABS: BAND PERCENT MAN 3 % (0-8); BASOPHILS PERCENT MAN 0 % (0-2); EOSINOPHILS PERCENT MAN 0 % (0-6); LYMPHOCYTES ABSOLUTE MAN 1.89 K/mm3 (0.84-5.20); LYMPHOCYTES PERCENT MAN 7 % (21-46); MONOCYTES ABSOLUTE MAN 2.16 K/mm3 (0.16-1.47); MONOCYTES PERCENT MAN 8 % (4-13); NEUTROPHILS ABSOLUTE MAN 22.77 K/mm3 (1.96-9.15); PROMYELOCYTE ABSOLUTE MAN 0.27 K/mm3 (0.00-0.00); PROMYELOCYTE PERCENT MAN 1 % (0-0); SEG NEUTROPHILS PERCENT MAN 81 % (41-73); TOTAL CELLS COUNTED 100
--- NOTE | 2020-07-29 06:53 | NUR ---
PATIENT IS CONFUSED TO TIME BUT IS AWARE OF SITUATION AND PLACE. SHE IS SLOW TO RESPOND AND SLIGHTLY LETHARGIC. HER LOW GRADE FEVER WAS RELIEVED BY ACETAMINOPHEN. PATIENT DOES NOT COMPLAIN OF PAIN OR SOB. HER IV WAS PULLED DURING THE SHFIT AND HAD TO BE REPLACED. SHE WAS EDUCATED ON THE NEED FOR THE CATHETER AND AGREED NOT TO PULL IT AGAIN. CALL LIGHT WITHIN REACH, BED LOWERED TO LOWEST POSITION. WILL CONTINUE TO MONITOR UNTIL END OF SHIFT
--- NOTE | 2020-07-29 08:30 | NUR ---
CARE ASSUMED REPORT RECEIVED, CARE ASSUMED AT 0700. PT EXTREMELY DROWSY, BUT ORIENTED OTHER THAN TO THE EXACT DAY. SLOW TO RESPOND. PT FORGETFUL REGARDING PLAN OF CARE. VITALS STABLE. BLOOD SUGAR ELEVATED. PT REPORTS FEELING LIKE IT IS HIGH AND DOES NOT HAVE AN APPETITE. SEE DR. BENJAMIN COMMUNICATION ORDER. SEE FULL SHIFT ASSESSMENT.
--- NOTE | 2020-07-29 09:10 | NUR ---
DR. BENJAMIN COMMUNICATION SPOKE WITH DR. BENJAMIN REGARDING BLOOD SUGAR. SEE NEW ORDERS. ALSO DISCUSSED FLUID BOLUS ORDERED UPON ADMISSION. PER DR. BENJAMIN, DO NO GIVE THE REST OF THE ML'S OF FLUID UNTIL DR. BAIG COMES BY FOR ASSESSMENT. VERIFY WITH DR. BAIG IF PT CAN TOLERATE BOLUS, AND HAVE DR. BAIG ADJUST FLUIDS.
--- NOTE | 2020-07-29 10:54 | NUR ---
CHEST PAIN PT CALLS STAFF INTO ROOM REPORTING 10/10 CHEST PAIN, STABBING AND PRESSURE, NEW ONSET. PT REPORTS NEVER HAVING THIS EXPERIENCE PREVIOUSLY. VITALS STABLE. EKG COMPLETE. BY THE TIME THE EKG IS COMPLETE, PT REPORTS PAIN HAS IMPROVED TO 5/10. SPOKE WITH DR. BENJAMIN. SEE NEW ORDERS.
[2020-07-29 16:33] LABS: Vancomycin, Trough 13.8 ug/mL (5.0-10.0)
--- NOTE | 2020-07-29 17:22 | NUR ---
DR. BAIG COMMUNICATION CALL PLACED TO DR. BAIG AT THIS TIME HE HAS NOT DONE HIS DAILY ROUNDS YET. DISCUSSED DR. BENJAMIN'S QUESTION FOR HIM REGARDING FLUID BOLUS. ORDER TO DC BOLUS BUT ADD FLUIDS AT 50 ML/HR. WILL DISCONTINUE CURRENT FLUIDS INFUSING AT 75 ML/HR. NEW ORDER FOR BLAIR FROM DR. BAIG TO BE UPDATED FROM ORDER FROM ER, WHICH WAS INSERTED IN THE EMERGENCY DEPARTMENT.
--- NOTE | 2020-07-29 18:03 | NUR ---
SUMMARY SINCE NITROGLYCERIN ADMINISTRATION, PT HAS HAD NO FURTHER EPISODES OF CHEST PAIN. VITALS CONTINUE TO BE STABLE. 02 SAT INTERMITTENTLY DROPS TO MID 80'S WHILE ASLEEP BUT BUMPS BACK UP WITHOUT INTERVENTION. PT DOES REPORT INTERMITTENT PAIN IN BACK. PT REPOSIONED AND QUICKLY FALLS BACK ASLEEP. SHANIA REPORTS 9/10 PAIN IN BACK AND WAS GIVEN TYLENOL. PT REPORTS, "I ALWAYS HAVE PAIN ALL OVER AND TYLENOL HELPS." PT HAS CONTINUED TO BE SLEEPY, AND FORGETFUL REGARDING PLAN OF CARE. SHE IS ORIENTED TO SELF, LOCATION AND WITHIN A FEW DAYS OF THE PRESENT DATE. PT IS PARTICULAR ABOUT CERTAIN ACTIONS, SUCH TAKING PILLS AND REPOSITIONING, BUT IF REPEATEDLY EDUCATED AND GIVEN BREAKS IS COOPERATIVE. PT HAS HAD CELL PHONE IN BED WITH HER MOST OF THE DAY AND HAS BEEN ON AND OFF OF THE PHONE. ADEQUATE OUTPUT FROM BLAIR CATHETER TODAY, SEE I/O FLOWSHEET. NO BOWEL MOVEMENT TODAY. PT HAS NOT EATEN ANY FOOD ALL DAY. PT REPORTS, "I NEVER EAT." WHEN ASKED TO EXPLAIN, PT REPORTS, "I JUST DON'T." PT ENCOURAGED BY MULTIPLE STUFF TO EAT BUT NOT WILLING TO DO SO TODAY. IV FLUIDS INFUSING PER ORDERS, SEE NOTE REGARDING CONVERSATION WITH DR. BAIG. BLOOD SUGARS ELEVATED ALL DAY. SEE LAB RESULTS, EMAR AND PREVIOUS NOTES. MANAGED PER HOSPITALIST DR. BENJAMIN. DRESSING CHANGED TO COCCYX AREA, SEE UPDATED WOUND ASSESSMENT. PT HAS NOT USED CALL LIGHT ONCE, THOUGH EDUCATED REPEATEDLY. INSTEAD, PT CALLS OUT FOR NURSE IN HALLWAY. MAKING NEEDS KNOWN.
[2020-07-30 06:25] LABS: Hematocrit 21.9 % (33.0-51.0); Hemoglobin 7.4 g/dL (11.5-16.0); Mean Corpuscular HGB Conc 33.8 g/dL (31.5-36.5); Mean Corpuscular Volume 92 fL (80-100); NRBC ABSOLUTE 0.03 K/mm3 (0.00-0.02); NRBC Auto 0.1 /100 WBC (0.0-0.2); RDW Coefficient Variation 13.4 % (11.7-14.2); RDW Standard Deviation 45.3 fL (35.1-46.3); Red Blood Cell Count 2.39 M/mm3 (3.80-5.20); White Blood Cell Count 30.39 K/mm3 (4.00-11.30)
[2020-07-30 06:30] LABS: Mean Platelet Volume 14.3 fL (9.1-12.4); Platelet Count 32 K/mm3 (150-400)
[2020-07-30 06:42] LABS: Albumin, Blood 1.4 g/dL (3.4-5.0); Albumin/Globulin Ratio 0.4 (0.8-1.8); Bilirubin, Total 0.5 mg/dL (0.1-1.0); Bun/Creatinine Ratio 68.8 (12.0-20.0); Calcium, Blood 8.8 mg/dL (8.5-10.1); Creatinine, Blood 1.38 mg/dL (0.40-1.00); Globulin, Blood 3.8 g/dL (2.2-4.0); Magnesium, Blood 2.1 mg/dL (1.6-2.4); Phosphorus, Blood 1.8 mg/dL (2.5-4.9); Potassium, Blood 3.3 mmol/L (3.5-5.5); Total Protein, Blood 5.2 g/dL (6.4-8.2)
[2020-07-30 07:02] LABS: BAND PERCENT MAN 3 % (0-8); BASOPHILS PERCENT MAN 0 % (0-2); EOSINOPHILS PERCENT MAN 0 % (0-6); LYMPHOCYTES ABSOLUTE MAN 2.73 K/mm3 (0.84-5.20); LYMPHOCYTES PERCENT MAN 9 % (21-46); METAMYELOCYTE ABSOLUTE MAN 1.82 K/mm3 (0.00-0.00); METAMYELOCYTE PERCENT MAN 6 % (0-0); MONOCYTES ABSOLUTE MAN 1.51 K/mm3 (0.16-1.47); MONOCYTES PERCENT MAN 5 % (4-13); MYELOCYTE ABSOLUTE MAN 0.91 K/mm3 (0.00-0.00); MYELOCYTE PERCENT MAN 3 % (0-0); SEG NEUTROPHILS PERCENT MAN 74 % (41-73); TOTAL CELLS COUNTED 100
--- NOTE | 2020-07-30 07:12 | NUR ---
ASSUMED PATIENT CARE. PATIENT SLEEPING COMFORTABLY IN BED, NO SIGNS OF ACUTE DISTRESS, WCTM.
--- NOTE | 2020-07-30 07:16 | NUR ---
PATIENT RESTFUL THROUGHOUT THE NIGHT. NO COMPLAINTS OF PAIN OR SOB. IVF INFUSING PER ORDER. SHE COMPLAINED OF PAIN WHEN TURNING WHICH WAS RELIEVED AFTERWORDS WITH ACETAMINOPHEN. VSS, CALL LIGHT WITHIN REACH, BED LOWERED TO LOWEST POSITION. WILL CONTINUE TO MONITOR UNTIL END OF SHIFT
[2020-07-30 16:46] LABS: Vancomycin, Trough 20.8 ug/mL (5.0-10.0)
--- NOTE | 2020-07-30 17:05 | NUR ---
NO ACUTE EVENTS THIS SHIFT. PATIENT LESS LETHARGIC THROUGH SHIFT, ABLE TO WORK WITH PT WITH ASSIST OF THIS RN AND ASSISTANT PROFESSOR OF SURGERY. PLATELET COUNT REMAINS LOW, FROM 31 TO 32 TODAY. TYLENOL WORKED WELL FOR PAIN CONTROL TODAY. PENDING PERMACATH REMOVAL GEN SURG CONSULT TO EVALUATE. IV HYDRATION CONTINUED AT 50 ML NS/HR.
[2020-07-31 04:24] LABS: Hematocrit 21.1 % (33.0-51.0); Mean Corpuscular HGB 31.3 pg (26.0-34.0); Mean Corpuscular HGB Conc 33.2 g/dL (31.5-36.5); Mean Corpuscular Volume 94 fL (80-100); NRBC ABSOLUTE 0.06 K/mm3 (0.00-0.02); NRBC Auto 0.1 /100 WBC (0.0-0.2); RDW Coefficient Variation 14.1 % (11.7-14.2); RDW Standard Deviation 48.1 fL (35.1-46.3); Red Blood Cell Count 2.24 M/mm3 (3.80-5.20); White Blood Cell Count 40.42 K/mm3 (4.00-11.30)
[2020-07-31 04:41] LABS: Albumin, Blood 1.4 g/dL (3.4-5.0); Albumin/Globulin Ratio 0.3 (0.8-1.8); Bilirubin, Total 0.6 mg/dL (0.1-1.0); Calcium, Blood 8.7 mg/dL (8.5-10.1); Creatinine, Blood 1.22 mg/dL (0.40-1.00); Globulin, Blood 4.5 g/dL (2.2-4.0); Phosphorus, Blood 2.2 mg/dL (2.5-4.9); Potassium, Blood 3.5 mmol/L (3.5-5.5); Total Protein, Blood 5.9 g/dL (6.4-8.2)
--- NOTE | 2020-07-31 04:46 | NUR ---
PT RESTED COMFORTABLY THROUGHOUT NIGHT. STILL SLOW TO RESPOND ROOM AIR TELE NSR BLAIR 450ML 0 BM PAIN X2 CALL LIGHT WITHIN REACH, BED IN LOWEST POSITION. WILL CONTINUE TO MONITOR.
[2020-07-31 05:30] LABS: Mean Platelet Volume 14.2 fL (9.1-12.4)
[2020-07-31 05:31] LABS: Platelet Count 23 K/mm3 (150-400)
[2020-07-31 05:52] LABS: BAND PERCENT MAN 5 % (0-8); BASOPHILS PERCENT MAN 0 % (0-2); EOSINOPHILS PERCENT MAN 1 % (0-6); LYMPHOCYTES ABSOLUTE MAN 1.21 K/mm3 (0.84-5.20); LYMPHOCYTES PERCENT MAN 3 % (21-46); METAMYELOCYTE ABSOLUTE MAN 2.02 K/mm3 (0.00-0.00); METAMYELOCYTE PERCENT MAN 5 % (0-0); MONOCYTES PERCENT MAN 0 % (4-13); MYELOCYTE PERCENT MAN 2 % (0-0); NEUTROPHILS ABSOLUTE MAN 35.97 K/mm3 (1.96-9.15); SEG NEUTROPHILS PERCENT MAN 84 % (41-73); TOTAL CELLS COUNTED 100
--- NOTE | 2020-07-31 07:07 | NUR ---
ASSUMED PATIENT CARE. PATIENT SLEEPING COMFORTABLY IN BED, NO SIGNS OF ACUTE DISTRESS, WCTM.
--- NOTE | 2020-07-31 17:29 | NUR ---
NO ACUTE EVENTS THIS SHIFT. DR. KEY REMOVED PERMACATH AT BEDSIDE THIS SHIFT, PLAN FOR CONTINUED IV ABX AND MONITORING OF LOW PLATELETS. PLAN IS FOR REPEAT BLOOD CULTURE TOMORROW NOW THAT LIKELY INFECTION SOURCE HAS BEEN REMOVED. PATIENT RECEIVED X1 UNIT OF RBCs THIS SHIFT, TOLERATED WELL. PATIENT COMPLAINED OF SORENESS, WELL CONTROLLED WITH TYLENOL. DR. BAIG FOLLOWING FOR KIDNEY FUNCTION MANAGEMENT, SHOWS IMPROVEMENT AND NO ORDERS FOR HD GIVEN.
--- NOTE | 2020-08-01 05:32 | NUR ---
SHIFT SUMMARY: PT A&O X4. OCC CONFUSION AFTER WAKING UP. LOW GRADE TEMP THIS SHIFT. RESPIRATORY RATE 20-24. AUDIBLE WHEEZES NOTED. PT C/O SOB. O2 STABLE ON RA. PT C/O BEING SORE ON BOTTOM. PAIN RELIEVED BY REPOSITIONING. CBG 164, MEDICATED WITH LANTUS AND HUMALOG PER SS. BLAIR DRAINING DARK YELLOW URINE. PLAN FOR BLOOD CULTURES TODAY. IV ABX INFUSING PER ORDERS.
[2020-08-01 06:05] LABS: Hematocrit 22.7 % (33.0-51.0); Hemoglobin 7.5 g/dL (11.5-16.0); Mean Corpuscular HGB 30.5 pg (26.0-34.0); Mean Corpuscular Volume 92 fL (80-100); NRBC ABSOLUTE 0.17 K/mm3 (0.00-0.02); NRBC Auto 0.4 /100 WBC (0.0-0.2); RDW Coefficient Variation 15.6 % (11.7-14.2); RDW Standard Deviation 51.9 fL (35.1-46.3); Red Blood Cell Count 2.46 M/mm3 (3.80-5.20); White Blood Cell Count 41.86 K/mm3 (4.00-11.30)
[2020-08-01 06:12] LABS: Platelet Count 19 K/mm3 (150-400)
[2020-08-01 06:15] LABS: Albumin, Blood 1.4 g/dL (3.4-5.0); Anion Gap 5 mmol/L (6-16); Blood Urea Nitrogen 46 mg/dL (8-24); CO2, Blood 27 mmol/L (21-32); Calcium, Blood 8.9 mg/dL (8.5-10.1); Chloride, Blood 110 mmol/L (98-108); Creatinine, Blood 1.15 mg/dL (0.40-1.00); Glomerular Filtration Rate 52 (60-); Glucose, Blood 144 mg/dL (70-99); Magnesium, Blood 2.1 mg/dL (1.6-2.4); Phosphorus, Blood 2.4 mg/dL (2.5-4.9); Potassium, Blood 3.5 mmol/L (3.5-5.5); Sodium, Blood 142 mmol/L (136-145)
[2020-08-01 06:37] LABS: BAND PERCENT MAN 8 % (0-8); BASOPHILS PERCENT MAN 0 % (0-2); EOSINOPHILS PERCENT MAN 0 % (0-6); LYMPHOCYTES ABSOLUTE MAN 2.09 K/mm3 (0.84-5.20); LYMPHOCYTES PERCENT MAN 5 % (21-46); METAMYELOCYTE ABSOLUTE MAN 0.83 K/mm3 (0.00-0.00); METAMYELOCYTE PERCENT MAN 2 % (0-0); MONOCYTES ABSOLUTE MAN 0.83 K/mm3 (0.16-1.47); MONOCYTES PERCENT MAN 2 % (4-13); MYELOCYTE ABSOLUTE MAN 2.51 K/mm3 (0.00-0.00); MYELOCYTE PERCENT MAN 6 % (0-0); NEUTROPHILS ABSOLUTE MAN 35.16 K/mm3 (1.96-9.15); PROMYELOCYTE ABSOLUTE MAN 0.41 K/mm3 (0.00-0.00); PROMYELOCYTE PERCENT MAN 1 % (0-0); SEG NEUTROPHILS PERCENT MAN 76 % (41-73); TOTAL CELLS COUNTED 100
--- NOTE | 2020-08-01 07:23 | NUR ---
ASSUMED PATIENT CARE. PATIENT SLEEPING COMFORTABLY IN BED, NO SIGNS OF ACUTE DISTRESS, WCTM.
[2020-08-01 14:34] LABS: Hematocrit 26.1 % (33.0-51.0); Hemoglobin 8.5 g/dL (11.5-16.0); Mean Corpuscular HGB 30.2 pg (26.0-34.0); Mean Corpuscular HGB Conc 32.6 g/dL (31.5-36.5); Mean Corpuscular Volume 93 fL (80-100); NRBC ABSOLUTE 0.17 K/mm3 (0.00-0.02); NRBC Auto 0.4 /100 WBC (0.0-0.2); RDW Standard Deviation 54.2 fL (35.1-46.3); Red Blood Cell Count 2.81 M/mm3 (3.80-5.20); White Blood Cell Count 39.13 K/mm3 (4.00-11.30)
[2020-08-01 14:43] LABS: Platelet Count 44 K/mm3 (150-400)
[2020-08-01 16:16] LABS: BAND PERCENT MAN 12 % (0-8); BASOPHILS PERCENT MAN 0 % (0-2); EOSINOPHILS PERCENT MAN 0 % (0-6); LYMPHOCYTES ABSOLUTE MAN 2.73 K/mm3 (0.84-5.20); LYMPHOCYTES PERCENT MAN 7 % (21-46); METAMYELOCYTE ABSOLUTE MAN 2.34 K/mm3 (0.00-0.00); METAMYELOCYTE PERCENT MAN 6 % (0-0); MONOCYTES ABSOLUTE MAN 1.17 K/mm3 (0.16-1.47); MONOCYTES PERCENT MAN 3 % (4-13); MYELOCYTE ABSOLUTE MAN 1.17 K/mm3 (0.00-0.00); MYELOCYTE PERCENT MAN 3 % (0-0); NEUTROPHILS ABSOLUTE MAN 31.69 K/mm3 (1.96-9.15); SEG NEUTROPHILS PERCENT MAN 69 % (41-73); TOTAL CELLS COUNTED 100
--- NOTE | 2020-08-01 17:17 | NUR ---
Pt assessment struggling with fatigue and discomfort pt respirations labored. States her arms hurt denies nausea or discomfort. Review with nursing pt needs and possible plan of care. Pt struggling with decision making and wavering on her code satus. At this time whe wavers back to full code so we will leave that as is. air export logistics manager contacted family pt need support with decision making she is very frail and ill. Will review prognosis with phsyciain.
--- NOTE | 2020-08-01 17:49 | NUR ---
NO ACUTE EVENTS THIS SHIFT. DR. MANLEY CONSULTED TODAY, ECHO DONE, LIKELY ENDOCARDITIS. DR. OVIEDO ALSO CONSULTED FOR INFECTIOUS DISEASE. PATIENT RECEIVED X1 UNIT RBCs AND X1 PLATELETS TODAY. PLATELETS IMPROVED FROM [address] MANLEY AND DR. DELGADO AGREED THAT FOR TREATMENT OF ENDOCARDITIS PATIENT WILL LIKELY NEED TRANSFER TO HIGHER LEVEL OF CARE FACILITY. PATIENT DOES NOT WANT TO FOLLOW THIS LINE OF TREATMENT AT THIS TIME. PATIENT DISCUSSED CODE STATUS WITH DR. DELGADO THIS SHIFT, ENDORSED POSSIBLE DESIRE TO CHANGE TO DNR STATUS. POLST FORM DISCUSSED BY PATIENT WITH THIS RN, PATIENT NOT CERTAIN THAT SHE DOES NOT WANT CPR. TREV RN WITH PALLIATIVE VISITED WITH PATIENT, PATIENT WOULD LIKE TO BE FULL CODE AT THIS TIME. TREV TO FOLLOW UP WITH PATIENT ON DESIRED COURSE OF TREATMENT, DESIRED OUTCOMES, AND GOALS. PATIENT PAINFUL AND ACHEY THIS SHIFT T/O, NORCO AND TYLENOL GIVEN WITH MODERATE RELIEF. GOT IN TOUCH WITH PATIENT'S SISTER, DR. DELGADO SPOKE WITH SISTER WHO ENDORSED THAT PATIENT UP TO THIS POINT HAS MADE ALL HER OWN MEDICAL DECISIONS. PATIENT'S SISTERS WILL VISIT PATIENT AT BEDSIDE TOMORROW FOR SUPPORT AND FAMILY CONFERENCE.
--- NOTE | 2020-08-02 00:07 | NUR ---
CALLED DR. HOU REGARGIND 0000 SC DOSE OF HEPARIN; PLATELET COUNT OF 44 AFTER PLT TRANSFUSION. ORDER TO D/C HEPARIN AND CONTINUE SCDS.
[2020-08-02 04:10] LABS: Hematocrit 26.5 % (33.0-51.0); Hemoglobin 8.4 g/dL (11.5-16.0); Mean Corpuscular HGB 30.1 pg (26.0-34.0); Mean Corpuscular HGB Conc 31.7 g/dL (31.5-36.5); Mean Corpuscular Volume 95 fL (80-100); NRBC ABSOLUTE 0.38 K/mm3 (0.00-0.02); NRBC Auto 1.1 /100 WBC (0.0-0.2); RDW Coefficient Variation 16.4 % (11.7-14.2); RDW Standard Deviation 55.7 fL (35.1-46.3); Red Blood Cell Count 2.79 M/mm3 (3.80-5.20); White Blood Cell Count 35.24 K/mm3 (4.00-11.30)
--- NOTE | 2020-08-02 04:10 | NUR ---
ASSUMED CARE OF PATIENT AT APPROXIMATELY 1905 FROM LG Jackson RN. PATIENT ALERT AND ORIENTED; SLOW TO RESPOND; FLAT; FEARFUL AT TIMES. PATIENT WEAK; REPORTS UNABLE TO LIFT ARM DUE TO ARMS FEELING HEAVY; MOVED FROM PCU5 TO PCU4 FOR CEILING LIFT. PATIENT DENIES PAIN, NUMBNESS, TINGLING, DIZZINESS OR NAUSEA. NSR ON TELE; OXGYEN SATURATION ABOVE 90% ON ROOM AIR. PIV X2; IVF INFUSING PER ORDER. URINARY CATH DRAINING PER ORDER. PATIENT CURRENTLY RESTING IN BED; CALL LIGHT IN REACH; BED IN LOWEST POSISTION; BED ALARM ON; WILL CONTINUE TO MONITOR AND ASSESS UNTIL END OF SHIFT.
[2020-08-02 04:17] LABS: Mean Platelet Volume 12.2 fL (9.1-12.4); Platelet Count 41 K/mm3 (150-400)
[2020-08-02 04:33] LABS: Albumin, Blood 1.5 g/dL (3.4-5.0); Anion Gap 5 mmol/L (6-16); BAND PERCENT MAN 12 % (0-8); BASOPHILS PERCENT MAN 0 % (0-2); Blood Urea Nitrogen 28 mg/dL (8-24); Bun/Creatinine Ratio 27.5 (12.0-20.0); CO2, Blood 24 mmol/L (21-32); Calcium, Blood 8.8 mg/dL (8.5-10.1); Chloride, Blood 110 mmol/L (98-108); Creatinine, Blood 1.02 mg/dL (0.40-1.00); EOSINOPHILS ABSOLUTE MAN 0.35 K/mm3 (0.00-0.68); EOSINOPHILS PERCENT MAN 1 % (0-6); Glomerular Filtration Rate 59 (60-); Glucose, Blood 152 mg/dL (70-99); LYMPHOCYTES ABSOLUTE MAN 2.11 K/mm3 (0.84-5.20); LYMPHOCYTES PERCENT MAN 6 % (21-46); METAMYELOCYTE ABSOLUTE MAN 2.11 K/mm3 (0.00-0.00); METAMYELOCYTE PERCENT MAN 6 % (0-0); MONOCYTES ABSOLUTE MAN 1.05 K/mm3 (0.16-1.47); MONOCYTES PERCENT MAN 3 % (4-13); MYELOCYTE PERCENT MAN 2 % (0-0); Magnesium, Blood 1.9 mg/dL (1.6-2.4); NEUTROPHILS ABSOLUTE MAN 28.89 K/mm3 (1.96-9.15); SEG NEUTROPHILS PERCENT MAN 70 % (41-73); Sodium, Blood 139 mmol/L (136-145); TOTAL CELLS COUNTED 100
--- NOTE | 2020-08-02 06:48 | NUR ---
PATIENT SLEPT ABOUT SEVEN HOURS LAST NIGHT; ANXIOUS AND CALLING OUT AT TIMES. VSS. WILL CONTINUE TO MONITOR AND ASSESS UNTIL END OF SHIFT.
--- NOTE | 2020-08-02 08:00 | NUR ---
pt laying in bed awake a/ox3, slow, simple, she is having a bed bath at this time, lungs are very dim t/o, resp even and unlabored, no cough noted, hrr, tele in place running sr per monitor, see strip, 2+ edema noted, but this may be pts habitus, ppp+1, cap refill <3sec, vs stable, afebrile, iv sites are clear and patent, btx 4, abd large soft nontender, mays cath draining clear yellow urine, skin has some bruising otherwise c/d/i, moves arms, wont move legs, assist with turning a bit, geovanny, call light in reach.
--- NOTE | 2020-08-02 13:52 | NUR ---
Nursing reports pt who requested to be a DNR/DNI with no further work ups yesterday is wanting to seek treatment today. However, pt continues to be fearful and tells this radio script writer this afternoon that she just wants to go home and not do anything more. Explained to her that if she declines treatments that she will pass away from an infection. She states "So be it." Asked her the same question a different way to clarify her change of plans and she wasn't able to give this radio script writer the same answer. Her eye contact is poor and she appears very flat. She appears to be alert and oriented, however it is difficult to determine if she grasps the severity of her illness and the repurcussions of her choices. Pt has a history of bipolar disorder. It is possible that her behavior today is her baseline. Nursing reports pt is refusing insulin this afternoon. Ayaka reports that her sister is difficult to get a hold of and that she doesn't see her very often. Attempts have been made by staff without success in contacting her sister, Tracie. Spoke with Brenda, pt's caregiver the last two years. Brenda states that she was updated yesterday and is aware of the possible transfer to [facility], blood transfusions and the echo which showed an infection. Brenda reports that Ayaka normally wavers back and forth with decision making and that she lacks motivation to accomplish tasks. "Unless you push her hard to get up out of bed she will just stay in bed." Brenda reports that family is normally difficult to contact and she states to her knowledge family does not normally have much interaction with Ayaka. Brenda states pt usually makes her own decisions, there is no POA for Ayaka that she is aware of. Brenda expresses concern that Ayaka is "Mentally not her normal self." Brenda states her concern for Ayaka is that she may not understand that options and choices that she has and the consequences from those choices. Pt may benefit from a mini mental exam to determine decisional making capacity if family does not become involved and help with decision making. Spoke with nursing and Dr. Hartman who agreed to have this radio script writer place an order for ST for a mini mental exam. Current plan is for a KELLY to happen later this afternoon unless there is a change of plans. PC to continue to follow.
--- NOTE | 2020-08-02 18:05 | NUR ---
pt became upset at one point today until her sisters came in to visit, she calmed after they came in. she is choosing to procede with having a josiah and being transferred to [facility], this will be done in am, she refuses some care, and medicines. refuses to turn most of the time, no further changes this shift. call light in reach.
--- NOTE | 2020-08-03 02:07 | NUR ---
ASSUMED CARE OF PATIENT AT APPROXIMATELY 1910 FROM BELEN Galicia RN. PATIENT ALERT AND ORIENTED; SLOW TO RESPOND; FLAT; FEARFUL AT TIMES. PATIENT WEAK; REPORTS UNABLE TO LIFT ARM DUE TO ARMS FEELING HEAVY; Q2H TURNS W/ CEILING LIFT; REFUSING REPOSISTIONING AT TIMES. PATIENT DENIES PAIN, NUMBNESS, TINGLING, DIZZINESS OR NAUSEA. NSR ON TELE; OXGYEN SATURATION ABOVE 90% ON ROOM AIR. PIV X2 S/L. URINARY CATH DRAINING PER ORDER. NPO AT MIDNIGHT FOR KELLY THIS MORNING. PATIENT CURRENTLY RESTING IN BED; CALL LIGHT IN REACH; BED IN LOWEST POSISTION; BED ALARM ON; WILL CONTINUE TO MONITOR AND ASSESS UNTIL END OF SHIFT.
[2020-08-03 04:21] LABS: Hematocrit 25.7 % (33.0-51.0); Hemoglobin 8.2 g/dL (11.5-16.0); Mean Corpuscular HGB 29.9 pg (26.0-34.0); Mean Corpuscular HGB Conc 31.9 g/dL (31.5-36.5); Mean Corpuscular Volume 94 fL (80-100); Mean Platelet Volume 12.6 fL (9.1-12.4); NRBC ABSOLUTE 0.16 K/mm3 (0.00-0.02); NRBC Auto 0.7 /100 WBC (0.0-0.2); Platelet Count 58 K/mm3 (150-400); RDW Coefficient Variation 16.2 % (11.7-14.2); RDW Standard Deviation 54.9 fL (35.1-46.3); Red Blood Cell Count 2.74 M/mm3 (3.80-5.20); White Blood Cell Count 23.32 K/mm3 (4.00-11.30)
[2020-08-03 04:44] LABS: Albumin, Blood 1.5 g/dL (3.4-5.0); Anion Gap 5 mmol/L (6-16); Blood Urea Nitrogen 21 mg/dL (8-24); Bun/Creatinine Ratio 21.3 (12.0-20.0); CO2, Blood 25 mmol/L (21-32); Calcium, Blood 8.7 mg/dL (8.5-10.1); Chloride, Blood 106 mmol/L (98-108); Creatinine, Blood 0.99 mg/dL (0.40-1.00); Glomerular Filtration Rate >60 (60-); Glucose, Blood 187 mg/dL (70-99); Magnesium, Blood 1.8 mg/dL (1.6-2.4); Phosphorus, Blood 2.5 mg/dL (2.5-4.9); Potassium, Blood 4.3 mmol/L (3.5-5.5); Sodium, Blood 136 mmol/L (136-145)
[2020-08-03 04:48] LABS: BAND PERCENT MAN 6 % (0-8); BASOPHILS PERCENT MAN 0 % (0-2); EOSINOPHILS PERCENT MAN 0 % (0-6); LYMPHOCYTES ABSOLUTE MAN 1.39 K/mm3 (0.84-5.20); LYMPHOCYTES PERCENT MAN 6 % (21-46); METAMYELOCYTE ABSOLUTE MAN 1.39 K/mm3 (0.00-0.00); METAMYELOCYTE PERCENT MAN 6 % (0-0); MONOCYTES ABSOLUTE MAN 1.39 K/mm3 (0.16-1.47); MONOCYTES PERCENT MAN 6 % (4-13); MYELOCYTE ABSOLUTE MAN 0.93 K/mm3 (0.00-0.00); MYELOCYTE PERCENT MAN 4 % (0-0); NEUTROPHILS ABSOLUTE MAN 18.18 K/mm3 (1.96-9.15); SEG NEUTROPHILS PERCENT MAN 72 % (41-73); TOTAL CELLS COUNTED 100
--- NOTE | 2020-08-03 08:14 | NUR ---
Pt is awake, sisters are both at the bedside. Blood cultures being done at this time; EKG will be done following this. The pt is responsive, slowly, to questions. She at times requires prompting to give her birthdate and other pertinent information. Able to answer simple questions.
--- NOTE | 2020-08-03 09:54 | NUR ---
0845 [facility] Dari Colon[facility], that the KELLY with anesthesia would be done in PCU. I informed her that anesthesia cannot be done in PCU, but would have to be done either in the OR or the heart center. I asked her to call Peggy Shoemaker, our clinical coordinator. 0855 Dari Colon arrived with anesthesia cart to room PCU 4, stating that Jamir Cason had said that we were okay to do anesthesia in PCU. Peggy Shoemaker and I both explained to Dari that policy dictates that anesthesia cannot be done in PCU, only heart center or the OR. Dari took the cart away and returned around 0900 to take the pt via stretcher to the [facility]. 09 Dari returned the pt to the room on the stretcher, states that the procedure is cancelled. Dr. Nguyen arrived shortly afterwards, and states that she spoke with Dr. Amezquita; the KELLY will be later today at 1300 or 1600, depending on availability of anesthesiologist. Palliative care called per DR. Nguyen's request to review POLST form with sisters and patient at this time.
--- NOTE | 2020-08-03 10:04 | NUR ---
0845 PATIENT BROUGHT TO THE SIDE PIECE COVERER AND PREPARED FOR KELLY PROCEDURE. RN AND ECHO AT THE BEDSIDE. 09 PROCEDURE WAS RESCHEDULED PER ANESTHESIA/ DR MANLEY. 0935 PATIENT TAKEN BACK TO PCU#4 AND WILL KEEP PATIENT NPO FOR PROCEDURE LATER TODAY. ALL TOLERATED WELL BY PATIENT, FAMILY UPDATED AT THE BEDSIDE
--- NOTE | 2020-08-03 14:28 | NUR ---
The pt was taken to the heart center for the KELLY with anesthesia.
--- NOTE | 2020-08-03 14:37 | NUR ---
1415 PATIENT BROUGHT TO THE WRIST LINER FOR KELLY AND PREPARED. ANESTHESIA PRESENT, DR. BARAHONA. AWAITING DR. MCCULLOUGH'S ARRIVAL. MONITOR, IV, O2 ALL AVAILABLE AND IN USE.
--- NOTE | 2020-08-03 15:13 | NUR ---
1513 PATIENT STATED TO ALL TEAM MEMBERS THAT "I DO NOT WAHT TO DO THIS". DR. MCCULLOUGH SPOKE WITH DR. MANLEY VIA PHONE AND FAMILY AT THE BEDSIDE, AND WE WILL HONOR THE PATIENTS' WISHES AND CANCELL THIS PROCEDURE AT THIS TIME. PATIENT PROCEDURE STOPPED AND PATIENT TRANSPORTED BACK TO PCU#4. RIANNAEITN WAS NEVER SEDATED OR THROAT NUMBED
--- NOTE | 2020-08-03 15:43 | NUR ---
Egg crate mattress put on bed as pt was c/o pain in buttocks before procedure, despite repositioning with multiple pillows. No bariatric bed available at this time. Pt returned from the research laboratory specialist; report from Dari Colon is that the pt refused the procedure. Pt is being given food and water at this time by the JOINT MACHINE OPERATOR.
--- NOTE | 2020-08-03 18:35 | NUR ---
summary The pt was taken at 0845 for KELLY in the heart center, but returned without having had the procedure done about 45 minutes later, which I was told was due to lack of anesthesiologist availability. She remained NPO for the rest of the day, which unfortunately in her estimation was catastrophic and she became agitated and anxious. She was given ativan IV to help calm her, but she could talk about nothing except having water to drink and something to eat the rest of the morning and early afternoon. She seemed to be so upset about not eating or drinking that she wanted to "just go home" and "not have the procedure". However, with her sisters at bedside convincing and explaining the benefits of the KELLY to her, as well as a visit from Dr. Hartman, the pt became less anxious and agitated. She was taken later in the afternoon for the KELLY but I was told she refused the procedure once in the heart center. She was returned to her room, where her most pressing concern was to have something to drink. This evening she has no complaints and is asking for ice water. She is given ice chips and popsicle this evening to slow down the quantity of fluid which she takes in. She did not eat dinner except for some applesauce. NO complaints, no concerns voiced at this time. Her sisters left the hospital just after the pt returned from the heart center after refusing the procedure. Dr. Hartman was called and notified that the pt had refused the procedure, and she has ordered an ethics consult to help guide the situation.
--- NOTE | 2020-08-03 18:59 | NUR ---
Called to mwwt with pt sisiter regarding advance care planning. Pt sister willing to be decison maker for medical care. Reivew of pt neeeds with rn intensive care unit she has a continuous pillowcase cutter and a payee but no decions maker for medical. Pt has wavered over decisions. Reveiw of Ot cognative and exam and review of pt with family. She is alsow struggling with fatigue and pain and anexiety aat being in hospital. Calling more for her caregivers. We reviewed code status they are sticking with full code and tratment. Sister states family would want it and so would son and pt expresses this wish in past. We stated a advanc directive and will finish after testing and family discussion.
[2020-08-03 21:24] LABS: Vancomycin, Trough 15.8 ug/mL (5.0-10.0)
[2020-08-04 04:43] LABS: Albumin, Blood 1.4 g/dL (3.4-5.0); Anion Gap 6 mmol/L (6-16); Blood Urea Nitrogen 21 mg/dL (8-24); Bun/Creatinine Ratio 21.7 (12.0-20.0); CO2, Blood 27 mmol/L (21-32); Calcium, Blood 8.6 mg/dL (8.5-10.1); Chloride, Blood 102 mmol/L (98-108); Creatinine, Blood 0.97 mg/dL (0.40-1.00); Glomerular Filtration Rate >60 (60-); Glucose, Blood 153 mg/dL (70-99); Magnesium, Blood 1.8 mg/dL (1.6-2.4); Phosphorus, Blood 2.9 mg/dL (2.5-4.9); Potassium, Blood 4.4 mmol/L (3.5-5.5); Sodium, Blood 135 mmol/L (136-145)
--- NOTE | 2020-08-04 06:17 | NUR ---
SHIFT SUMMARY PT SLEPT T/O NIGHT. VS STABLE. PT REPORTS SEVERE PAIN IN SACRAL AREA. REPOSITIONING Q 2 AND NEEDED FOR PAIN RELIEF. PAIN MEDICATIONS GIVEN PER EMAR. PT REPORTS PAIN RELIEF WITH THESE INTERVENTIONS. PT HAS BLAIR TO GRAVITY DRAIN. PT REMOVED DRESSING ON CHEST WHERE INFECTED PERMCATH WAS REMOVED. NO DRAINAGE OR BLEEDING NOTED. O2 SATURATION ABOVE 92% ON RA. PT REPORTS NO CP OR PRESSURE. WILL CONTINUE TO MONITOR UNTIL REPORT GIVEN TO ONCOMING DAYSHIFT RN.
[2020-08-04 17:02] LABS: BASOPHILS ABSOLUTE AUTO 0.02 K/mm3 (0.00-0.23); BASOPHILS PERCENT AUTO 0 % (0-2); EOSINOPHILS ABSOLUTE AUTO 0.06 K/mm3 (0.00-0.68); EOSINOPHILS PERCENT AUTO 1 % (0-6); Hematocrit 26.3 % (33.0-51.0); Hemoglobin 8.4 g/dL (11.5-16.0); IMMATURE GRAN ABSOLUTE AUTO 0.54 K/mm3 (0.00-0.10); IMMATURE GRAN PERCENT AUTO 4 % (0-1); LYMPHOCYTES ABSOLUTE AUTO 1.48 K/mm3 (0.84-5.20); LYMPHOCYTES PERCENT AUTO 11 % (21-46); MONOCYTES ABSOLUTE AUTO 0.86 K/mm3 (0.16-1.47); MONOCYTES PERCENT AUTO 7 % (4-13); Mean Corpuscular HGB 29.6 pg (26.0-34.0); Mean Corpuscular HGB Conc 31.9 g/dL (31.5-36.5); Mean Corpuscular Volume 93 fL (80-100); Mean Platelet Volume 11.5 fL (9.1-12.4); NEUTROPHILS ABSOLUTE AUTO 10.18 K/mm3 (1.96-9.15); NEUTROPHILS PERCENT AUTO 77 % (41-73); Platelet Count 92 K/mm3 (150-400); RDW Coefficient Variation 15.3 % (11.7-14.2); RDW Standard Deviation 51.5 fL (35.1-46.3); Red Blood Cell Count 2.84 M/mm3 (3.80-5.20); White Blood Cell Count 13.14 K/mm3 (4.00-11.30)
--- NOTE | 2020-08-04 17:37 | NUR ---
SHIFT SUMMARY PT A&Ox2; LABILE BUT COOPERATIVE WITH CARE. PT REPORTS LOWER BACK PAIN; MEDICATED x1. PT RESTING IN BED DURING SHIFT; REPOSITIONED Q2, OFTER PT ALLOWED. PT DNEIES CHEST PAIN, SOB, NAUSEA AND DIZZINESS. PT RECEIVING IV BUMEX AND IV ANTIBIOTICS. POWER GLIDE PLACED THIS AFTERNOON; LAB DRAWN AND SENT TO LAB. VSS. NO OTHER ACUTE CHANGES NOTED DURING SHIFT. WILL CONTINUE TO MONITOR UNTIL REPORT GIVEN TO ONCOMING RN.
[2020-08-04 22:08] LABS: Vancomycin, Trough 16.4 ug/mL (5.0-10.0)
--- NOTE | 2020-08-04 23:10 | NUR ---
UPDATE PT REPORTS PAIN RELIEF WITH REPOSITIONING. PT RESTING.
--- NOTE | 2020-08-05 05:53 | NUR ---
SHIFT SUMMARY PT SLEPT T/O SHIFT. PT WOULD WAKE D/T PAIN IN SACRAL AREA AND FEET. REPOSITIONED Q 2 HRS AND NEEDED FOR PAIN RELIEF. PAIN MEDICATIONS GIVEN PER EMAR. PT REPORTS PAIN RELIEF WITH THESE INTERVENTIONS. PT WOULD LIKE TO SPEAK TO PHYSICIAN ABOUT AGREEING TO THE KELLY PROCEDURE, WILL INFORM DAYSHIFT RN OF THIS CHANGE. PT REPORTS NO CHEST PAIN OR PRESSURE. VS STABLE. WILL CONTINUE TO MONITOR UNTIL REPORT GIVEN TO DAYSHIFT RN.
--- NOTE | 2020-08-05 19:24 | NUR ---
SHIFT SUMMARY PT A&Ox2-3; ANXIOUS AND IRRITABLE AT TIMES. PT REPORTS PAIN TO LOWER BACK AND BLE; MEDICATED x1 PER EMAR. PT UP IN [place] FOR LUNCH VIA LIFT; PT REPORTS FEELING DIZZY AFTER LUNCH, USED LIFT TO GET PT BACK TO BED AND PT REPORTS DIZZINESS RESOLVED; VSS; NOTIFIED DR DELGADO; NO NEW ORDERS. PT REPORTS "MY HEART HURTS" THIS AFTENROON; STATES SHARP PAIN WITH INSPIRATION AND WORSENS WHEN HOB ELEVATED; VSS; EKG COMPLETED; NOTIFIED DR DELGADO; NO NEW ORDERS. PT DENIES NAUSEA T/O SHIFT; HOWEVER RFUSES DINNER THIS EVENING. BLAIR REMOVED THIS AFTERNOON. EDUCATED PT ON BOWEL CARE; NO BM NOTED SINCE ADMISSION; PT STATES SHE ONLY HAS A BM WEEKLY; OFFERED SUPPOSITORY WHICH PT DECLINED AT THIS TIME. VSS. NO OTHER ACUTE CHANGES NOTED. REPORT GIVEN TO ONCOMING RN.
[2020-08-05 20:57] LABS: Glomerular Filtration Rate >60 (60-); Potassium, Blood 3.9 mmol/L (3.5-5.5)
--- NOTE | 2020-08-05 21:10 | NUR ---
DR BAIG CALLED DR BAIG CALLED AND NOTIFIED OF REQUESTED LAB RESULTS. NO ORDERS RECIEVED AT THIS TIME.
--- NOTE | 2020-08-05 22:08 | NUR ---
UPDATE PATIENT PLEASENT AND COOPERATIVE TONIGHT. PATIENT RESTING IN BED AND STATING THAT SHE NAPPED TODAY SO SHE WAS NOT SURE IF SHE WAS GOING TO BE ABLE TO SLEEP MUCH TONIGHT. PATIENT REFUSED SUPPOSITORY AND REPORTS IT IS NOT ABNORMAL FOR HER TO GO THIS LONG WITHOUT HAVING A BM. PATIENT HAS BED ASIGNED ON MEDICAL FLOOR, REPORT GLENN TO CARRIE MOSES AT THIS TIME.
--- NOTE | 2020-08-05 22:23 | NUR ---
TRANSFER NOTE PATIENT TRANSFERED OUT TO ROOM 344 AT THIS TIME. ALL BELONGINGS GATHERED AND SENT WITH PATIENT.
--- NOTE | 2020-08-06 00:22 | NUR ---
08/05/20 7460 PT C/O "BUTT" AND LOW BACK DISCOMFORT AT LEVEL "10". MEDICATED PER JAN. CALL CADET WITHIN REACH AND SHOWN HOW TO USE IT. PT VERBALIZES UNDERSTANDING.
--- NOTE | 2020-08-06 06:43 | NUR ---
08/06/20 0630 C/O BUTT AND BACK DISCOMFORT. MEDICATED PER JAN. PT HAD BLAIR DC'D LAST EVENING AND WAS INCONTINENT OF URINE ONCE--VERY LARG AMT. PT WAS REPOSITIONED EVEN WHEN SHE DID NOT WANT TO MOVE. RN STRESSED IMPORTANCE OF MOVING. VITALS STABLE.
[2020-08-06 10:02] LABS: Hematocrit 26.5 % (33.0-51.0); Hemoglobin 8.1 g/dL (11.5-16.0)
[2020-08-06 10:19] LABS: Albumin, Blood 1.5 g/dL (3.4-5.0); Anion Gap 7 mmol/L (6-16); Blood Urea Nitrogen 26 mg/dL (8-24); Bun/Creatinine Ratio 33.1 (12.0-20.0); CO2, Blood 26 mmol/L (21-32); Calcium, Blood 8.6 mg/dL (8.5-10.1); Chloride, Blood 103 mmol/L (98-108); Creatinine, Blood 0.79 mg/dL (0.40-1.00); Glomerular Filtration Rate >60 (60-); Glucose, Blood 130 mg/dL (70-99); Phosphorus, Blood 2.7 mg/dL (2.5-4.9); Potassium, Blood 3.7 mmol/L (3.5-5.5); Sodium, Blood 136 mmol/L (136-145)
--- NOTE | 2020-08-06 18:19 | NUR ---
SHIFT SUMMARY PT WORKED WITH PT/OT IN THE BED THIS SHIFT. PT IS A 3 PERSON TURN. PT INCONTINENT OF URINE. PT RECEIVED A BED BATH THIS AFTERNOON. PT HAS A RASH TO BACK OF ARMS AND AND TO ANKLES WHERE SOCKS WERE. PT REPORTS NO ITCHING OR PAIN WITH THE RASH. RASH APPEARS TO BE WHERE PT WAS HOT WITH SOCKS AND LINENS. WILL MONITOR. NO ACUTE CHANGES THIS SHIFT. CALL LIGHT IN REACH. WILL CONTINUE TO MONITOR.
--- NOTE | 2020-08-06 22:11 | NUR ---
08/06/20 2140 PT refused suppository this evening. NO BM RECORDED SINCE ADMIT.
[2020-08-07 05:46] LABS: BASOPHILS ABSOLUTE AUTO 0.04 K/mm3 (0.00-0.23); BASOPHILS PERCENT AUTO 1 % (0-2); EOSINOPHILS PERCENT AUTO 1 % (0-6); Hematocrit 25.7 % (33.0-51.0); IMMATURE GRAN ABSOLUTE AUTO 0.13 K/mm3 (0.00-0.10); IMMATURE GRAN PERCENT AUTO 2 % (0-1); LYMPHOCYTES ABSOLUTE AUTO 1.47 K/mm3 (0.84-5.20); LYMPHOCYTES PERCENT AUTO 17 % (21-46); MONOCYTES ABSOLUTE AUTO 0.68 K/mm3 (0.16-1.47); MONOCYTES PERCENT AUTO 8 % (4-13); Mean Corpuscular HGB 29.2 pg (26.0-34.0); Mean Corpuscular HGB Conc 31.1 g/dL (31.5-36.5); Mean Corpuscular Volume 94 fL (80-100); NEUTROPHILS ABSOLUTE AUTO 6.18 K/mm3 (1.96-9.15); NEUTROPHILS PERCENT AUTO 72 % (41-73); Platelet Count 111 K/mm3 (150-400); RDW Coefficient Variation 15.1 % (11.7-14.2); RDW Standard Deviation 51.8 fL (35.1-46.3); Red Blood Cell Count 2.74 M/mm3 (3.80-5.20)
[2020-08-07 05:52] LABS: Albumin, Blood 1.5 g/dL (3.4-5.0); Anion Gap 7 mmol/L (6-16); Blood Urea Nitrogen 23 mg/dL (8-24); Bun/Creatinine Ratio 28.8 (12.0-20.0); CO2, Blood 27 mmol/L (21-32); Calcium, Blood 8.5 mg/dL (8.5-10.1); Chloride, Blood 103 mmol/L (98-108); Glomerular Filtration Rate >60 (60-); Glucose, Blood 123 mg/dL (70-99); Magnesium, Blood 1.9 mg/dL (1.6-2.4); Phosphorus, Blood 2.2 mg/dL (2.5-4.9); Potassium, Blood 3.5 mmol/L (3.5-5.5); Sodium, Blood 137 mmol/L (136-145)
--- NOTE | 2020-08-07 05:54 | NUR ---
08/07/20 0600 PT SLEEPING ON AND OFF NOW. VITALS STABLE. REPOSITIONED WHEN PT WOULD LET STAFF. RN STRESSED IMPORTANCE OF TURNING OFTEN TO PRESENT COMPLICATIONS. MEDICATED ONCE FOR "BUTT" AND BACK DISCOMFORT PER JAN. INCONTINENT OF URINE SEVERAL TIMES THIS SHIFT.
--- NOTE | 2020-08-07 11:32 | NUR ---
DISCUSSED WITH CHARITY TUG BOAT ENGINEER ABOUT THE A1C OF THE PT, WHICH WAS 9.1. SHE WAS CONCERNED THAT THE DM OF THE PT WAS NOT BEING CONTROLLED.
--- NOTE | 2020-08-07 14:20 | NUR ---
Ethics Update: Chart notes reviewed, conversations with garcía stakeholders conducted, and a one-on-one interview with the principal was facilitated. Concerns were expressed by the provider that the disabled principal, who has a recent history of refusing placement, transfer options and some care, might lack adequate capacity to properly and safely navigate medical and treatment decisions. After a lengthy discussion with the hospitalist, the principal (Ayaka) has finally agreed to IV antiobiotic therapy and domiciling at [facility] for rehabilitation services. Ayaka appears to sufficiently understand the information relevant to treatment, appreciate the situation and its consequences, and be able to make and express medical choices. Asher judgement and insight might be lower than average, but currently her decisional capacity seems intact. When I questioned her on the matter of placement, she told me that in order to be successful at home, she would need to first complete approximately six weeks of inpatient therapy at [facility]. In probing further to ascertain whether or not Ayaka is favorably disposed to this strategy, she disclosed to me that she has prior positive experience with their facility and services, and has no active concerns or apprehensions about moving forward with the plan. Thank you for this consult, Miguel Angel Valdivia Th.D.
--- NOTE | 2020-08-07 15:46 | NUR ---
SHIFT SUMMARY PT IS A 59 YO FEMALE, WHO WAS ADMITTED FOR MRSA BACTEREMIA. SHE IS ON CONTACT PRECAUTION, NO TELE, ON ROOM AIR, ON SCD. PT IS ABLE TO TURN WITH 1 PERSON ASSISTS & A LITTLE BIT OF CUES. PT IS INCONTINENT. PT WORKED WITH PHYSICAL THERAPIST TODAY; PT DANGLE ON THE SIDE OF THE BED. PT HAS NO APPETITE FOR BREAKFAST AND LUNCH TODAY, ENCOURAGED PO. NO C/O PAIN, SOB, CP, CLEAR LUNG SONDS. PT SEEN BY ETHICS, FLORESITA JACKSON TODAY, AWAITS FOR PLACEMENT. PT HAS RED AREA ON HER SACRUM, MEFELEX CHANGED TODAY. PT ALSO HAS SCATTERED RASH ON HER BILAT UPPER EXTREMITIES, DR ISTRATE AWARE AND ORDERED CLOBETASOL TOPICAL BID. BED IN IN THE LOWEST POSITION, CALL LIGHT WITHIN REACH. WILL CONTINUE MONITOR UNTIL NEXT SHIFT REPORT.
--- NOTE | 2020-08-07 18:07 | NUR ---
review of pt with nursing. Review of eithic note. Will continue to work with family to assist with decision making.
[2020-08-07 21:22] LABS: Vancomycin, Trough 17.9 ug/mL (5.0-10.0)
--- NOTE | 2020-08-08 04:05 | NUR ---
SHIFT SUMMARY PT A/O X 3. APPEARS TO HAVE SOME BASELINE DEVELOPMENTAL DELAY. LACKS MOTIVATION. REQUIRES CUES TO ASSIST WITH TURNING AND REPOSITIONING. DOES NOT LIKE TO HAVE HOB ELEVATED. INCONTINENT OF URINE. NO BM'S THIS SHIFT. SMALL CRACK IN SKIN AT THE TOP OF GLUTEAL CLEFT. PT INITIALLY DENIED PAIN BUT THEN DID REPORT SOME PAIN TO BLE'S. DECLINED ANY PAIN MEDICATION. PT AWAKE MUCH OF THE SHIFT. ONLY SLEEPING FOR SHORT PERIODS OF TIME OFF AND ON. NO ACUTE CHANGES THIS SHIFT. VITAL SIGNS STABLE. WILL CONTINUE TO MONITOR AND REPORT TO DAY RN.
[2020-08-08 05:11] LABS: BASOPHILS ABSOLUTE AUTO 0.04 K/mm3 (0.00-0.23); BASOPHILS PERCENT AUTO 0 % (0-2); EOSINOPHILS PERCENT AUTO 1 % (0-6); Hematocrit 28.4 % (33.0-51.0); Hemoglobin 8.7 g/dL (11.5-16.0); IMMATURE GRAN ABSOLUTE AUTO 0.17 K/mm3 (0.00-0.10); IMMATURE GRAN PERCENT AUTO 2 % (0-1); LYMPHOCYTES ABSOLUTE AUTO 1.83 K/mm3 (0.84-5.20); LYMPHOCYTES PERCENT AUTO 17 % (21-46); MONOCYTES ABSOLUTE AUTO 0.86 K/mm3 (0.16-1.47); MONOCYTES PERCENT AUTO 8 % (4-13); Mean Corpuscular HGB 28.5 pg (26.0-34.0); Mean Corpuscular HGB Conc 30.6 g/dL (31.5-36.5); Mean Corpuscular Volume 93 fL (80-100); Mean Platelet Volume 10.7 fL (9.1-12.4); NEUTROPHILS ABSOLUTE AUTO 7.98 K/mm3 (1.96-9.15); NEUTROPHILS PERCENT AUTO 73 % (41-73); Platelet Count 119 K/mm3 (150-400); RDW Coefficient Variation 15.2 % (11.7-14.2); RDW Standard Deviation 51.8 fL (35.1-46.3); Red Blood Cell Count 3.05 M/mm3 (3.80-5.20); White Blood Cell Count 10.98 K/mm3 (4.00-11.30)
[2020-08-08 06:08] LABS: Albumin, Blood 1.6 g/dL (3.4-5.0); Anion Gap 7 mmol/L (6-16); Blood Urea Nitrogen 22 mg/dL (8-24); Bun/Creatinine Ratio 24.7 (12.0-20.0); CO2, Blood 27 mmol/L (21-32); Calcium, Blood 8.6 mg/dL (8.5-10.1); Chloride, Blood 103 mmol/L (98-108); Creatinine, Blood 0.89 mg/dL (0.40-1.00); Glomerular Filtration Rate >60 (60-); Glucose, Blood 169 mg/dL (70-99); Magnesium, Blood 1.7 mg/dL (1.6-2.4); Phosphorus, Blood 2.6 mg/dL (2.5-4.9); Potassium, Blood 3.7 mmol/L (3.5-5.5); Sodium, Blood 137 mmol/L (136-145)
--- NOTE | 2020-08-08 16:32 | NUR ---
SHIFT SUMMARY PATIENT MEDICATED X1 FOR PAIN, DENIES NAUSEA AND SHORTNESS OF BREATH. PATIENT WORKED WITH PT AND OT. PATIENT ABLE TO DANGLE BUT WAS NOT ABLE TO BEAR WEIGHT TO STAND. THIS MORNING PATIENT WAS OPPOSED TO GOING TO SNF BUT STATED SHE KNEW SHE NEEDED REHAB AFTER BEING UNABLE TO STAND TODAY. PATIENT HAS NOT HAD BM DOCUMENETED SINCE ADMISSION ON 07/28. BOWEL CARE GIVEN. PATIENT STATES SHE DOES NO ANT TO HAVE BM AT HOSPITAL AND WANTS TO "GO WHEN SHE GETS HOME." RISKS OF CONSTIPATION DISCUSSED WITH PATIETN WITH LITTLE EFFECT. POSSIBLE DISCHARGE TOMORROW.
--- NOTE | 2020-08-09 05:25 | NUR ---
police shift commander summary pt reported she had some trouble sleeping tonight. white noise machine provided to help pt sleep. pt denied pain, nausea, dizziniess. pleasant and cooperative. vss. no acute changes. bed alarm on. mays patent and draining.
--- NOTE | 2020-08-09 05:27 | NUR ---
auto air conditioning mechanic summary pt reports she has some trouble sleeping tonight. white noise machine provided to help pt sleep. pt denies pain, nausea, dizziness. vss. no acute changes. pleasant and cooperative. bed alarm on.
[2020-08-09 06:56] LABS: Hematocrit 26.6 % (33.0-51.0); Hemoglobin 8.2 g/dL (11.5-16.0)
[2020-08-09 07:17] LABS: Albumin, Blood 1.7 g/dL (3.4-5.0); Anion Gap 4 mmol/L (6-16); Blood Urea Nitrogen 23 mg/dL (8-24); Bun/Creatinine Ratio 24.7 (12.0-20.0); CO2, Blood 30 mmol/L (21-32); Calcium, Blood 8.9 mg/dL (8.5-10.1); Chloride, Blood 105 mmol/L (98-108); Creatinine, Blood 0.93 mg/dL (0.40-1.00); Glomerular Filtration Rate >60 (60-); Glucose, Blood 119 mg/dL (70-99); Magnesium, Blood 1.8 mg/dL (1.6-2.4); Phosphorus, Blood 2.4 mg/dL (2.5-4.9); Potassium, Blood 3.8 mmol/L (3.5-5.5); Sodium, Blood 139 mmol/L (136-145)
--- NOTE | 2020-08-09 14:17 | NUR ---
1400 SPOKE WITH AVRIL, PTS , AND SHE STATED IT IS HER DESIRE THAT THE PATIENT RETURNS BACK TO A SNF FOR REHAB . FAMILY IS RELOCATING BACK TO [place] AND AND DAUGHTER ARE UNBALE TO CARE FOR AND TRANFER PT DUE TO HIS INCREASED WEAKNESS AND INABILTY TO CARE FOR HIMSELF AND WALK MORE THAN A FEW FEET WITHOUT HAVING TO SIT DOWN. TOLD THIS NURSE THAT HER AND HER DAUGHTER WERE PLANNING ON LEAVING THURSDAY FOR [place] AND WOULD RETURN IN A COUPLE OF WEEKS TO GET THE PT ONCE HE HAD [facility]. SAID SHE DID NOT WANT HIM TO GO BACK TO [facility] DUE TO HIS LAST EXPERIENCE THERE. ALSO SAID THAT THE PT HAS DEMENTIA WHICH EXPLAINS HIS BEHAVIOR . PT DID WORK WITH PT THIS SHIFT.
--- NOTE | 2020-08-09 15:17 | NUR ---
1430 CALLED TO GIVE REPORT BUT WAS TOLD NO BED AVAILABLE AND THE NURSE WOULD CALL ME BACK . TRANSPORT SHOWED UP 30 MINUTES LATER TO TAKE HER TO [facility]. THIS NURSE HAS NOT GIVEN REPORT AT THIS TIME. PT HAD TEMP OF 98 DEGREES.
--- NOTE | 2020-08-09 15:25 | NUR ---
1525 PT TO DISCHARGE TO [facility]. PG LEFT IN PLACE PER ORDER AND FOR ABX TREATMENTS. THIS NURSE ATTEMPTED TO CALL AND GIVE REPORT AT 1430 BUT NURSE WAS UNABLE TO CONFIRM BED AND THIS NURSE WAS TOLD THEY WOULD CALL BACK. 1500 PTS RIDE FROM [facility] SHOWED UP. PT WAS PREPPED TO GO, TEMP TAKEN AND WAS 98.0 DEGREES. PT PUT IN CHAIR BY STAFF AND TAKEN DOWN TO WAITING CAR.
== END 2020-08-09 15:31 | DRG 314 ==
LOC: ER 14:08 → PCU 16:04 → MEDS 08-05 22:25 → ENPENDDIS 08-08 16:09 → MEDS 08-09 15:31
PROVIDERS: Emergency Medicine; Internal Medicine; Internal Medicine Cardiovascular Disease; Internal Medicine Nephrology; Pharmacist; ADMIT Family Medicine
PROC: 05PY33Z Removal of Infusion Device from Upper Vein, Percutaneous Approach (ICD-10-PCS; principal; 2020-07-31)
PROC: 30233N1 Transfusion of Nonautologous Red Blood Cells into Peripheral Vein, Percutaneous Approach (ICD-10-PCS; 2020-07-31)
DX: T82.7XXA Infection and inflammatory reaction due to other cardiac and vascular devices, implants and grafts, initial encounter (principal); A41.02 Sepsis due to Methicillin resistant Staphylococcus aureus; G92 Toxic encephalopathy; N18.6 End stage renal disease; R65.21 Severe sepsis with septic shock; I12.0 Hypertensive chronic kidney disease with stage 5 chronic kidney disease or end stage renal disease; E46 Unspecified protein-calorie malnutrition; E87.1 Hypo-osmolality and hyponatremia; N17.9 Acute kidney failure, unspecified; N39.0 Urinary tract infection, site not specified; Z68.43 Body mass index [BMI] 50.0-59.9, adult; Z20.828 Contact with and (suspected) exposure to other viral communicable diseases; E11.22 Type 2 diabetes mellitus with diabetic chronic kidney disease; Z99.2 Dependence on renal dialysis; D63.1 Anemia in chronic kidney disease; D69.6 Thrombocytopenia, unspecified; E11.65 Type 2 diabetes mellitus with hyperglycemia; E66.01 Morbid (severe) obesity due to excess calories; E83.39 Other disorders of phosphorus metabolism; E87.6 Hypokalemia; E87.70 Fluid overload, unspecified; E88.09 Other disorders of plasma-protein metabolism, not elsewhere classified; E88.81 Metabolic syndrome and other insulin resistance; F32.9 Major depressive disorder, single episode, unspecified; F41.9 Anxiety disorder, unspecified; F79 Unspecified intellectual disabilities; Z66 Do not resuscitate; I36.8 Other nonrheumatic tricuspid valve disorders; R21 Rash and other nonspecific skin eruption; Z87.891 Personal history of nicotine dependence
CPT/HCPCS: 36415; 36430; 36600; 51702; 71045; 80053; 80069; 80202; 81001; 82803; 82947; 83036; 83605; 83735; 84100; 84132; 84484; 85014; 85018; 85025; 85384; 85610; 85730; 86140; 86850; 86900; 86901; 86923; 87040; 87070; 87077; 87086; 87147; 87186; 93005; 93010; 93306; 96361-59; 96374-59; 97110; 97162; 97166; 97530; 97535; 99284-25; A9270; A9270-GY; C1751; J0692; J0696; J0881; J1644; J1815; J2060; J2370; J2704; J2765; J3370; J7030; J7050; J7060; J7120; P9016; P9035; U0002

== ENCOUNTER 2020-08-22 00:26 | Day surgery (SDC) | payer OTHER ==
[~2020-08-22 00:26] MED LIST changes: +ABILIFY MYCITE15 MG PO; +ATHLETE'S FOO35.4 GM TOP; +BRINTELLIX10 MG PO; +CLON.5 PO; +EFFEXOR XR37.5 MG PO; +METO5 PO; +MIDO5 PO; +Milk Of Ma400 MG/5 M PO; +Nicoderm Cq1 EAC1 TOP; +PANT40 PO; +VITAMIN D325 MC3 PO; +Verapamil HCl240 M1 PO
== END 2020-08-22 14:37 | disposition home or self-care (01) ==
LOC: ATC 00:26
DX: I33.0 Acute and subacute infective endocarditis (principal); E11.42 Type 2 diabetes mellitus with diabetic polyneuropathy; E11.22 Type 2 diabetes mellitus with diabetic chronic kidney disease; F43.12 Post-traumatic stress disorder, chronic; I12.9 Hypertensive chronic kidney disease with stage 1 through stage 4 chronic kidney disease, or unspecified chronic kidney disease; N18.2 Chronic kidney disease, stage 2 (mild); D63.1 Anemia in chronic kidney disease; Z79.899 Other long term (current) drug therapy; Z88.0 Allergy status to penicillin; Z66 Do not resuscitate; Z79.4 Long term (current) use of insulin
CPT/HCPCS: 36569; C1751

== ENCOUNTER 2020-09-08 16:22 | Emergency (ER) | payer OTHER ==
[~2020-09-08] VITALS: Ht 167.6 cm; Wt 136.1 kg
== END 2020-09-08 19:30 | disposition home or self-care (01) ==
LOC: ER 16:22
DX: Z45.2 Encounter for adjustment and management of vascular access device (principal); F32.9 Major depressive disorder, single episode, unspecified; E11.9 Type 2 diabetes mellitus without complications; Z88.0 Allergy status to penicillin; Z79.4 Long term (current) use of insulin; Z79.899 Other long term (current) drug therapy; Z87.891 Personal history of nicotine dependence
CPT/HCPCS: 71045; 99283-25

== ENCOUNTER → 2020-09-12 | Outpatient (CLI) | payer OTHER ==
[2020-09-12 19:57] LABS: BASOPHILS ABSOLUTE AUTO 0.03 K/mm3 (0.00-0.23); BASOPHILS PERCENT AUTO 0 % (0-2); EOSINOPHILS ABSOLUTE AUTO 0.29 K/mm3 (0.00-0.68); EOSINOPHILS PERCENT AUTO 3 % (0-6); Hemoglobin 10.6 g/dL (11.5-16.0); IMMATURE GRAN ABSOLUTE AUTO 0.05 K/mm3 (0.00-0.10); IMMATURE GRAN PERCENT AUTO 1 % (0-1); LYMPHOCYTES ABSOLUTE AUTO 1.99 K/mm3 (0.84-5.20); LYMPHOCYTES PERCENT AUTO 23 % (21-46); MONOCYTES ABSOLUTE AUTO 0.57 K/mm3 (0.16-1.47); MONOCYTES PERCENT AUTO 7 % (4-13); Mean Corpuscular HGB Conc 28.6 g/dL (31.5-36.5); Mean Corpuscular Volume 94 fL (80-100); Mean Platelet Volume 9.7 fL (9.1-12.4); NEUTROPHILS ABSOLUTE AUTO 5.64 K/mm3 (1.96-9.15); NEUTROPHILS PERCENT AUTO 66 % (41-73); Platelet Count 250 K/mm3 (150-400); RDW Coefficient Variation 17.3 % (11.7-14.2); RDW Standard Deviation 60.3 fL (35.1-46.3); Red Blood Cell Count 3.93 M/mm3 (3.80-5.20); White Blood Cell Count 8.57 K/mm3 (4.00-11.30)
[2020-09-12 20:11] LABS: Albumin, Blood 2.6 g/dL (3.4-5.0); Albumin/Globulin Ratio 0.5 (0.8-1.8); Bilirubin, Total 0.4 mg/dL (0.1-1.0); Bun/Creatinine Ratio 16.4 (12.0-20.0); Calcium, Blood 8.7 mg/dL (8.5-10.1); Creatinine, Blood 1.1 mg/dL (0.40-1.00); Globulin, Blood 5.6 g/dL (2.2-4.0); Potassium, Blood 4.3 mmol/L (3.5-5.5); Total Protein, Blood 8.2 g/dL (6.4-8.2)
== END | disposition home or self-care (01) ==
LOC: LAB HH 18:39 → LAB SHORT 18:39
PROVIDERS: Internal Medicine Infectious Disease
DX: I33.0 Acute and subacute infective endocarditis (principal); Z79.2 Long term (current) use of antibiotics
CPT/HCPCS: 80053; 82550; 85025

== ENCOUNTER 2020-09-30 22:44 | Emergency (ER) | payer OTHER ==
[~2020-09-30] VITALS: Ht 167.6 cm; Wt 136.1 kg
[2020-09-30 23:21] LABS: Source, Urine Clean Catch
[2020-09-30 23:27] LABS: Appearance, Urine Cloudy (Clear); Bilirubin, Urine Neg (Neg); Blood, Urine 5+ (Neg); Color, Urine Yellow (P-Yellow); Glucose Qualitative, Urine 1+ (Neg); Ketones, Urine Neg (Neg); Leukocyte Esterase, Urine 3+ (Neg); Nitrite, Urine Pos (Neg); Protein, Urine 3+ (Neg); Urobilinogen, Urine NORM (Normal)
[2020-09-30 23:33] LABS: Bacteria Many /hpf; Red Blood Cells, Urine 0-2 /hpf (0-2); Squamous Epithelial Cells Few /hpf (Few); White Blood Cells, Urine TNTC /hpf (0-5)
[2020-09-30 23:39] LABS: BASOPHILS ABSOLUTE AUTO 0.04 K/mm3 (0.00-0.23); BASOPHILS PERCENT AUTO 0 % (0-2); EOSINOPHILS ABSOLUTE AUTO 0.27 K/mm3 (0.00-0.68); EOSINOPHILS PERCENT AUTO 3 % (0-6); Hematocrit 35.6 % (33.0-51.0); Hemoglobin 10.5 g/dL (11.5-16.0); IMMATURE GRAN ABSOLUTE AUTO 0.03 K/mm3 (0.00-0.10); IMMATURE GRAN PERCENT AUTO 0 % (0-1); LYMPHOCYTES ABSOLUTE AUTO 2.36 K/mm3 (0.84-5.20); LYMPHOCYTES PERCENT AUTO 26 % (21-46); MONOCYTES ABSOLUTE AUTO 0.85 K/mm3 (0.16-1.47); MONOCYTES PERCENT AUTO 9 % (4-13); Mean Corpuscular HGB 26.9 pg (26.0-34.0); Mean Corpuscular HGB Conc 29.5 g/dL (31.5-36.5); Mean Corpuscular Volume 91 fL (80-100); Mean Platelet Volume 9.1 fL (9.1-12.4); NEUTROPHILS ABSOLUTE AUTO 5.51 K/mm3 (1.96-9.15); NEUTROPHILS PERCENT AUTO 61 % (41-73); Platelet Count 267 K/mm3 (150-400); RDW Coefficient Variation 17.6 % (11.7-14.2); RDW Standard Deviation 58.8 fL (35.1-46.3); White Blood Cell Count 9.06 K/mm3 (4.00-11.30)
[2020-09-30 23:57] LABS: Albumin, Blood 2.6 g/dL (3.4-5.0); Albumin/Globulin Ratio 0.6 (0.8-1.8); Bilirubin, Total 0.2 mg/dL (0.1-1.0); Bun/Creatinine Ratio 20.7 (12.0-20.0); Creatinine, Blood 1.11 mg/dL (0.40-1.00); Globulin, Blood 4.7 g/dL (2.2-4.0); Potassium, Blood 3.9 mmol/L (3.5-5.5); Total Protein, Blood 7.3 g/dL (6.4-8.2)
[2020-10-01] MEDS ORDERED: Bactrim Ds Tab1 EACH PO (00:16)
== END 2020-10-01 00:50 | disposition home or self-care (01) ==
LOC: ER 22:44
PROVIDERS: Physician Assistant
DX: N39.0 Urinary tract infection, site not specified (principal); F32.9 Major depressive disorder, single episode, unspecified; E11.9 Type 2 diabetes mellitus without complications; Z88.0 Allergy status to penicillin; Z79.4 Long term (current) use of insulin; Z79.899 Other long term (current) drug therapy
CPT/HCPCS: 80053; 81001; 85025; 87077; 87086; 87186; 99284; A9270-GY

== ENCOUNTER 2020-10-12 14:32 | Emergency (ER) | payer OTHER ==
[~2020-10-12] VITALS: Ht 167.6 cm; Wt 145.6 kg
[2020-10-12 16:05] LABS: BASOPHILS ABSOLUTE AUTO 0.04 K/mm3 (0.00-0.23); BASOPHILS PERCENT AUTO 0 % (0-2); EOSINOPHILS PERCENT AUTO 3 % (0-6); Hematocrit 35.5 % (33.0-51.0); Hemoglobin 10.9 g/dL (11.5-16.0); IMMATURE GRAN ABSOLUTE AUTO 0.04 K/mm3 (0.00-0.10); IMMATURE GRAN PERCENT AUTO 0 % (0-1); LYMPHOCYTES ABSOLUTE AUTO 3.26 K/mm3 (0.84-5.20); LYMPHOCYTES PERCENT AUTO 35 % (21-46); MONOCYTES ABSOLUTE AUTO 0.84 K/mm3 (0.16-1.47); MONOCYTES PERCENT AUTO 9 % (4-13); Mean Corpuscular HGB 26.4 pg (26.0-34.0); Mean Corpuscular HGB Conc 30.7 g/dL (31.5-36.5); Mean Corpuscular Volume 86 fL (80-100); Mean Platelet Volume 9.5 fL (9.1-12.4); NEUTROPHILS ABSOLUTE AUTO 4.78 K/mm3 (1.96-9.15); NEUTROPHILS PERCENT AUTO 52 % (41-73); Platelet Count 443 K/mm3 (150-400); RDW Coefficient Variation 16.9 % (11.7-14.2); RDW Standard Deviation 53.1 fL (35.1-46.3); Red Blood Cell Count 4.13 M/mm3 (3.80-5.20); White Blood Cell Count 9.26 K/mm3 (4.00-11.30)
[2020-10-12 16:32] LABS: Albumin, Blood 3.3 g/dL (3.4-5.0); Albumin/Globulin Ratio 0.6 (0.8-1.8); Beta-hydroxybutyrate 1.6 mg/dL (0.2-2.8); Bilirubin, Total 0.2 mg/dL (0.1-1.0); Bun/Creatinine Ratio 20.5 (12.0-20.0); Calcium, Blood 9.6 mg/dL (8.5-10.1); Creatinine, Blood 2.15 mg/dL (0.40-1.00); Globulin, Blood 5.9 g/dL (2.2-4.0); Potassium, Blood 3.2 mmol/L (3.5-5.5); Total Protein, Blood 9.2 g/dL (6.4-8.2)
[2020-10-12 17:29] LABS: Source, Urine Clean Catch
[2020-10-12 17:39] LABS: Appearance, Urine Clear (Clear); Bilirubin, Urine Neg (Neg); Blood, Urine 3+ (Neg); Color, Urine Yellow (P-Yellow); Glucose Qualitative, Urine Neg (Neg); Ketones, Urine Neg (Neg); Leukocyte Esterase, Urine 3+ (Neg); Nitrite, Urine Neg (Neg); Protein, Urine Neg (Neg); Urobilinogen, Urine NORM (Normal); pH, Urine 6.5 (5.0-8.0)
[2020-10-12 17:53] LABS: Bacteria Mod /hpf; Squamous Epithelial Cells Few /hpf (Few)
== END 2020-10-12 21:09 | disposition home or self-care (01) ==
LOC: ER 14:32
PROVIDERS: Emergency Medicine
DX: N39.0 Urinary tract infection, site not specified (principal); E11.65 Type 2 diabetes mellitus with hyperglycemia; I10 Essential (primary) hypertension; F32.9 Major depressive disorder, single episode, unspecified; Z88.0 Allergy status to penicillin; Z79.4 Long term (current) use of insulin; Z87.891 Personal history of nicotine dependence; Z79.899 Other long term (current) drug therapy
CPT/HCPCS: 36415; 80053; 81001; 82010; 82947; 85025; 87077; 87086; 87186; 96360; 96361; 99284-25; J1815; J7030

== ENCOUNTER 2020-10-22 09:30 | Inpatient (IN) | payer OTHER ==
[~2020-10-22] VITALS: Ht 167.6 cm; Wt 140.0 kg
[2020-10-22 10:08] LABS: Source, Urine Catheter
[2020-10-22 10:09] LABS: BASOPHILS ABSOLUTE AUTO 0.03 K/mm3 (0.00-0.23); BASOPHILS PERCENT AUTO 0 % (0-2); EOSINOPHILS PERCENT AUTO 0 % (0-6); Hematocrit 35.8 % (33.0-51.0); Hemoglobin 11.1 g/dL (11.5-16.0); IMMATURE GRAN ABSOLUTE AUTO 0.24 K/mm3 (0.00-0.10); IMMATURE GRAN PERCENT AUTO 1 % (0-1); LYMPHOCYTES ABSOLUTE AUTO 0.57 K/mm3 (0.84-5.20); LYMPHOCYTES PERCENT AUTO 3 % (21-46); MONOCYTES ABSOLUTE AUTO 1.23 K/mm3 (0.16-1.47); MONOCYTES PERCENT AUTO 5 % (4-13); Mean Corpuscular HGB 25.9 pg (26.0-34.0); Mean Corpuscular Volume 83 fL (80-100); Mean Platelet Volume 9.7 fL (9.1-12.4); NEUTROPHILS ABSOLUTE AUTO 20.64 K/mm3 (1.96-9.15); NEUTROPHILS PERCENT AUTO 91 % (41-73); Platelet Count 301 K/mm3 (150-400); RDW Coefficient Variation 16.9 % (11.7-14.2); Red Blood Cell Count 4.29 M/mm3 (3.80-5.20); White Blood Cell Count 22.71 K/mm3 (4.00-11.30)
[2020-10-22 10:17] LABS: Appearance, Urine Hazy (Clear); Bilirubin, Urine Neg (Neg); Blood, Urine 5+ (Neg); Color, Urine Yellow (P-Yellow); Glucose Qualitative, Urine 4+ (Neg); Ketones, Urine 1+ (Neg); Leukocyte Esterase, Urine 3+ (Neg); Nitrite, Urine Neg (Neg); Protein, Urine 3+ (Neg); Urobilinogen, Urine NORM (Normal); pH, Urine 6.5 (5.0-8.0)
[2020-10-22 10:26] LABS: Red Blood Cells, Urine TNTC /hpf (0-2); White Blood Cells, Urine TNTC /hpf (0-5)
[2020-10-22 10:27] LABS: Albumin, Blood 2.7 g/dL (3.4-5.0); Albumin/Globulin Ratio 0.4 (0.8-1.8); Bilirubin, Total 0.5 mg/dL (0.1-1.0); Bun/Creatinine Ratio 31.8 (12.0-20.0); Calcium, Blood 9.8 mg/dL (8.5-10.1); Creatinine, Blood 1.95 mg/dL (0.40-1.00); Globulin, Blood 6.4 g/dL (2.2-4.0); Potassium, Blood 2.7 mmol/L (3.5-5.5); Total Protein, Blood 9.1 g/dL (6.4-8.2)
[2020-10-22 10:27] LABS: Bacteria Many /hpf; Squamous Epithelial Cells Many /hpf (Few); Transitional Epithelial Cells Few /hpf (0-Rare)
[2020-10-22] MEDS ORDERED: WARF5 PO ×2 (11:44→11:47)
[2020-10-22] MEDS ORDERED: BUME2 PO (11:45)
[2020-10-22] MEDS ORDERED: SPIR25 PO (11:45)
[2020-10-22] MEDS ORDERED: VERA240ER PO (11:45)
[2020-10-22] MEDS ORDERED: ABILIFY MYCITE15 MG PO (11:46)
[2020-10-22] MEDS ORDERED: GABA300 PO (11:46)
[2020-10-22] MEDS ORDERED: PANT40 PO (11:46)
[2020-10-22] MEDS ORDERED: QUET100 PO (11:46)
[2020-10-22] MEDS ORDERED: EFFEXOR XR37.5 MG PO (11:47)
[2020-10-22] MEDS ORDERED: POTA10T PO (11:47)
[2020-10-22] MEDS ORDERED: VENL75ER PO (11:47)
[2020-10-22] MEDS ORDERED: ONDA4 PO (11:48)
[2020-10-22] MEDS ORDERED: COLCHICINE0.6 MG PO (11:48)
[2020-10-22] MEDS ORDERED: Vitamin D2000 UNIT PO (11:48)
[2020-10-22] MEDS ORDERED: MIDO5 PO (11:48)
[2020-10-22] MEDS ORDERED: BASAGLAR K100 UNIT/1 SC (11:49)
[2020-10-22] MEDS ORDERED: HUMALOG KW100 UNIT/1 SC (11:49)
[2020-10-22 12:49] LABS: International Normalized Ratio 1.29; Prothrombin Time Results 13.6 Sec (9.7-11.5)
[2020-10-22 13:08] LABS: Glucose, Blood 578 mg/dL (70-99)
--- NOTE | 2020-10-22 15:17 | NUR ---
NURSING PCU DAYSHIFT: Assumed care of pt at approx 1300. Arrived from ER via gurney accompanied by RNcortney to unit bed via slider sheet. Pt mildly anxious though fairly oriented and able to answer questions appropriately. Mild weakness noted, able to minimally assist w/ADL's and repostioning. Skin noted to have breakdown to L buttock as well as redness under folds, otherwise intact. Tele in place, NSR, no c/o CP/pressure, BP stable, trace BLE edema. L/S fairly cta t/o, O2 sat stable on RA, denies dyspnea, no noted cough. Abd obese, SNT, BT+, incontinent of urine. PIV x2, PG placed in LUE, IVF and abx infusing as per d/o. No s/s of acute distress at this time, call light in reach and pt has demonstrated ability to use w/o difficulty. No s/s of acute distress at this time, call light in reach and pt is able to use w/o difficulty. Pt denies any current needs, cont to monitor for any changes.
[2020-10-22 18:07] LABS: Bun/Creatinine Ratio 32.4 (12.0-20.0); Creatinine, Blood 1.82 mg/dL (0.40-1.00); Potassium, Blood 2.4 mmol/L (3.5-5.5)
[2020-10-22 18:09] LABS: CPK Creatine Kinase 38 U/L (26-193)
[2020-10-23 02:12] LABS: BASOPHILS ABSOLUTE AUTO 0.03 K/mm3 (0.00-0.23); BASOPHILS PERCENT AUTO 0 % (0-2); EOSINOPHILS ABSOLUTE AUTO 0.01 K/mm3 (0.00-0.68); EOSINOPHILS PERCENT AUTO 0 % (0-6); Hematocrit 31.3 % (33.0-51.0); Hemoglobin 9.5 g/dL (11.5-16.0); IMMATURE GRAN PERCENT AUTO 1 % (0-1); LYMPHOCYTES ABSOLUTE AUTO 1.28 K/mm3 (0.84-5.20); LYMPHOCYTES PERCENT AUTO 8 % (21-46); MONOCYTES ABSOLUTE AUTO 1.75 K/mm3 (0.16-1.47); MONOCYTES PERCENT AUTO 11 % (4-13); Mean Corpuscular HGB 25.8 pg (26.0-34.0); Mean Corpuscular HGB Conc 30.4 g/dL (31.5-36.5); Mean Corpuscular Volume 85 fL (80-100); Mean Platelet Volume 9.6 fL (9.1-12.4); NEUTROPHILS ABSOLUTE AUTO 12.89 K/mm3 (1.96-9.15); NEUTROPHILS PERCENT AUTO 80 % (41-73); Platelet Count 233 K/mm3 (150-400); RDW Coefficient Variation 16.7 % (11.7-14.2); RDW Standard Deviation 52.2 fL (35.1-46.3); Red Blood Cell Count 3.68 M/mm3 (3.80-5.20); White Blood Cell Count 16.06 K/mm3 (4.00-11.30)
[2020-10-23 02:34] LABS: Albumin, Blood 2.1 g/dL (3.4-5.0); Albumin/Globulin Ratio 0.4 (0.8-1.8); Bilirubin, Total 0.3 mg/dL (0.1-1.0); Bun/Creatinine Ratio 34.7 (12.0-20.0); Calcium, Blood 9.2 mg/dL (8.5-10.1); Creatinine, Blood 1.96 mg/dL (0.40-1.00); Globulin, Blood 5.5 g/dL (2.2-4.0); Potassium, Blood 2.6 mmol/L (3.5-5.5); Total Protein, Blood 7.6 g/dL (6.4-8.2)
[2020-10-23 02:35] LABS: CPK Creatine Kinase 48 U/L (26-193)
--- NOTE | 2020-10-23 03:13 | NUR ---
UPDATE DR DELGADO NOTIFIED OF PATIENT'S POTASSIM LEVEL. ORDERS RECEIVED.
--- NOTE | 2020-10-23 07:49 | NUR ---
SHIFT SUMMARY PATIENT VERY ANXIOUS THROUGHOUT THE NIGHT. PATIENT KEPT CALLING OUT FREQUENLTY THROUGHOUT THE NIGHT. PATIENT WOULD FREQUENTLY CALL OUT, "I'M SCARED! I'M SCARED!" AND "I'M VERY SICK!" PATIENT PROVIDED WITH APPROPRIATE REASSURANCE AND SUPPORT. PATIENT DID NOT REORIENT OR REDIRECT WELL. PATIENT WOULD FREQUENTLY PULL OR FIDGT WITH LINES AND TELE. PATIENT TURNED AND CHECKED FREQUENTLY. VITAL SIGNS CHARTED. PATIENT MEDICATED FOR PAIN PER EMAR. REPORT GIVEN TO ONCOMING RN.
[2020-10-23 09:01] LABS: Vancomycin, Trough 23.4 ug/mL (5.0-10.0)
[2020-10-23] MEDS ORDERED: VENL75ER (10:55)
[2020-10-23 11:37] LABS: Bun/Creatinine Ratio 35.8 (12.0-20.0); Calcium, Blood 9.4 mg/dL (8.5-10.1); Creatinine, Blood 1.87 mg/dL (0.40-1.00); Magnesium, Blood 2.2 mg/dL (1.6-2.4); Potassium, Blood 3.3 mmol/L (3.5-5.5)
--- NOTE | 2020-10-23 11:39 | NUR ---
Caregiver Brenda edwards
--- NOTE | 2020-10-23 12:38 | NUR ---
Report given to Margi Lora RN. The pt will be transferring to room 341.
--- NOTE | 2020-10-23 12:41 | NUR ---
Call to Dr. Miller regarding the D/D PICC line order; explained that the pt does not have a PICC line, but she does have a powerglide which was placed yesterday. New order received to leave the powerglide in for now. Blood cultures were drawn earlier, one through the Powerglide and the other a venous draw from the right arm. This was all explained to the doctor.
--- NOTE | 2020-10-23 12:44 | NUR ---
pt was transferred to room 341 by the product safety technician, in her bed.
--- NOTE | 2020-10-23 16:09 | NUR ---
ALERT. APPEARS MENTALLY HANDICAPPED. WILL YELL OUT FOR "HELP" AND WHEN YOU ASK HER WHAT SHE NEEDS SAYS "HELP". TAKES AWHILE TO FIGURE OUT WHAT PATIENT NEEDS. TREMORS TO LEGS. IV PATENT. TURNED Q 2 HOURS. NO TELE. UNLABORED RESPIRATIONS. CAREGIVER NAME AND NUMBER IN PAPER CHART. CAREGIVER DID NOT WANT IT ON WHITE BOARD. COOPERATIVE WITH CARE. INCONTINENT. WC
--- NOTE | 2020-10-23 23:58 | NUR ---
1944 REPORT RECEIVED FROM AURELIA MONTEMAYOR; PT REPOSITIONED AND COVERED WITH EXTRA BLANKETS AND GIVEN DIET PEPSI; CALM AND COOPERATIVE; PTS NIGHT OVERHEAD LIGHT LEFT ON FOR COMFORT.
--- NOTE | 2020-10-24 03:58 | NUR ---
SHIFT SUMMARY: 59 Y/O OBESE FEMALE RESTED COMFORTABLY ALL SHIFT; PT REPOSITIONED FOR COMFORT NEEDED BY STAFF (DENIES NEED FOR PAIN MEDS AT THIS TIME); ALERT AND ORIENTED X 4 AND ABLE TO FOLLOW ALL SIMPLE VERBAL COMMANDS; HAPPY AND COOPERATIVE; BED ALARM APPLIED, BED LOW POSITION WITH CALL LIGHT AT SIDE; PT DOES REQUIRE 100% ASSISTANCE WITH ALL ADLS/IADLS.
[2020-10-24 08:24] LABS: BASOPHILS ABSOLUTE AUTO 0.03 K/mm3 (0.00-0.23); BASOPHILS PERCENT AUTO 0 % (0-2); EOSINOPHILS ABSOLUTE AUTO 0.08 K/mm3 (0.00-0.68); EOSINOPHILS PERCENT AUTO 1 % (0-6); Hematocrit 32.6 % (33.0-51.0); Hemoglobin 9.7 g/dL (11.5-16.0); IMMATURE GRAN ABSOLUTE AUTO 0.09 K/mm3 (0.00-0.10); IMMATURE GRAN PERCENT AUTO 1 % (0-1); LYMPHOCYTES ABSOLUTE AUTO 1.62 K/mm3 (0.84-5.20); LYMPHOCYTES PERCENT AUTO 12 % (21-46); MONOCYTES ABSOLUTE AUTO 1.57 K/mm3 (0.16-1.47); MONOCYTES PERCENT AUTO 11 % (4-13); Mean Corpuscular HGB 25.5 pg (26.0-34.0); Mean Corpuscular HGB Conc 29.8 g/dL (31.5-36.5); Mean Corpuscular Volume 86 fL (80-100); Mean Platelet Volume 10.8 fL (9.1-12.4); NEUTROPHILS ABSOLUTE AUTO 10.62 K/mm3 (1.96-9.15); NEUTROPHILS PERCENT AUTO 76 % (41-73); Platelet Count 203 K/mm3 (150-400); RDW Standard Deviation 53.5 fL (35.1-46.3); White Blood Cell Count 14.01 K/mm3 (4.00-11.30)
[2020-10-24 08:41] LABS: Albumin, Blood 2.1 g/dL (3.4-5.0); Albumin/Globulin Ratio 0.4 (0.8-1.8); Bilirubin, Total 0.3 mg/dL (0.1-1.0); Bun/Creatinine Ratio 35.4 (12.0-20.0); Calcium, Blood 9.3 mg/dL (8.5-10.1); Creatinine, Blood 2.09 mg/dL (0.40-1.00); Globulin, Blood 5.2 g/dL (2.2-4.0); Potassium, Blood 3.4 mmol/L (3.5-5.5); Total Protein, Blood 7.3 g/dL (6.4-8.2)
[2020-10-24 15:29] LABS: Vancomycin, Random 20.1 ug/mL
--- NOTE | 2020-10-24 18:21 | NUR ---
SHIFT SUMMARY- PT HAS HAD NO ACUTE CHANGES T/O THE DAY, SHE HAD A CAREGIVER COME IN WHO ASSISTED HER WITH A SHOWER, LINNENS CHANGED AT THAT TIME. PT HAS BEEN MORE AWAKE THIS AFTERNOON WELL. SHE HAS BEEN PLEASENT AND DID NOT CALL OUT AT ALL AFTER SHIFT CHANGE. SPOKE TO ABOUT THE PLAN AND PT WILL BE HERE FOR A WHILE NO PLAN IN PLACE AT THIS TIME. WILL PASS ON TO NIGHT RN.
--- NOTE | 2020-10-25 04:30 | NUR ---
SHIFT SUMMARY PATIENT HAD NO ACUTE CHANGES OBSERVED. AXOX 2 AND BEDREST. CBG 299. VSS/AFEBRILE. TAKES MEDICATION X 2-3 EACH IN APPLE SAUCE. RESTED COMFORTABLE THROUGHOUT SHIFT. DENIES PAIN, SOB, AND N/V. CALL LIGHT IN REACH. BED IN LOWEST POSITION. WILL CONTINUE TO MONITOR UNTIL DAY SHIFT NURSE ASSUMES CARE.
[2020-10-25 08:22] LABS: BASOPHILS ABSOLUTE AUTO 0.04 K/mm3 (0.00-0.23); BASOPHILS PERCENT AUTO 0 % (0-2); EOSINOPHILS ABSOLUTE AUTO 0.12 K/mm3 (0.00-0.68); EOSINOPHILS PERCENT AUTO 1 % (0-6); Hematocrit 33.3 % (33.0-51.0); Hemoglobin 10.3 g/dL (11.5-16.0); IMMATURE GRAN ABSOLUTE AUTO 0.16 K/mm3 (0.00-0.10); IMMATURE GRAN PERCENT AUTO 1 % (0-1); LYMPHOCYTES PERCENT AUTO 11 % (21-46); MONOCYTES ABSOLUTE AUTO 1.73 K/mm3 (0.16-1.47); MONOCYTES PERCENT AUTO 10 % (4-13); Mean Corpuscular HGB 26.3 pg (26.0-34.0); Mean Corpuscular HGB Conc 30.9 g/dL (31.5-36.5); Mean Corpuscular Volume 85 fL (80-100); Mean Platelet Volume 11.2 fL (9.1-12.4); NEUTROPHILS ABSOLUTE AUTO 13.82 K/mm3 (1.96-9.15); NEUTROPHILS PERCENT AUTO 77 % (41-73); Platelet Count 157 K/mm3 (150-400); RDW Coefficient Variation 17.2 % (11.7-14.2); Red Blood Cell Count 3.91 M/mm3 (3.80-5.20); White Blood Cell Count 17.87 K/mm3 (4.00-11.30)
[2020-10-25 08:44] LABS: Albumin/Globulin Ratio 0.4 (0.8-1.8); Bilirubin, Total 0.4 mg/dL (0.1-1.0); Bun/Creatinine Ratio 29.7 (12.0-20.0); Calcium, Blood 9.1 mg/dL (8.5-10.1); Creatinine, Blood 3.13 mg/dL (0.40-1.00); Globulin, Blood 5.4 g/dL (2.2-4.0); Potassium, Blood 3.5 mmol/L (3.5-5.5); Total Protein, Blood 7.4 g/dL (6.4-8.2)
--- NOTE | 2020-10-25 15:24 | NUR ---
1442 CALLED ABOUT PATIENT "NOT FEELING WELL". LUNGS COARSE UPPER LOBES, CLEAR LOWER. REQUEST BREATHING TREATMENT. NONE ORDERED. DUONEB ORDERED. REQUEST CALMING MED. ATIVAN 1 MG P.O. ONE TIME. MEDS ORDERED. 1445 REQUEST [employer] SALES CONSULTANT TO DO V.S. [employer] SALES CONSULTANT GOES INTO ROOM WITH RN BEHIND HER. PATIENT ON BED, EYES ROLLED BACK. RAPID CALLED. FIRST V.S. 66/43 SAT 98%. PIPELINE DISPATCH OPERATOR COMES. ATTEMPT TO CHECK PULSES, SHALLOW BREATHING. PUPILS FIXED. RAPID CALLED. CPR STARTED [id number]. ED MD IN TO INTUBATE.
== END 2020-10-25 17:45 | DRG 871 ==
LOC: ER 09:30 → PCU 12:56 → MEDS 10-23 12:49
PROVIDERS: Emergency Medicine; Internal Medicine; Pharmacist; ADMIT Internal Medicine
PROC: 02HV33Z Insertion of Infusion Device into Superior Vena Cava, Percutaneous Approach (ICD-10-PCS; principal; 2020-10-22)
DX: A41.02 Sepsis due to Methicillin resistant Staphylococcus aureus (principal); G93.41 Metabolic encephalopathy; N18.6 End stage renal disease; T80.211A Bloodstream infection due to central venous catheter, initial encounter; E87.1 Hypo-osmolality and hyponatremia; Z68.42 Body mass index [BMI] 45.0-49.9, adult; N39.0 Urinary tract infection, site not specified; I12.0 Hypertensive chronic kidney disease with stage 5 chronic kidney disease or end stage renal disease; Z20.828 Contact with and (suspected) exposure to other viral communicable diseases; Z66 Do not resuscitate; E11.22 Type 2 diabetes mellitus with diabetic chronic kidney disease; E11.65 Type 2 diabetes mellitus with hyperglycemia; E66.01 Morbid (severe) obesity due to excess calories; E86.0 Dehydration; E87.6 Hypokalemia; F32.9 Major depressive disorder, single episode, unspecified; Z87.891 Personal history of nicotine dependence; I46.9 Cardiac arrest, cause unspecified; Z86.79 Personal history of other diseases of the circulatory system; Z99.2 Dependence on renal dialysis
CPT/HCPCS: 31500; 36415; 70450; 71045; 80048; 80053; 80202; 81001; 82550; 82947; 83605; 83735; 83880; 84484; 85025; 85610; 85730; 87040; 87077; 87086; 87147; 87186; 93005; 93010; 96361; 96365; 96375; 99285-25; A9270; A9270-GY; G0008; J0696; J1265; J1644; J1650; J1956; J3370; J3480; J7030; J7040; J7050; Q2038